=== PATIENT | female | born 1950 | race Caucasian/White ===

== ENCOUNTER 2019-05-31 17:20 | Inpatient (IN) | payer MEDICARE, SELFPAY ==
[2019-05-31] VITALS (10 sets, daily range): BP systolic 132–168; BP diastolic 50–111; PULSE 56–124; RESP 18–20; TEMP 36.2–36.9; O2SAT 96–98; BMI 30.6
--- NOTE | ~2019-05-31 | US_ITS ---
EXAMINATION: US venous doppler LE EXAM DATE: 06/01/2019 16:09 INDICATION: Bilateral leg pain. TECHNIQUE: Multiple grayscale, color flow and Doppler images of the lower extremity deep venous syste ms bilaterally were obtained and reviewed. There is no prior study for comparison. FINDINGS: Right side: The right common femoral, femoral and profunda veins demonstrate normal color flow, respi ratory variation, augmentation and compressibility. Compressibility, color flow confirmed within the right popliteal, posterior tibial, peroneal, and greater saphenous veins. Left side: The left common femoral, femoral and profunda veins demonstrate normal color flow, respira tory variation, augmentation and compressibility. Compressibility, color flow confirmed within the l eft popliteal, posterior tibial, peroneal, and greater saphenous veins. IMPRESSION: 1. No lower extremity deep venous thrombosis bilaterally. Reviewed, dictated and finalized at location B. GER BILINGUAL
--- NOTE | ~2019-05-31 | US_ITS ---
EXAMINATION: US carotid duplex BI DATE: 06/01/2019 16:08 INDICATION: Syncope with multiple falls. Cerebral atherosclerosis. TECHNIQUE: Grayscale, color Doppler, and pulsed Doppler images of the cervical carotid arteries were obtained. The degree of vessel stenosis is placed in one of the following categories: normal, <50%, 5 0-69%, >=70% but less than near-occlusion, near-occlusion, or total occlusion. Note that percent sten osis relative to normal distal artery lumen diameter is indirectly measured from velocity measurement s as described by Arturo, et al. Radiology 2003; [id number]:[id number]. COMPARISON: None. FINDINGS: RIGHT: The right common carotid artery (CCA) peak systolic velocity (PSV) is 72 cm/s. The right internal car otid artery (ICA) PSV is 116 cm/s. The right ICA end-diastolic velocity (EDV) is 38 cm/s. The right I CA/CCA PSV ratio is 1.6. Grayscale and color Doppler images yield an estimate of <50% diameter reduct ion from plaque in the ICA. The external carotid artery (ECA) PSV is 187 cm/s. There is antegrade courtney w in the right vertebral artery. LEFT: The left CCA PSV is 85 cm/s. The left ICA PSV is 189 cm/s. The left ICA EDV is 60 cm/s. The left ICA/ CCA PSV ratio is 2.2. Grayscale and color Doppler images yield an estimate of 50-69% diameter reducti on from plaque in the ICA. The ECA PSV is 116 cm/s. There is antegrade flow in the left vertebral art anton. IMPRESSION: 1. <50% stenosis in the right internal carotid artery. 2. 50-69% stenosis in the left internal carotid artery. 3. Cardiac arrhythmia is present. Correlate with EKG. Reviewed, dictated and finalized at location A. NCT ART HISTORY INSTRUCTOR
--- NOTE | ~2019-05-31 | CT_ITS ---
EXAMINATION: CT brain wo con DATE: 05/31/2019 20:17 INDICATION: Closed head injury TECHNIQUE: Computed tomography (CT) of the head was performed without intravenous contrast. Sagittal and coronal reconstructions were performed. The mA was adjusted according to patient size. Iterative reconstruction technique was employed. The dose-length product was 605.33 mGy-cm. COMPARISON: head CT dated 01/01/2019 FINDINGS: No fracture. No acute intracranial hemorrhage, acute infarction or abnormal extra axial fluid collect ion. Unchanged small old lacunar infarcts at the head of the right caudate nucleus and adjacent anter ior limb of the right internal capsule. There is moderate scattered white matter hypoattenuation cons istent with chronic small vessel ischemic disease. Symmetric prominence of the sulci and subarachnoid spaces overlying the convexities consistent with mild to moderate age-appropriate diffuse cerebral v olume loss. Ventricles are normal and symmetric. No mass/mass effect. Changes of bilateral intraocula r lens replacement. The orbits and mastoid air cells are normal. Coastal thickening at the right fron estela sinus. Mild intracranial calcified cerebral atherosclerosis is noted at the carotid siphons. IMPRESSION: 1. No fracture or acute intracranial process. 2. Small old lacunar infarcts at the head of the right caudate nucleus and anterior limb of the right internal capsule. 3. Age-related changes including mild to moderate diffuse volume loss and moderate scattered white ma tter hypoattenuation consistent with chronic small vessel ischemic disease. Reviewed, dictated and finalized at location A. SIGNALER IMPRESSION: 1. No fracture or acute intracranial process. 2. Small old lacunar infarcts at the head of the right caudate nucleus and ante rior limb of the right internal capsule. 3. Age-related changes including mild to moderate diffuse volume loss and moder ate scattered white matter hypoattenuation consistent with chronic small vessel ischemic disease.
--- NOTE | ~2019-05-31 | XR_ITS ---
EXAMINATION: XR chest 2V DATE: 05/31/2019 18:33 INDICATION: Weakness TECHNIQUE: frontal and lateral views of the chest were obtained. COMPARISON: Chest radiograph dated 04/20/2018 FINDINGS: No focal airspace opacities, pulmonary edema, pleural effusion or pneumothorax. Cardiomegaly. Coronar y artery stenting. Plate-screw fixation for lower cervical anterior spinal fusion. Moderate thoracic spondylosis. IMPRESSION: 1. Cardiomegaly. Reviewed, dictated and finalized at location A. E TENDER IMPRESSION: 1. Cardiomegaly.
--- NOTE | 2019-05-31 18:03 | ECG_ITS ---
Measurements Intervals [place] Rate: 117 P: 22 SC: 140 QRS: -42 QRSD: 109 T: 68 QT: 389 QTc: 544 Interpretive Statements SINUS TACHYCARDIA ATRIAL PREMATURE COMPLEX AND FREQUENT VENTRICULAR PREMATURE COMPLEXES POSSIBLE LEFT ATRIAL ENLARGEMENT LEFT AXIS DEVIATION INCOMPLETE RIGHT BUNDLE BRANCH BLOCK NONSPECIFIC ST & T-WAVE ABNORMALITY- ANT/LAT LEADS BASELINE ARTIFACT- I, II, AVR ABNORMAL ECG Electronically Signed On 05-31-2019 19:06:50 INTERVENTION MANAGER by Andrew Dunbar D.O.
--- NOTE | 2019-05-31 18:24 | ED.WEAKNESS ---
HPI - Weakness General Chief complaint: Weakness Stated complaint: Fall/ weakness Time Seen by Provider: 05/31/19 18:17 Source: patient and RN notes reviewed Mode of arrival: EMS Limitations: no limitations History of Present Illness HPI Narrative: Pt is a 69 y/o female who presents to the ED, via EMS from home, with c/o generalized weakness that began 3 days ago (05/28/19). Pt states that she has not taken her medications for 3 days. Pt fell Friday (05/29/19) PM and lost consciousness for a couple of minutes. Pt has been crawling to get around. Pt states that has not been eating. Pt fell again today. She states that it took 2 men to get her off the couch because she is so weak. Pt also reports mild diarrhea from her colitis and hematochezia d/t her hemorrhoids, but denies a fever, vomiting, cough, and melena. Pt's medical insurance collector is Dr. Jimenez. Complaint: generalized weakness Onset (ago): day(s) (3) Duration: constant Location: generalized Relieving factors: none Associated symptoms: loss of appetite and other (mild diarrhea from her colitis, hematochezia d/t her hemorrhoids) Related Data Allergies Allergy/AdvReac Type Severity Reaction Status Date / Time adhesive tape Allergy Unknown Hives / Verified 05/31/19 18:22 Red Face Penicillins Allergy Unknown Unknown Verified 05/31/19 18:22 Review of Systems Review of Systems: All systems reviewed & are unremarkable except as noted in HPI and below Constitutional: Constitutional: Denies fever(s) and Reports poor appetite Respiratory: Respiratory: Denies cough Gastrointestinal: Gastrointestinal: Denies melena, Reports hematochezia (d/t her hemorrhoids), Reports diarrhea (mild, d/t her colitis) and Denies vomiting Neurologic: Reports weakness (generalized) FORMERLY [facility], [facility]–1983 Past Medical History Medical History (Updated 05/31/19 @ 21:22 by Anton Sharma MD) A-fib CAD (coronary artery disease) Cataracts, bilateral CHF (congestive heart failure) Closed right ankle fracture Colitis Diverticulitis DVT (deep venous thrombosis) Endometriosis Fracture of great toe GERD (gastroesophageal reflux disease) History of angina Hyperlipidemia Hypertension Internal hemorrhoid Left wrist fracture Lupus Myocardial infarction x4, 1996, 1997, 2004, 2017 Nasal sinus polyp Osteoarthritis Peripheral neuropathy Rectal polyp UTI (urinary tract infection) Surgical History Surgical History (Updated 05/31/19 @ 18:32 by Calista Hernandez) H/O cardiac catheterization History of hysterectomy Hx of appendectomy Hx of cataract removal with insertion of prosthetic lens Hx of cholecystectomy Hx of fusion of cervical spine Hx of tonsillectomy Social History Social History (Updated 05/31/19 @ 18:29 by Calista Hernandez) Smoking packs per day: 2 Smoking cigarettes per day: 40.0 Years smoked: 50 Smoking pack-years: 100.00 Smoking status: Former smoker Tobacco type: cigarettes Smoking end date: 04/07/16 Gender identity (if verbalized by the patient): Female Exam Const: General: other (elderly, frail) Nutritional Appearance: well nourished Orientation/consciousness: patient oriented x3 (alert) and Other orientation findings (Alert) Limitations: no limitations HENMT: Head: normocephalic and atraumatic Ears: external ears normal General nose exam: No nasal discharge present and no epistaxis Face and sinus: face symmetric Mouth: Yes lip normal, Yes tongue normal and Yes moist mucous membranes Throat: other (No exudate, no erythema) Eyes: Conjunctivae: conjunctivae normal Sclera: sclerae normal EOM: EOMs intact bilaterally Neck: Neck: full ROM, no lymphadenopathy and supple Thyroid: thyroid normal Chest: Chest palpation & inspection: no tenderness Resp: Effort & Inspection: normal respiratory effort Auscultation: clear to auscultation bilaterally, no rales, no rhonchi, no wheezes and other (breath sounds equal) Cardio: Rate: tachycardic Rhythm: regular rhythm Hear
[2019-05-31 18:29] LABS: Basophils Absolute Auto 0.1 K/mm3 (0.0-0.1); Basophils Percent Auto 0.8 % (0.2-1.2); Eosinophils Absolute Auto 0.1 K/mm3 (0-0.3); Eosinophils Percent Auto 0.5 % (0-4.4); Hematocrit 43.2 % (37.0-47.0); Hemoglobin 13.7 g/dL (12.0-15.0); Immature Granulocyte Absolute 0.06 K/mm3 (0.00-0.031); Immature Granulocyte Percent A 0.5 % (0-0.5); Lymphocytes Absolute Auto 3.34 K/mm3 (0.9-3.2); Lymphocytes Percent Auto 26.1 % (18.3-44.2); Mean Corpuscular HGB Conc 31.7 g/dl (32-36); Mean Corpuscular Hemoglobin 32.2 pg (26-34); Mean Corpuscular Volume 101.4 fl (80-100); Mean Platelet Volume 9.8 fl (7.4-10.4); Monocytes Absolute Auto 1.2 K/mm3 (0.1-0.6); Monocytes Percent Auto 9.1 % (2.6-8.5); Neutrophils Absolute Auto 8.1 K/mm3 (1.3-6.7); Platelet Count Result 277 k/mm3 (150-375); Red Blood Count 4.26 M/mm3 (4.2-5.4); Red Cell Distribution Width 14.6 % (11.5-14.5); White Blood Count 12.8 K/mm3 (4.5-10.0)
[2019-05-31 18:41] LABS: Alanine Aminotransferase 16 U/L (4-35); Albumin Level 4.5 g/dL (3.5-5.1); Alkaline Phosphatase 221 U/L (38-126); Aspartate Amino Transferase 28 U/L (14-36); Bilirubin,Total 0.7 mg/dL (0.2-1.3); Blood Urea Nitrogen 9 mg/dL (7-17); Calcium 9.5 mg/dL (8.4-10.2); Carbon Dioxide 25 mmol/L (22-30); Chloride 103 mmol/L (98-107); Estimated CRCL calculation 76 ml/min; Estimated Glomerular Filt Rate > 60; Glucose 119 mg/dL (65-105); Potassium 3.6 mmol/L (3.4-5.0); Sodium 141 mmol/L (137-145)
[2019-05-31 19:20] LABS: Add Urine Microscopic? YES; Amorphous Sediment Urine Few; Appearance Urine Clear (Clear); Bacteria Urine 3+ /hpf; Bilirubin Urine Negative (Negative); Blood Urine Negative (Negative); Color Urine Yellow (Yellow); Glucose Urine UA Negative (Negative); Ketones Urine 1+ mg/dL (Negative); Leukocyte Esterase Ur Trace LEU/UL (Negative); Mucus Urine Rare /lpf; Nitrate Urine Negative (Negative); Protein Urine 2+ mg/dL (Negative); RBC Urine 0-2 /hpf (0-2); Specific Grav Ur 1.018 (1.001-1.035); Squamous Epithelial Cell Urine Rare /hpf (Few)
[2019-05-31 19:48] LABS: NT Pro B Type Natriuretic Pept 2560 PG/ML (5-100)
[2019-05-31 19:55] LABS: Free T4 Free Thyroxine 1.27 ng/mL (0.78-2.19)
[2019-05-31 20:09] LABS: Thyroid Stimulating Hormone 0.751 uIU/mL (0.465-4.680)
[2019-05-31] MEDS: LACTATED RINGERS 1,000 ML 999 ML IV CONT (20:11)
[2019-05-31 20:52] LABS: Magnesium 2.3 mg/dL (1.6-2.3); Phosphorus 3.4 mg/dL (2.5-4.5)
--- NOTE | 2019-05-31 22:29 | ADMGEN ---
This patient, Jody Ingram, was admitted to 2 Medical Room 249-01. Patient/family oriented to hospital policies and general routines including ID bracelet, bed and alarms, visiting hours, pain management, procedures, bathroom and other care routines, personal items, smoking policy, room service/diet, and visiting hours. Valuables list has been completed. Information on how to activate the Rapid Response Team has been discussed. Patient/Family are encouraged to report perceived risks to care and to ask questions if they do not understand what they are told or what they should do.
[2019-05-31] MEDS: ACETAMINOPHEN 325 MG TABLET 650 MG PO (23:46)
[2019-05-31] MEDS: LACTATED RINGERS 1,000 ML 125 ML IV CONT (23:47)
[2019-06-01] VITALS (10 sets, daily range): BP systolic 123–181; BP diastolic 77–86; PULSE 66–115; RESP 16–20; TEMP 36.1–36.6; O2SAT 96–98
--- NOTE | 2019-06-01 | ECHO_ITS ---
Patient Info Name: Jody Ingram Age: 69 years : 1950 Gender: Female Ht: 68 in Wt: 196 lbs BSA: 2.09 m2 HR: 63 bpm BP: 181 / 77 mmHg Heart Rhythm: Sinus Rhythm Technical Quality: Good Exam Date: 06/01/2019 10:44 AM Exam Location: [facility] Patient Status: Outpatient Admit Date: 05/31/2019 Staff Ordering Physician: Anton Sharma MD Cook Fishing Vessel: Tomy Salazar RDCS, RT Attending Provider: Alice Smith PA-C Referring Physician: Zachary RODRIGUES; Exam Type: CA echo doppler color flow Study Info Indications I50.9 - Heart failure, unspecified Complete two-dimensional, color flow and Doppler transthoracic echocardiogram is performed. Summary 1. The basal inferolateral wall, and mid inferolateral wall are hypokinetic. 2. Left atrial chamber dimension is mildly enlarged. 3. There is mild aortic valve calcification. 4. There is mild aortic valve regurgitation. 5. There is moderate mitral valve regurgitation. 6. There is mild pulmonic regurgitation. 7. Left ventricular chamber dimension is mildly enlarged. 8. Left ventricular systolic function is normal, estimated at 55-60%. 9. The left ventricular diastolic function is grade I diastolic dysfunction. Left Ventricle Left ventricular chamber dimension is mildly enlarged. Left ventricular systolic function is normal, estimated at 55-60%. There is moderately increased left ventricular wall thickness. The left ventricular diastolic function is grade I diastolic dysfunction. The basal inferolateral wall, and mid inferolateral wall are hypokinetic. All other stevenson appear normal. Right Ventricle Right ventricular chamber dimension is normal. Right ventricular systolic function is normal. Left Atria Left atrial chamber dimension is mildly enlarged. Right Atria Right atrial chamber dimension is normal. Atrial Septum Intact interatrial septum visualized by color flow imaging. Aortic Valve The aortic valve is trileaflet. There is mild aortic valve sclerosis. There is no aortic valve stenosis. There is mild aortic valve regurgitation. There is mild aortic valve calcification. Pulmonic Valve The pulmonic valve is normal. There is no pulmonic valve stenosis. There is mild pulmonic regurgitation. Mitral Valve The mitral valve has calcified annulus. There is no mitral valve stenosis. There is moderate mitral valve regurgitation. Tricuspid Valve The tricuspid valve leaflets are normal. There is no significant tricuspid valve stenosis. There is trace tricuspid valve regurgitation. Pericardium/Pleural The pericardium appears normal. There is no pericardial effusion. Inferior Vena Cava Normal inferior vena cava with >50% collapse upon inspiration consistent with normal right atrial pressure, 8 mmHg. Aorta The aortic root size at the sinus of Valsalva is normal. Left Ventricular Outflow Tract Name Value Normal LVOT 2D LVOT Diameter 1.9 cm LVOT Doppler LVOT Peak Gradient 3 mmHg LVOT Mean Gradient 2 mmHg LVOT VTI 20 cm
[2019-06-01 07:34] LABS: Hematocrit 37.3 % (37.0-47.0); Hemoglobin 11.8 g/dL (12.0-15.0); Mean Corpuscular HGB Conc 31.6 g/dl (32-36); Mean Corpuscular Hemoglobin 32.2 pg (26-34); Mean Corpuscular Volume 101.9 fl (80-100); Mean Platelet Volume 9.7 fl (7.4-10.4); Platelet Count Result 218 k/mm3 (150-375); Red Blood Count 3.66 M/mm3 (4.2-5.4); Red Cell Distribution Width 14.6 % (11.5-14.5)
[2019-06-01 07:43] LABS: Blood Urea Nitrogen 7 mg/dL (7-17); Calcium 8.5 mg/dL (8.4-10.2); Carbon Dioxide 23 mmol/L (22-30); Chloride 105 mmol/L (98-107); Estimated CRCL calculation 108 ml/min; Estimated Glomerular Filt Rate > 60; Glucose 105 mg/dL (65-105); Potassium 3.2 mmol/L (3.4-5.0); Sodium 139 mmol/L (137-145)
[2019-06-01] MEDS: allopurinoL 100 MG TABLET PO (08:00)
[2019-06-01] MEDS: POTASSIUM CHLORIDE 10 MEQ TABLET.ER PO (08:00)
[2019-06-01] MEDS: METOPROLOL TARTRATE 50 MG TAB 200 MG PO ×2 (08:00→20:26)
[2019-06-01] MEDS: ISOSORBIDE MONONITRATE 60 MG TAB.ER.24H PO (08:00)
[2019-06-01] MEDS: FUROSEMIDE 40 MG TABLET PO (08:00)
[2019-06-01] MEDS: ATORVASTATIN 40 MG TABLET PO (08:00)
[2019-06-01] MEDS: ASPIRIN 81 MG CHEWABLE TABLET PO (08:01)
[2019-06-01] MEDS: HYOSCYAMINE SULFATE 0.125 MG TABLET PO ×2 (08:01→16:21)
[2019-06-01] MEDS: LACTATED RINGERS 1,000 ML 125 ML IV CONT (08:01)
[2019-06-01] MEDS: lisinopriL 5 MG TABLET PO (08:01)
[2019-06-01] MEDS: TICAGRELOR 90 MG TABLET PO ×2 (08:01→16:21)
[2019-06-01] MEDS: ACETAMINOPHEN 325 MG TABLET 650 MG PO ×2 (08:07→23:34)
--- NOTE | 2019-06-01 10:21 | PM.IMHP ---
H&P: HPI History of Present Illness Chief complaint: Weakness, falls Narrative: Date of Service 06/01/19 The supervising physician for this history and physical is Dr Goldman. Ms. Ingram is a 69yo F with history of coronary artery disease with four prior MIs, atrial fibrillation, colitis, hypertension, and lupus who presented to the emergency department due to weakness and falls. She reports she fell Monday 05/29 while attempting to stand up from using the toilet when she fell forwards and hit her head. She reports she felt as though her knees gave out from under her. She notes she also fell again yesterday due to feeling weak. She reports she does not normally use a cane or walker to ambulate and lives at home alone. She tells me she did not eat or take any of her medications for the last 3 days in hopes that she would have to use the bathroom less, because she was too weak to get to the bathroom on her own. Today she complains of pain everywhere and cannot really elaborate much on where the pain is worst. She reports exertional dyspnea with lesser and lesser activity. She denies chest pain. She reports some intermittent nausea and abdominal cramping which is not abnormal for her with her colitis. She reports watery stool last night and notes that she alternates between constipation and diarrhea chronically due to colitis. She notes minimal bright red blood on tissue with wiping lately which she attributes to her known internal hemorrhoids, otherwise denies dorie blood in stool, melena, or hematemesis. She denies dysuria or hematuria. Denies headaches. CT brain on arrival shows no evidence of acute stroke or bleeding but demonstrates small old lacunar infarcts and evidence of small vessel ischemic disease. Chest XR shows cardiomegaly but otherwise clear. Routine labs demonstrate a mild leukocytosis, macrocytic anemia which is chronic and near her baseline, and mild hypokalemia. She is admitted to observation for evaluation of weakness and falls. Review of Systems Review of Systems: Narrative: She denies chest pain. She reports dyspnea on exertion. Weakness over the weekend with 2 falls. She denies weight loss or night sweats. Twelve systems were reviewed with pertinent positives and negatives as per HPI. [facility] Past Medical History Medical History A-fib CAD (coronary artery disease) Cataracts, bilateral CHF (congestive heart failure) Closed right ankle fracture Colitis Diverticulitis DVT (deep venous thrombosis) Endometriosis Fracture of great toe GERD (gastroesophageal reflux disease) History of angina Hyperlipidemia Hypertension Internal hemorrhoid Left wrist fracture Lupus Myocardial infarction x4, 1997, 1998, 2005, 2017 Nasal sinus polyp Osteoarthritis Peripheral neuropathy Rectal polyp UTI (urinary tract infection) Surgical History Surgical History H/O cardiac catheterization History of hysterectomy Hx of appendectomy Hx of cataract removal with insertion of prosthetic lens Hx of cholecystectomy Hx of fusion of cervical spine Hx of tonsillectomy Family History Family History (Updated 05/31/19 @ 23:05 by Beto Gavin RN) Mother Stomach cancer Sibling Breast cancer Father Cerebrovascular accident Sibling CAD (coronary artery disease) Social History Social History (Updated 06/01/19 @ 10:49 by Alice Smith PA-C) Social History: Ms. Ingram lives at home alone in [place]. She reports alcohol use rarely, on holidays. She reports smoking more cigarettes when she is in pain but does not normally smoke daily. She reports smoking around 10 cigarettes over the weekend and has been smoking on and off for 50 years. Denies substance use. Her PCP is Dr Andrea Mackay at [facility]. We discussed code status and she wishes to make her code status Do Not Resuscitate. Smoking packs per day: 1.5 Smoking ciga
--- NOTE | 2019-06-01 15:16 | PC.NURSE ---
Patient to ultrasound per stretcher.
[2019-06-01] MEDS: LACTATED RINGERS 1,000 ML 100 ML IV CONT (17:29)
[2019-06-02] VITALS (7 sets, daily range): BP systolic 136–148; BP diastolic 67–70; PULSE 62–80; RESP 18; TEMP 36; O2SAT 95–99
[2019-06-02] MEDS: LACTATED RINGERS 1,000 ML 100 ML IV CONT (03:31)
[2019-06-02 05:25] LABS: Hematocrit 36.2 % (37.0-47.0); Hemoglobin 11.7 g/dL (12.0-15.0); Mean Corpuscular HGB Conc 32.3 g/dl (32-36); Mean Corpuscular Hemoglobin 32.6 pg (26-34); Mean Corpuscular Volume 100.8 fl (80-100); Mean Platelet Volume 9.4 fl (7.4-10.4); Platelet Count Result 213 k/mm3 (150-375); Red Blood Count 3.59 M/mm3 (4.2-5.4); Red Cell Distribution Width 14.4 % (11.5-14.5); White Blood Count 10.7 K/mm3 (4.5-10.0)
[2019-06-02 05:45] LABS: Blood Urea Nitrogen 7 mg/dL (7-17); CRP 1.2 mg/dL (<1.0); Calcium 8.5 mg/dL (8.4-10.2); Carbon Dioxide 23 mmol/L (22-30); Chloride 103 mmol/L (98-107); Estimated CRCL calculation 108 ml/min; Estimated Glomerular Filt Rate > 60; Glucose 103 mg/dL (65-105); Magnesium 1.8 mg/dL (1.6-2.3); Phosphorus 3.5 mg/dL (2.5-4.5); Potassium 3.3 mmol/L (3.4-5.0); Sodium 139 mmol/L (137-145)
[2019-06-02 06:14] LABS: Erythrocyte Sedimentation Rate 47 mm/hr (0-20)
[2019-06-02] MEDS: ASPIRIN 81 MG CHEWABLE TABLET PO (09:10)
[2019-06-02] MEDS: HYOSCYAMINE SULFATE 0.125 MG TABLET PO (09:10)
[2019-06-02] MEDS: ISOSORBIDE MONONITRATE 60 MG TAB.ER.24H PO (09:10)
[2019-06-02] MEDS: lisinopriL 5 MG TABLET PO (09:10)
[2019-06-02] MEDS: POTASSIUM CHLORIDE 20 MEQ TABLET PO (09:10)
[2019-06-02] MEDS: allopurinoL 100 MG TABLET PO (09:10)
[2019-06-02] MEDS: METOPROLOL TARTRATE 50 MG TAB 200 MG PO (09:10)
[2019-06-02] MEDS: FUROSEMIDE 40 MG TABLET PO (09:10)
[2019-06-02] MEDS: ATORVASTATIN 40 MG TABLET PO (09:10)
[2019-06-02] MEDS: TICAGRELOR 90 MG TABLET PO (09:11)
[2019-06-02] MEDS: POTASSIUM CHLORIDE 10 MEQ TABLET.ER PO (09:11)
--- NOTE | 2019-06-02 17:48 | PM.DS ---
DS: Diagnosis Admitting Diagnosis Admitting Diagnosis: Weakness Discharge Diagnosis (1) Generalized weakness: Code(s): R53.1 - Weakness Status: Acute Assessment and Plan: Date of Service 06/02/19 Ms. Ingram is a 69yo F with history of coronary artery disease, hypertension, lupus, and colitis who presented to the ER for evaluation of weakness. She had fallen twice at home over the weekend prior to arrival. She felt weak trying to get off of the toilet and fell forward and hit her head. CT brain shows small old right-sided lacunar infarcts with no acute fracture or bleed. Her EKG showed frequent PVCs and incomplete RBBB which is similar to previous EKGs. She denied any chest pain or shortness of breath. She did feel some palpitations with these PVCs at times. Chest XR demonstrated cardiomegaly but otherwise no acute findings. Echocardiogram showed normal systolic function, EF 55-60% with grade I diastolic dysfunction; multiple hypokinetic stevenson given her history of multiple MIs, echo detailed below. Venous dopplers of bilateral lower extremities showed no DVT. Carotid dopplers showed < 50% stenosis in right ICA; 50-69% stenosis in left ICA. Possible contributing factors to her weakness include deconditioning and debility, myalgia or arthritis related to her lupus. Suggested follow up with her track walker for further work up, possible polymyalgia rheumatica?, if she continues to have these symptoms. ESR elevated, CRP slightly elevated at 1.2 may make PMR less likely. She worked with PT/OT and walked in the room with a walker. She does not have a primary care provider despite having multiple specialists. A detailed discussion regarding the importance of establishing with PCP was held with the patient so that she could get home health arranged. She described that when she gets sick outside of her specialists' scope, she comes to the ER to seek care. Offers for discharging to a facility were made but she declined due to financial reasons. Etiology unclear. Seems to have a sedentary lifestyle without any help at home. PT/OT evals appreciated. Differential includes deconditioning and debility, myalgia secondary to lupus, PMR? She does have a history of autoimmune disorders including lupus and also what sounds to be carpal tunnel syndrome to right wrist (2) Bacteriuria: Code(s): R82.71 - Bacteriuria Status: Acute Assessment and Plan: Asymptomatic. Urine culture negative. (3) CAD (coronary artery disease): Code(s): I25.10 - Atherosclerotic heart disease of [place] coronary artery without angina pectoris Status: Chronic Assessment and Plan: History of 4 MIs and believes she has greater than 5 coronary stents, last in 2017. She follows with Dr Jimenez. She denies chest pain today. Continue home medications. (4) Colitis: Code(s): K52.9 - Noninfective gastroenteritis and colitis, unspecified Status: Chronic Assessment and Plan: Follows with Dr Dooley. Alternates between constipation and diarrhea. She complains of loose stool at this time. (5) Lupus: Code(s): M32.9 - Systemic lupus erythematosus, unspecified Status: Chronic Assessment and Plan: Follow up with her track walker and clinical programmer in [facility]. Her track walker is Dr Roejlio Mackay. DS: Summary Time Spent with Patient Time attestation: Total time spent providing and/or coordinating discharge services: 45 minutes Exam Narrative: Exam Narrative: General: Chronically ill-appearing female resting sitting up in bedside chair in no acute distress. HEENT: Normocephalic, healing bruise to right frontal region with no open wounds, EOMI, PERRL, oral mucosa moist. Neck: Supple. Chest: Decreased breath sounds due to poor effort but clear to ausculta
== END 2019-06-02 15:39 | disposition home or self-care (01) | DRG 948 ==
LOC: ANHED 21:22 → ANH2MED 21:50
PROVIDERS: Physician Assistant; Admitting Provider Internal Medicine; Emergency Provider Emergency Medicine; Visit Provider Family Medicine
DX: R53.1 Weakness (principal); I25.10 Atherosclerotic heart disease of native coronary artery without angina pectoris; I25.2 Old myocardial infarction; I48.91 Unspecified atrial fibrillation; I10 Essential (primary) hypertension; M32.9 Systemic lupus erythematosus, unspecified; W19.XXXA Unspecified fall, initial encounter; K64.8 Other hemorrhoids; D53.9 Nutritional anemia, unspecified; E87.6 Hypokalemia; Z86.718 Personal history of other venous thrombosis and embolism; K21.9 Gastro-esophageal reflux disease without esophagitis; E78.5 Hyperlipidemia, unspecified; M19.90 Unspecified osteoarthritis, unspecified site; G62.9 Polyneuropathy, unspecified; Z87.19 Personal history of other diseases of the digestive system; Z87.440 Personal history of urinary (tract) infections; Z90.710 Acquired absence of both cervix and uterus; Z98.1 Arthrodesis status; F17.210 Nicotine dependence, cigarettes, uncomplicated; R82.71 Bacteriuria; K52.9 Noninfective gastroenteritis and colitis, unspecified; Z98.49 Cataract extraction status, unspecified eye; Z96.1 Presence of intraocular lens
CPT/HCPCS: 36415; 51701; 70450; 71046; 80048; 80053; 81001; 83735; 83880; 84100; 84439; 84443; 85025; 85027; 85652; 86140; 87086; 93005; 93306; 93880; 93970; 96360; 96361; 97110; 97116; 97161; 97165; 97530; 99285; A9270; G0378; J7120

== ENCOUNTER 2019-07-05 10:30 | Emergency (ER) | payer MEDICARE, SELFPAY ==
[2019-07-05] VITALS (7 sets, daily range): BP systolic 123–179; BP diastolic 51–99; PULSE 63–85; RESP 15–22; TEMP 36.8; O2SAT 93–99
--- NOTE | ~2019-07-05 | XR_ITS ---
XR knee RT 3V DATE: 07/05/2019 12:04 INDICATION: Fall. Right knee injury. Right knee is giving out. TECHNIQUE: [employer] and AP and lateral views COMPARISON: None FINDINGS: Small suprapatellar knee joint effusion may be present. No fracture, dislocation, periosteal reaction or bone destruction. Joint spaces appear well preserved . No radiopaque intra-articular loose body or chondrocalcinosis. IMPRESSION: Possible small suprapatellar knee joint effusion Reviewed, dictated and finalized at location B.
--- NOTE | ~2019-07-05 | XR_ITS ---
EXAMINATION: XR foot RT min 3V DATE: 07/05/2019 12:04 INDICATION: Right toe injury with generalized right foot pain TECHNIQUE: Dorsoplantar, two oblique and lateral views of the right foot were obtained. COMPARISON: None. FINDINGS: Diffuse osteopenia. Postoperative changes at the right fifth toe with resection of the head of the fi fth metatarsal and widening of the fifth metatarsophalangeal joint space. Bone alignment is otherwise normal. No fracture. Mild polyarticular osteoarthritis at multiple tarsal metatarsal, metatarsophala ngeal and interphalangeal joints. Small plantar calcaneal spur. Soft tissues are unremarkable. No ank le joint effusion. IMPRESSION: 1. Chronic degenerative and postoperative changes as detailed above. No acute osseous abnormality. Reviewed, dictated and finalized at location A. IMPRESSION: 1. Chronic degenerative and postoperative changes as detailed above. No acute o sseous abnormality.
--- NOTE | 2019-07-05 10:55 | ED.FALL ---
HPI - Fall General Chief Complaint: Fall Stated Complaint: Fall Time Seen by Provider: 07/05/19 10:33 Source: patient Mode of arrival: EMS Limitations: no limitations History of Present Illness HPI Narrative: Pt is a 69 y/o female who presents to the ED, via EMS, secondary to a fall that occurred this morning. Pt states that she has frequent falls and this morning her knees gave out and she injured her rt leg. She reports rt knee pain and pain to her rt toes. Pt denies any dizziness. She has a H/o [place] and lupus. complaint: fall Onset (ago): day(s) (this morning) Fall from: standing Place fall occurred: home Symptoms prior to fall: other (knee weakness) Context: history of frequent falls Location of injury - extremities: Right: knee and foot Associated symptoms (after fall): denies Related Data Home Medications Medication Instructions Recorded Confirmed Adult Low Dose Aspirin 81 mg PO DAILY 05/31/19 05/31/19 Brilinta 90 mg PO BID 05/31/19 05/31/19 allopurinol 100 mg PO DAILY 05/31/19 05/31/19 atorvastatin 40 mg PO DAILY 05/31/19 05/31/19 dxssqem-[id number]-[id number]-caff 1 cap PO DAILY PRN 05/31/19 05/31/19 [Butalbital Compound W/Codeine] ergocalciferol (vitamin D2) 1,250 unit PO WEEKLY 05/31/19 05/31/19 furosemide 40 mg PO DAILY 05/31/19 05/31/19 hyoscyamine sulfate 0.125 mg PO BID 05/31/19 05/31/19 isosorbide mononitrate 60 mg PO DAILY 05/31/19 05/31/19 lisinopril 5 mg PO DAILY 05/31/19 05/31/19 meclizine 12.5 mg PO Q6H PRN 05/31/19 05/31/19 metoprolol tartrate 200 mg PO BID 05/31/19 05/31/19 nitroglycerin [Nitrostat] 0.6 mg SUBLINGUAL Q5M PRN 05/31/19 05/31/19 omalizumab 150 mg SUBCUT MONTHLY 05/31/19 05/31/19 potassium chloride 10 meq PO DAILY 05/31/19 05/31/19 Allergies Allergy/AdvReac Type Severity Reaction Status Date / Time adhesive tape Allergy Unknown Hives / Verified 07/05/19 10:35 Red Face Penicillins Allergy Unknown Unknown Verified 07/05/19 10:35 Review of Systems Review of Systems: All systems reviewed & are unremarkable except as noted in HPI and below Musculoskeletal: Musculoskeletal: Reports arthralgias (rt knee), Reports muscle weakness (knee) and Reports other (rt toe pain) Neurologic: Denies dizziness and Reports frequent falls PMFSH Past Medical History Medical History A-fib CAD (coronary artery disease) Cataracts, bilateral CHF (congestive heart failure) Closed right ankle fracture Colitis Diverticulitis DVT (deep venous thrombosis) Endometriosis Fracture of great toe GERD (gastroesophageal reflux disease) History of angina Hyperlipidemia Hypertension Internal hemorrhoid Left wrist fracture Lupus Myocardial infarction x4, 1996, 1997, 2004, 2017 Nasal sinus polyp Osteoarthritis Peripheral neuropathy Rectal polyp UTI (urinary tract infection) Surgical History Surgical History H/O cardiac catheterization History of hysterectomy Hx of appendectomy Hx of cataract removal with insertion of prosthetic lens Hx of cholecystectomy Hx of fusion of cervical spine Hx of tonsillectomy Family History Family History (Updated 05/31/19 @ 23:05 by Beto Gavin RN) Mother Stomach cancer Sibling Breast cancer Father Cerebrovascular accident Sibling CAD (coronary artery disease) Social History Social History Social History: Ms. Ingram lives at home alone in [place]. She reports alcohol use rarely, on holidays. She reports smoking more cigarettes when she is in pain but does not normally smoke daily. She reports smoking around 10 cigarettes over the weekend and has been smoking on and off for 50 years. Denies substance use. Her PCP is Dr Andrea Mackay at [facility]. We discussed code status and she wishes to make her code status Do Not Resuscitate. Smoking packs per day: 1.5 Smoking cigarettes per day: 30.0 Years smoked:
[2019-07-05 12:13] LABS: Basophils Absolute Auto 0.1 K/mm3 (0.0-0.1); Eosinophils Absolute Auto 0.2 K/mm3 (0-0.3); Eosinophils Percent Auto 2.2 % (0-4.4); Hematocrit 43.3 % (37.0-47.0); Hemoglobin 13.5 g/dL (12.0-15.0); Immature Granulocyte Absolute 0.05 K/mm3 (0.00-0.031); Immature Granulocyte Percent A 0.5 % (0-0.5); Lymphocytes Absolute Auto 2.82 K/mm3 (0.9-3.2); Lymphocytes Percent Auto 30.9 % (18.3-44.2); Mean Corpuscular HGB Conc 31.2 g/dl (32-36); Mean Corpuscular Hemoglobin 31.5 pg (26-34); Mean Corpuscular Volume 101.2 fl (80-100); Mean Platelet Volume 9.6 fl (7.4-10.4); Monocytes Absolute Auto 0.7 K/mm3 (0.1-0.6); Monocytes Percent Auto 7.8 % (2.6-8.5); Neutrophils Absolute Auto 5.3 K/mm3 (1.3-6.7); Neutrophils Percent Auto 57.6 % (45.5-73.1); Platelet Count Result 236 k/mm3 (150-375); Red Blood Count 4.28 M/mm3 (4.2-5.4); White Blood Count 9.1 K/mm3 (4.5-10.0)
[2019-07-05 12:24] LABS: Blood Urea Nitrogen 9 mg/dL (7-17); Calcium 9.4 mg/dL (8.4-10.2); Carbon Dioxide 22 mmol/L (22-30); Chloride 110 mmol/L (98-107); Estimated CRCL calculation 79 ml/min; Estimated Glomerular Filt Rate > 60; Glucose 102 mg/dL (65-105); Potassium 4.1 mmol/L (3.4-5.0); Sodium 140 mmol/L (137-145)
[2019-07-05 12:36] LABS: Troponin I < 0.012 ng/mL (0.000-0.034)
--- NOTE | 2019-07-05 13:25 | ECG_ITS ---
Measurements Intervals [place] Rate: 62 P: 3 ME: 147 QRS: -34 QRSD: 132 T: -22 QT: 448 QTc: 456 Interpretive Statements SINUS RHYTHM POSSIBLE LEFT ATRIAL ENLARGEMENT LEFT AXIS DEVIATION RIGHT BUNDLE BRANCH BLOCK POSSIBLE LEFT VENTRICULAR HYPERTROPHY LATERAL INFARCT, AGE INDETERMINATE BASELINE ARTIFACT- I, II, III, AVR, AVL, AVF, V5 ABNORMAL ECG Electronically Signed On 07-05-2019 14:00:13 CDT by Andrew Dunbar D.O.
--- NOTE | 2019-07-05 14:09 | PC.NURSE ---
Dr Sharma privately arranged this transfer via his personal cell phone machinist did not make any phone calls
[2019-07-05 14:46] LABS: Add Urine Microscopic? NO; Appearance Urine Clear (Clear); Bilirubin Urine Negative (Negative); Blood Urine Negative (Negative); Color Urine Yellow (Yellow); Glucose Urine UA Negative (Negative); Ketones Urine Negative (Negative); Leukocyte Esterase Ur Negative LEU/UL (Negative); Nitrate Urine Negative (Negative); Protein Urine Negative (Negative); Specific Grav Ur 1.014 (1.001-1.035); Urobilinogen Urine Negative mg/dL (<2.0)
== END 2019-07-05 16:30 | disposition short-term general hospital (02) ==
PROVIDERS: Emergency Provider Emergency Medicine
DX: R25.2 Cramp and spasm (principal); M32.9 Systemic lupus erythematosus, unspecified; R29.6 Repeated falls; F17.210 Nicotine dependence, cigarettes, uncomplicated; I48.91 Unspecified atrial fibrillation; I25.10 Atherosclerotic heart disease of native coronary artery without angina pectoris; I50.9 Heart failure, unspecified; Z86.718 Personal history of other venous thrombosis and embolism; N80.9 Endometriosis, unspecified; K21.9 Gastro-esophageal reflux disease without esophagitis; E78.5 Hyperlipidemia, unspecified; I11.0 Hypertensive heart disease with heart failure; I25.2 Old myocardial infarction; M19.90 Unspecified osteoarthritis, unspecified site; Z87.440 Personal history of urinary (tract) infections; G62.9 Polyneuropathy, unspecified; Z87.19 Personal history of other diseases of the digestive system; Z98.42 Cataract extraction status, left eye; Z98.41 Cataract extraction status, right eye; Z96.1 Presence of intraocular lens
CPT/HCPCS: 36415; 51701; 73562; 73630; 80048; 81003; 84484; 85025; 93005; 99285; A9270

== ENCOUNTER 2019-09-23 12:07 | Inpatient (IN) | payer MEDICARE, SELFPAY ==
--- NOTE | ~2019-09-23 | XR_ITS ---
EXAMINATION: XR ankle RT min 3V INDICATION: Right ankle pain after fall TECHNIQUE: Four views of the right ankle are obtained. COMPARISON: None available FINDINGS: The bones are osteopenic which limits the sensitivity for fracture however none is seen. Prashanth ne alignment is normal. The soft tissues are unremarkable. There is mild osteoarthritis of the midfoo t. IMPRESSION: 1. No acute osseous abnormality. Reviewed, dictated and finalized at location A.
--- NOTE | ~2019-09-23 | CT_ITS ---
EXAMINATION: CT brain wo con INDICATION: Head injury COMPARISON: 05/31/2019 TECHNIQUE: Standard unenhanced head CT. The dose-length product (DLP) was 681.00 mGy-cm. The mA was a djusted according to patient size. Iterative reconstruction technique was employed. FINDINGS: There is no acute intraparenchymal hemorrhage. No evidence of mass lesion. No evidence of a cute infarction. Areas of prior infarction are noted in the right internal capsule and caudate nucleu s. There is mild periventricular and subcortical hypodensity probably related to small vessel ischemi c disease. There is mild prominence of the sulci and ventricles related to cerebral atrophy. Intracra nial calcified cerebral atherosclerosis is noted. There are no extra-axial collections. There is no m ass effect or midline shift. Changes in the globes are likely from ocular lens surgery. The visualiz ed sinuses and mastoid air cells are well aerated. IMPRESSION: 1. No acute intracranial abnormality. 2. Age related findings. Reviewed, dictated and finalized at location A.
--- NOTE | ~2019-09-23 | MR_ITS ---
EXAMINATION: MR brain/brain stem wo/w con DATE: 09/24/2019 16:07 INDICATION: Chronic right-sided weakness TECHNIQUE: Magnetic resonance imaging (MRI) of the brain and brainstem was performed without and with 17 mL Multihance intravenous contrast. Sequences included sagittal and axial T1-weighted SE, axial d iffusion-weighted FS SE, axial T2*-weighted GRE, axial T2-weighted FLAIR, and axial T2-weighted FSE. Postcontrast axial and coronal T1-weighted SE was obtained. Apparent diffusion coefficient (ADC) maps were created. COMPARISON: None. FINDINGS: There are no areas of restricted diffusion to suggest acute infarction. Again seen are small old lacu surinder infarcts at the head of the right caudate nucleus and adjacent anterior limb of the right interna l capsule. No intracranial hemorrhage or abnormal intracranial mass lesion. There are scattered areas of nonspecific increased T2-weighted signal intensity in the cerebral white matter, predominantly in volving the deep and periventricular white matter. There are no intraparenchymal signal abnormalities seen on the other pulse sequences. The ventricles are symmetric and normal in size. There are no abn ormal extra-axial fluid collections. Flow voids are seen in the cerebral arteries on the T2-weighted sequences consistent with their expected patency. Changes of bilateral intraocular lens replacement. Mild mucosal thickening in the paranasal sinuses. Visualized orbits and soft tissues are unremarkable . There are no areas of abnormal enhancement on the post contrast images. Hyperostosis frontalis. IMPRESSION: 1. Unchanged small old lacunar infarcts at the head of the right caudate nucleus and anterior limb of the right internal capsule. No acute intracranial process. 2. Mild scattered periventricular predominant white matter T2 hyperintensity which is within normal l imits for age and likely sequela of chronic small vessel ischemic disease. Reviewed, dictated and finalized at location A. IMPRESSION: 1. Unchanged small old lacunar infarcts at the head of the right caudate nucleu s and anterior limb of the right internal capsule. No acute intracranial proces s. 2. Mild scattered periventricular predominant white matter T2 hyperintensity wh ich is within normal limits for age and likely sequela of chronic small vessel ischemic disease.
--- NOTE | ~2019-09-23 | CT_ITS ---
EXAMINATION: CT lumbar spine wo con DATE: 09/23/2019 15:12 INDICATION: Low back pain. TECHNIQUE: Computed tomography (CT) of the lumbar spine was performed without intravenous contrast. A utomated exposure control and iterative reconstruction technique were employed. The dose-length produ ct was 1238.28 mGy-cm. COMPARISON: None FINDINGS: There is 5 degrees dextrocurvature of thoracolumbar spine. Vertebral body heights are amaris l. There is moderately decreased disc height at L2-L3 and severely decreased disc height from L3-L4 t hrough L5-S1. There is a benign bone island in left sacral ala. The following disc levels are specifi rito discussed: L1-L2: The disc does not extend beyond the endplate margin. There is severe bilateral facet joint ost eoarthritis. There is no neural foraminal stenosis. There is no central canal stenosis. L2-L3: The disc is bulging. There is moderate right and mild left facet joint osteoarthritis. There i s moderate right and mild left neural foraminal stenosis. There is mild central canal stenosis. L3-L4: The disc is bulging. There is severe right and moderate left facet joint osteoarthritis. There is moderate right and mild left neural foraminal stenosis. There is mild central canal stenosis. L4-L5: The disc is bulging. There is severe bilateral facet joint osteoarthritis. There is moderate r ight and mild left neural foraminal stenosis. There is mild central canal stenosis. L5-S1: The disc is bulging. There is severe bilateral facet joint osteoarthritis. There is moderate b ilateral neural foraminal stenosis. There is mild central canal stenosis. IMPRESSION: 1. Severe lumbar spondylosis. Reviewed, dictated and finalized at location A.
--- NOTE | ~2019-09-23 | CT_ITS ---
EXAMINATION: CT cervical spine wo con DATE: 09/26/2019 16:02 INDICATION: Chronic right-sided weakness TECHNIQUE: Computed tomography (CT) of the cervical spine was performed without intravenous contrast. Automated exposure control and iterative reconstruction technique were employed. The dose-length pro duct was 459.56 mGy-cm. COMPARISON: None FINDINGS: Moderate osteoarthritis at the atlantoaxial articulation. C5-C7 anterior spinal fusion with anterior plate and screw fixation. 2 mm anterolisthesis C3 on C4, T1 on T2 in one-2 mm anterolisthesis C7 on T 1. Unfused vertebral body heights are normal. Moderate disc height loss at C4-C5. Mild disc height lo ss at the remaining unfused levels between C2-C3 and T1-T2. Atherosclerotic calcific a cyst at the bi lateral carotid bulbs, right greater than left. Mild emphysema at the bilateral apices of the lungs. The following disc levels are specifically discussed: C2-C3: There is minimal uncovertebral joint osteoarthritis. There is mild right and moderate left fac et joint osteoarthritis. There is no neural foraminal stenosis. There is no central canal stenosis. C3-C4: Disc is mildly bulging. There is mild left and moderate right uncovertebral joint osteoarthrit is. There is mild left and severe right facet joint osteoarthritis. There is mild left and moderate r ight neural foraminal stenosis. There is mild central canal stenosis. C4-C5: Posterior disc osteophyte complex. There is severe bilateral uncovertebral joint osteoarthriti s. There is mild to moderate left and severe right facet joint osteoarthritis. There is mild to moder ate bilateral neural foraminal stenosis. There is mild central canal stenosis. C5-C6: Disc space is fused. There is mild bilateral facet joint osteoarthritis developing fusion on t he right.. There is mild bilateral neural foraminal stenosis. There is mild central canal stenosis. C6-C7: Disc space is fused. There is mild left and moderate right facet joint osteoarthritis. There i s mild right and moderate left neural foraminal stenosis. There is mild central canal stenosis. C7-T1: Disc is mildly bulging. There is mild bilateral uncovertebral joint osteoarthritis. There is m oderate right and severe left facet joint osteoarthritis. There is mild bilateral, left greater than right neural foraminal stenosis. There is mild central canal stenosis. IMPRESSION: 1. Moderate to severe cervical spondylosis with instrumented C5-C7 anterior spinal fusion. Reviewed, dictated and finalized at location A. IMPRESSION: 1. Moderate to severe cervical spondylosis with instrumented C5-C7 anterior spi nal fusion.
--- NOTE | ~2019-09-23 | XR_ITS ---
EXAMINATION: XR forearm RT 2V DATE: 09/23/2019 13:48 INDICATION: Right forearm injury. TECHNIQUE: 2 views of right forearm were obtained. COMPARISON: Right wrist radiographs 03/29/2019 FINDINGS: There is an old healed fracture deformity of distal radius. There is an old healed fracture deformity of ulnar styloid. No acute fracture. Osteopenia is noted. There is mild osteoarthritis of first carpometacarpal joint. No elbow joint effusion. IMPRESSION: 1. No acute fracture. Reviewed, dictated and finalized at location A. IMPRESSION: 1. No acute fracture.
--- NOTE | ~2019-09-23 | XR_ITS ---
EXAMINATION: XR shoulder RT min 2V DATE: 09/23/2019 13:48 INDICATION: Right shoulder injury. TECHNIQUE: 4 views of right shoulder were obtained. COMPARISON: None. FINDINGS: Bone alignment is normal. No fracture. There is severe osteoarthritis of glenohumeral joint and acromioclavicular joint. There are changes of anterior fusion procedure in cervical spine. IMPRESSION: 1. Polyarticular osteoarthritis. Reviewed, dictated and finalized at location A.
--- NOTE | ~2019-09-23 | XR_ITS ---
EXAMINATION: XR hip RT min 3V w AP pelvis INDICATION: Right hip pain TECHNIQUE: AP view of the pelvis and three views of the right hip are obtained. COMPARISON: None available FINDINGS: Bone alignment is normal. There is no fracture. Moderate bilateral hip osteoarthritis is no rachael. There is severe lumbar spondylosis. The soft tissues are unremarkable. IMPRESSION: 1. No acute osseous abnormality. Reviewed, dictated and finalized at location A.
--- NOTE | ~2019-09-23 | XR_ITS ---
EXAMINATION: XR foot RT min 3V DATE: 09/23/2019 13:48 INDICATION: Right foot pain, initial encounter TECHNIQUE: Dorsoplantar, lateral, and 2 oblique views of the right foot were obtained. COMPARISON: 07/05/2019 FINDINGS: There are fractures at the bases of the second, third, and fourth proximal phalanges. Widen ing of the fifth metatarsophalangeal joint and resection of the head of the fifth metatarsal are agai n noted and unchanged. There is osteoarthritis in the midfoot. The bones are osteopenic. IMPRESSION: 1. Fractures at the bases of the second, third, and fourth proximal phalanges. Reviewed, dictated and finalized at location A.
--- NOTE | ~2019-09-23 | XR_ITS ---
EXAMINATION: XR chest 1V INDICATION: Pain after fall TECHNIQUE: AP view of the chest is obtained. COMPARISON: 05/31/2019 FINDINGS: There is stable cardiomegaly. Lungs are free of acute opacities. No pleural effusion or pne umothorax is identified. A calcified nodule of the left upper lobe is consistent with old granulomato us disease. Changes of lower cervical spinal fusion are noted. IMPRESSION: 1. Stable cardiomegaly. Reviewed, dictated and finalized at location A. IMPRESSION: 1. Stable cardiomegaly.
[2019-09-23 12:09] VITALS: BP 151/56; PULSE 62; RESP 18; TEMP 36.8; O2SAT 98
--- NOTE | 2019-09-23 12:21 | ECG_ITS ---
Measurements Intervals [place] Rate: 53 P: 16 NM: 151 QRS: -48 QRSD: 118 T: -28 QT: 453 QTc: 426 Interpretive Statements SINUS BRADYCARDIA ATRIAL AND VENTRICULAR PREMATURE COMPLEXES POSSIBLE LEFT ATRIAL ENLARGEMENT INCOMPLETE RIGHT BUNDLE BRANCH BLOCK LOW QRS VOLTAGE IN PRECORDIAL LEADS LEFT ANTERIOR FASCICULAR BLOCK POOR R WAVE PROGRESSION, CONSIDER ANTEROLATERAL INFARCT BASELINE ARTIFACT- I, II, V1 ABNORMAL ECG Electronically Signed On 09-23-2019 14:16:18 CDT by Andrew Dunbar D.O.
[2019-09-23 12:47] LABS: Basophils Absolute Auto 0.1 K/mm3 (0.0-0.1); Basophils Percent Auto 0.8 % (0.2-1.2); Eosinophils Absolute Auto 0.3 K/mm3 (0-0.3); Eosinophils Percent Auto 3.1 % (0-4.4); Hematocrit 38.7 % (37.0-47.0); Hemoglobin 12.7 g/dL (12.0-15.0); Immature Granulocyte Absolute 0.05 K/mm3 (0.00-0.031); Immature Granulocyte Percent A 0.5 % (0-0.5); Lymphocytes Absolute Auto 2.87 K/mm3 (0.9-3.2); Lymphocytes Percent Auto 28.1 % (18.3-44.2); Mean Corpuscular HGB Conc 32.8 g/dl (32-36); Mean Corpuscular Hemoglobin 32.4 pg (26-34); Mean Corpuscular Volume 98.7 fl (80-100); Mean Platelet Volume 10.1 fl (7.4-10.4); Monocytes Absolute Auto 0.7 K/mm3 (0.1-0.6); Monocytes Percent Auto 7.1 % (2.6-8.5); Neutrophils Absolute Auto 6.2 K/mm3 (1.3-6.7); Neutrophils Percent Auto 60.4 % (45.5-73.1); Platelet Count Result 264 k/mm3 (150-375); Red Blood Count 3.92 M/mm3 (4.2-5.4); Red Cell Distribution Width 14.8 % (11.5-14.5); White Blood Count 10.2 K/mm3 (4.5-10.0)
[2019-09-23] MEDS: SODIUM CHLORIDE 0.9% IV 500 ML 999 ML IV CONT (12:48)
[2019-09-23 12:49] VITALS: BP 124/68; PULSE 68; RESP 16; O2SAT 98
--- NOTE | 2019-09-23 12:57 | ED.GENADULT ---
HPI - General Adult General Chief complaint: Fall <Anam RameyPORTER - Last Filed: 09/23/19 15:27> Stated complaint: fall <Anam Ramey PORTER Luciana Last Filed: 09/23/19 15:27> Source: patient <Anam Ramey PORTER Luciana Last Filed: 09/23/19 15:27> Mode of arrival: ambulatory <Anam Ramey PORTER - Last Filed: 09/23/19 15:27> Limitations: no limitations <Anam Ramey PORTER Luciana Last Filed: 09/23/19 15:27> History of Present Illness HPI narrative: Patient is a 69-year-old female who presents to emergency department for evaluation of injuries related to a ground-level fall that occurred this morning patient notes that her knee gave out to her causing her to fall to the ground injuring the right foot as well as the right arm. Patient lives at home by herself notes frequent falls. Patient notes moderate aching pain to the right upper arm which has had weakness over the last month with inability to use the hand secondary to motor weakness. Patient also notes weakness in the right leg which is also been present during this time. Patient had recent hospitalization and evaluation at this right-sided extremity weakness with no etiology. Followed by primary care and orthopedic surgery and cardiology. Patient is currently on Brilinta. <Anam Ramey ROMINALucianaHeidi Luciana Last Filed: 09/23/19 15:27> Related Data Home medications: Home Medications Medication Instructions Recorded Confirmed Adult Low Dose Aspirin 81 mg PO DAILY 05/31/19 05/31/19 Brilinta 90 mg PO BID 05/31/19 05/31/19 allopurinol 100 mg PO DAILY 05/31/19 05/31/19 atorvastatin 40 mg PO DAILY 05/31/19 05/31/19 sudkfrk-fgbftydrqx-YHH-caff 1 cap PO DAILY PRN 05/31/19 05/31/19 [Butalbital Compound W/Codeine] ergocalciferol (vitamin D2) 1,250 unit PO WEEKLY 05/31/19 05/31/19 furosemide 40 mg PO DAILY 05/31/19 05/31/19 hyoscyamine sulfate 0.125 mg PO BID 05/31/19 05/31/19 isosorbide mononitrate 60 mg PO DAILY 05/31/19 05/31/19 lisinopril 5 mg PO DAILY 05/31/19 05/31/19 meclizine 12.5 mg PO Q6H PRN 05/31/19 05/31/19 metoprolol tartrate 200 mg PO BID 05/31/19 05/31/19 nitroglycerin [Nitrostat] 0.6 mg SUBLINGUAL Q5M PRN 05/31/19 05/31/19 omalizumab 150 mg SUBCUT MONTHLY 05/31/19 05/31/19 potassium chloride 10 meq PO DAILY 05/31/19 05/31/19 gabapentin 300 mg PO TID 09/23/19 <Anam Ramey PA-C - Last Filed: 09/23/19 15:27> Allergies/adverse reactions: Allergies Allergy/AdvReac Type Severity Reaction Status Date / Time adhesive tape Allergy Unknown Hives / Verified 09/23/19 12:12 Red Face Penicillins Allergy Unknown Unknown Verified 09/23/19 12:12 <Anam Ramey PA-C - Last Filed: 09/23/19 15:27> Review of Systems Review of Systems: All systems reviewed & are unremarkable except as noted in HPI and below <Anam Ramey PA-C - Last Filed: 09/23/19 15:27> [facility] Past Medical History Medical History: Medical History A-fib CAD (coronary artery disease) Cataracts, bilateral CHF (congestive heart failure) Closed right ankle fracture Colitis Diverticulitis DVT (deep venous thrombosis) Endometriosis Fracture of great toe GERD (gastroesophageal reflux disease) History of angina Hyperlipidemia Hypertension Internal hemorrhoid Left wrist fracture Lupus Myocardial infarction x4, 1996, 1997, 2004, 2017 Nasal sinus polyp Osteoarthritis Peripheral neuropathy Rectal polyp UTI (urinary tract infection) <Anam Ramey PA-C - Last Filed: 09/23/19 15:27> Surgical History Surgical History: Surgical History H/O cardiac catheterization History of hysterectomy Hx of appendectomy Hx of cataract removal with insertion of prosthetic lens Hx of cholecystectomy Hx of fusion of cervical spine Hx of tonsillectomy <Anam Ramey PA-C - Last Filed: 09/23/19 15:27> Family History Family H
[2019-09-23 13:01] LABS: Blood Urea Nitrogen 9 mg/dL (7-17); Calcium 8.9 mg/dL (8.4-10.2); Carbon Dioxide 23 mmol/L (22-30); Chloride 106 mmol/L (98-107); Estimated CRCL calculation 81 ml/min; Estimated Glomerular Filt Rate > 60; Glucose 112 mg/dL (65-105); Potassium 4.2 mmol/L (3.4-5.0); Prothrombin Time 13.2 Seconds (11.1-14.7); Sodium 137 mmol/L (137-145)
[2019-09-23 13:12] LABS: Troponin I < 0.012 ng/mL (0.000-0.034)
[2019-09-23 14:14] VITALS: BP 141/74; PULSE 58; RESP 16; O2SAT 98
[2019-09-23 14:22] LABS: Add Urine Microscopic? NO; Appearance Urine Clear (Clear); Bilirubin Urine Negative (Negative); Blood Urine Negative (Negative); Color Urine Yellow (Yellow); Glucose Urine UA Negative (Negative); Ketones Urine Negative (Negative); Leukocyte Esterase Ur Negative LEU/UL (Negative); Nitrate Urine Negative (Negative); Protein Urine Negative (Negative); Specific Grav Ur 1.014 (1.001-1.035); Urobilinogen Urine Negative mg/dL (<2.0)
--- NOTE | 2019-09-23 16:52 | PC.NURSE ---
This patient, Jody Ingram, was admitted to Medical Room 344-01. Patient/family oriented to hospital policies and general routines including ID bracelet, bed and alarms, visiting hours, pain management, procedures, bathroom and other care routines, personal items, smoking policy, room service/diet, and visiting hours. Valuables list has been completed. Information on how to activate the Rapid Response Team has been discussed. Patient/Family are encouraged to report perceived risks to care and to ask questions if they do not understand what they are told or what they should do.
[2019-09-23 17:00] VITALS: BMI 31.1
[2019-09-23] MEDS: LACTATED RINGERS 1,000 ML 80 ML IV CONT (17:16)
[2019-09-23 18:17] VITALS: PULSE 64
[2019-09-23 20:00] VITALS: PULSE 66
[2019-09-23] MEDS: FAMOTIDINE 20 MG/2 ML VIAL IV PUSH (20:10)
[2019-09-23] MEDS: KETOROLAC 15 MG/ML VIAL (*BKC) IV PUSH (20:36)
[2019-09-23 22:00] VITALS: BP 96/72; PULSE 72; RESP 14; TEMP 36.3; O2SAT 97
--- NOTE | 2019-09-23 23:46 | PM.IMHP ---
H&P: HPI History of Present Illness Chief complaint: Frequent falls/closed fracture right foot/bradycar Narrative: Jody Ingram is a 69 year old female who has had multiple falls in the last couple years. The patient stated she just got out of rehab and is doing physical therapy a her own home. The patient stated that her knees tend to buckle from underneath of her and she uses a walker and a wheelchair. The patient stated that she had a ground level fall last night. Her knees gave out causing her to fall on the floor in her living room which is carpeted. She lives on her own and has frequent falls. Patient was complaining of right upper arm pain which is chronic. She also was complaining of right foot pain. Patient has a history of longstanding atrial fibrillation but is now in sinus rhythm. She is on Brilinta. She denies hitting her head. CT of the head shows no acute intracranial abnormality. Right ankle x-ray was read as no acute osseous abnormality per Radiology. X-ray was read per Radiology as fractures at the bases of the 2nd 3rd and 4th proximal phalanges. Hip and pelvis x-ray was read as no acute osseous abnormality per Radiology. Chest x-ray was read as stable cardiomegaly. Forearm x-ray was read as no acute fracture. Shoulder x-ray was read as poly articular osteoarthritis. Lumbar spine CT was read as severe lumbar spondylosis. The patient was given IV fluids, IV Tylenol, Valium, Perry, and I gave her Toradol. The patient is still complaining of severe discomfort. To her right arm and right foot. Patient stated that she is allergic to hydrocodone but tolerated the Perry without any difficulty in the emergency room. Patient refuses to take any further Perry. She states that IV Tylenol and Ultram does nothing her. She has severe neuropathy and is requesting her gabapentin. Last blood pressure 96/72. Date of service 09/23/2019 Review of Systems Review of Systems: All systems reviewed & are unremarkable except as noted in HPI and below Constitutional: Constitutional: Reports as per HPI and Reports no additional constitutional complaints Eyes: Eyes: Reports as per HPI and Reports no additional eye complaints ENT: Reports system reviewed and no additional complaints, except as documented and Reports Normal hearing present Cardiovascular: Cardiovascular: Reports no additional cardiovascular complaints Respiratory: Respiratory: Reports no additional respiratory complaints and Reports no additional respiratory complaints Gastrointestinal: Gastrointestinal: Reports as per HPI and Reports no additional gastrointestinal complaints Musculoskeletal: Musculoskeletal: Reports no additional musculoskeletal complaints Integumentary/Breasts: Skin/Breast: Reports system reviewed and no additional complaints, except as docu and Reports as per HPI Neurologic: Reports system reviewed and no additional complaints, except as documented, Reports as per HPI and Reports Normal hearing present Psychiatric: Psychiatric: Reports no additional psychiatric complaints and Reports as per HPI Endocrine: Endocrine: Reports no additional endocrine complaints Hematologic/Lymphatic: Hematologic/Lymphatic: Reports no additional hematologic/lymphatic complaints Allergic/Immunologic: Allergic/Immunologic: Reports no additional allergic/immunologic complaints [facility] Past Medical History Medical History (Updated 09/24/19 @ 00:10 by Lisa Ortiz NP) A-fib Paroxysmal CAD (coronary artery disease) Cataracts, bilateral CHF (congestive heart failure) Closed right ankle fracture Colitis Diverticulitis DVT (deep venous thrombosis) X2 to lower extremities Endometriosis Fracture of great toe GERD (gastroesophageal reflux disease) History of angina Hyperlipidemia Hypertension Internal hemorrhoid Irritable bowel syndrome Mixed Left wrist fracture And right wrist. No surgical procedure Lupus Migraines Myocardial infarction x4, 1996, 1997,
[2019-09-24] VITALS (12 sets, daily range): BP systolic 96–149; BP diastolic 51–82; PULSE 51–77; RESP 16–17; TEMP 35.7–36.4; O2SAT 96–99
[2019-09-24] MEDS: GABAPENTIN 300 MG CAPSULE PO ×4 (00:18→17:44)
[2019-09-24] MEDS: TICAGRELOR 90 MG TABLET PO ×3 (00:18→17:44)
--- NOTE | 2019-09-24 02:23 | ECG_ITS ---
Measurements Intervals [place] Rate: 81 P: 73 VT: 149 QRS: -49 QRSD: 126 T: -16 QT: 410 QTc: 476 Interpretive Statements SINUS RHYTHM ATRIAL AND VENTRICULAR PREMATURE COMPLEXES RIGHT BUNDLE BRANCH BLOCK LEFT ANTERIOR FASCICULAR BLOCK BASELINE ARTIFACT- I, II, III ABNORMAL ECG Electronically Signed On 09-24-2019 6:55:02 CDT by Andrew Dunbar D.O.
[2019-09-24] MEDS: NITROGLYCERIN SL 0.4 MG TABLET (02:33)
--- NOTE | 2019-09-24 02:41 | PC.NURSE ---
Pt complaining about how labs cannot be drawn out of her left arm. IV in the middle of wrist and too close for accurate troponin levels to be drawn. Pt aggravated and being verbally aggressive towards laboratory. Discussed with pt that she has the right to refuse labs if she does not wish to have them, and pt refused.
[2019-09-24] MEDS: ONDANSETRON INJ 4 MG/2 ML VIAL IV PUSH (03:04)
[2019-09-24] MEDS: MORPHINE SULFATE 4 MG/ML INJ IV PUSH ×4 (03:20→22:13)
[2019-09-24 04:09] LABS: Hematocrit 35.6 % (37.0-47.0); Hemoglobin 11.5 g/dL (12.0-15.0); Mean Corpuscular HGB Conc 32.3 g/dl (32-36); Mean Corpuscular Hemoglobin 31.9 pg (26-34); Mean Corpuscular Volume 98.9 fl (80-100); Mean Platelet Volume 10.1 fl (7.4-10.4); Platelet Count Result 224 k/mm3 (150-375); Red Cell Distribution Width 14.7 % (11.5-14.5); White Blood Count 8.7 K/mm3 (4.5-10.0)
[2019-09-24 04:21] LABS: Blood Urea Nitrogen 9 mg/dL (7-17); Calcium 8.6 mg/dL (8.4-10.2); Carbon Dioxide 26 mmol/L (22-30); Chloride 106 mmol/L (98-107); Estimated CRCL calculation 81 ml/min; Estimated Glomerular Filt Rate > 60; Glucose 116 mg/dL (65-105); Potassium 3.7 mmol/L (3.4-5.0); Sodium 136 mmol/L (137-145)
[2019-09-24 04:32] LABS: Troponin I < 0.012 ng/mL (0.000-0.034)
[2019-09-24] MEDS: LACTATED RINGERS 1,000 ML 80 ML IV CONT (06:19)
[2019-09-24] MEDS: METOPROLOL TARTRATE 50 MG TAB 200 MG PO ×2 (09:21→17:55)
[2019-09-24] MEDS: ATORVASTATIN 40 MG TABLET PO (09:22)
[2019-09-24] MEDS: ASPIRIN 81 MG CHEWABLE TABLET PO (09:22)
[2019-09-24] MEDS: POTASSIUM CHLORIDE 10 MEQ TABLET.ER PO (09:22)
[2019-09-24] MEDS: ISOSORBIDE MONONITRATE 60 MG TAB.ER.24H PO (09:22)
[2019-09-24] MEDS: allopurinoL 100 MG TABLET PO (09:22)
[2019-09-24] MEDS: FUROSEMIDE 40 MG TABLET PO (09:23)
[2019-09-24] MEDS: HYOSCYAMINE SULFATE 0.125 MG TABLET PO ×2 (09:23→17:44)
[2019-09-24] MEDS: lisinopriL 5 MG TABLET PO (09:23)
[2019-09-24] MEDS: FAMOTIDINE 20 MG/2 ML VIAL IV PUSH ×2 (09:23→22:16)
--- NOTE | 2019-09-24 13:48 | ECG_ITS ---
Measurements Intervals [place] Rate: 53 P: 68 IL: 153 QRS: -45 QRSD: 116 T: -8 QT: 448 QTc: 422 Interpretive Statements SINUS BRADYCARDIA ATRIAL PREMATURE COMPLEX INCOMPLETE RIGHT BUNDLE BRANCH BLOCK LEFT ANTERIOR FASCICULAR BLOCK BORDERLINE ST-T WAVE ABNORMALITY- DIFFUSE LEADS BASELINE ARTIFACT- I, II, AVR, AVL ABNORMAL ECG Electronically Signed On 09-24-2019 15:23:34 CDT by Andrew Dunbar D.O.
--- NOTE | 2019-09-24 13:49 | PM.IMPN ---
Progress Note: A&P Assessment and Plan (1) Fracture of phalanx of multiple toes of right foot: Code(s): S92.911A - Unspecified fracture of right toe(s), initial encounter for closed fracture Status: Acute Assessment and Plan: The patient sustained a fall due to chronic right sided weakness since May 2019 and suffered fractures of the right second, third, and fourth proximal phalanges of the right foot. She has a walking boot on. Continue analgesics PRN. (2) CAD (coronary artery disease): Qualifiers: Associated angina: with stable angina Coronary Disease-Associated Artery/Lesion type: [place] artery [place] vs. transplanted heart: [place] heart Qualified Code(s): I25.118 - Atherosclerotic heart disease of [place] coronary artery with other forms of angina pectoris Code(s): I25.10 - Atherosclerotic heart disease of [place] coronary artery without angina pectoris Status: Chronic Assessment and Plan: The patient has a hx of CAD with four prior MIs. She has multiple stents. Her primary wafer fabricator is Dr. Jimenez and she underwent a cardiac catheterization 06/15/2018 which revealed two-vessel disease with chronic total occlusion of the RCA and high grade stenosis of OM1. She reported an episode of chest pain overnight which she reports was relieved with nitro. STAT EKG and troponin were negative. Repeat EKG and troponin today were negative. I have consulted cardiology as she reports that she is having angina once weekly. She did not see Dr. Jimenez as scheduled in May as she was hospitalized at [facility]. Plan to continue metoprolol, sublingual nitroglycerin PRN, and isosorbide mononitrate. Continue brilinta. Continue ASA. Continue atorvastatin. Continue telemetry. Monitor closely for recurrent symptoms. (3) Falls frequently: Code(s): R29.6 - Repeated falls Status: Acute Assessment and Plan: She reports a hx of frequent falls. She was in acute rehab following her hospitalization at [facility] for her right sided weakness in May 2019 and reports that she still feels week and is unsure if she can care for herself at home. She currently has an aid at home. PT/OT have been consulted for further recommendations which are greatly appreciated. She likely has a component of deconditioning. I discussed this at length with the patient and expressed that I feel she would benefit from post-acute placement to continue PT/OT. Care coordination is on board. She has expressed that she will consider post-acute placement. (4) Gait instability: Code(s): R26.81 - Unsteadiness on feet Status: Acute Assessment and Plan: As above. (5) CHF (congestive heart failure): Qualifiers: Heart failure chronicity: chronic Heart failure type: diastolic Qualified Code(s): I50.32 - Chronic diastolic (congestive) heart failure Code(s): I50.9 - Heart failure, unspecified Status: Chronic Assessment and Plan: Clinically compensated. She appears euvolemic. She has a hx of grade 1 diastolic dysfunction. Continue furosemide. (6) A-fib: Qualifiers: Atrial fibrillation type: paroxysmal Qualified Code(s): I48.0 - Paroxysmal atrial fibrillation Code(s): I48.91 - Unspecified atrial fibrillation Status: Chronic Assessment and Plan: Chronic. She is in sinus bradycardia on review of telemetry. Continue metoprolol. Her average heart rate is in the 50s-lower 60s. Will discuss metoprolol dosing with cardiology but I suspect that she is on this dose due to her CAD. She is not on anticoaglation but is on on brilinta. (7) Lupus: Code(s): M32.9 - Systemic lupus erythematosus, unspecified Status: Chronic Assessment and Plan: Stable. Continue prior to admission medications. She is on an injectable therapy once monthly. She follows with Dr. Mackay at [facility]. Continue gabapentin. (8) Gen
[2019-09-24] MEDS: LORAZEPAM INJ 2 MG/ML VIAL 0.5 MG IV PUSH (15:17)
[2019-09-24 15:37] LABS: Troponin I < 0.012 ng/mL (0.000-0.034)
[2019-09-25] VITALS (11 sets, daily range): BP systolic 117–139; BP diastolic 57–58; PULSE 42–77; RESP 14–20; TEMP 36–36.1; O2SAT 94–100
--- NOTE | 2019-09-25 02:28 | PC.NURSE ---
Pt calls requesting nitroglycerin. Patient describes the feeling of a fluttering heart states that there isn't any pain. Pt displaying no signs of distress at this time. VS: 97.2 - 130/57 - 49 - 18 - 99. Notified.
--- NOTE | 2019-09-25 02:37 | PC.NURSE ---
Per MD nitroglycerin was not administered based on assessment. When patient was made aware and educated on the need/use of medication, patient stated that she will bring her own from now on and not inform staff of use.
[2019-09-25 06:46] LABS: Hemoglobin A1C 5.5 % (<5.7)
[2019-09-25 06:55] LABS: Cholesterol 117 mg/dL (0-200); HDL Direct 24 mg/dL; Triglycerides 140 mg/dL (<150)
[2019-09-25 07:06] LABS: LDL Cholesterol Direct 58 mg/dL
[2019-09-25 07:42] LABS: Thyroid Stimulating Hormone Reflex 0.542 uIU/mL (0.465-4.68)
[2019-09-25 09:04] LABS: Hematocrit 39.6 % (37.0-47.0); Hemoglobin 12.7 g/dL (12.0-15.0); Mean Corpuscular HGB Conc 32.1 g/dl (32-36); Mean Corpuscular Hemoglobin 32.3 pg (26-34); Mean Corpuscular Volume 100.8 fl (80-100); Mean Platelet Volume 10.5 fl (7.4-10.4); Platelet Count Result 221 k/mm3 (150-375); Red Blood Count 3.93 M/mm3 (4.2-5.4); Red Cell Distribution Width 14.9 % (11.5-14.5); White Blood Count 10.7 K/mm3 (4.5-10.0)
[2019-09-25] MEDS: FAMOTIDINE 20 MG/2 ML VIAL IV PUSH ×2 (09:08→20:59)
[2019-09-25] MEDS: GABAPENTIN 300 MG CAPSULE PO ×3 (09:08→16:51)
[2019-09-25] MEDS: ATORVASTATIN 40 MG TABLET PO (09:08)
[2019-09-25] MEDS: TICAGRELOR 90 MG TABLET PO ×2 (09:09→16:51)
[2019-09-25] MEDS: ISOSORBIDE MONONITRATE 60 MG TAB.ER.24H PO (09:09)
[2019-09-25] MEDS: ASPIRIN 81 MG CHEWABLE TABLET PO (09:09)
[2019-09-25] MEDS: MECLIZINE HCL 12.5 MG TABLET PO (09:09)
[2019-09-25] MEDS: allopurinoL 100 MG TABLET PO (09:10)
[2019-09-25] MEDS: POTASSIUM CHLORIDE 10 MEQ TABLET.ER PO (09:11)
[2019-09-25] MEDS: FUROSEMIDE 40 MG TABLET PO (09:11)
[2019-09-25] MEDS: lisinopriL 5 MG TABLET PO (09:12)
[2019-09-25] MEDS: HYOSCYAMINE SULFATE 0.125 MG TABLET PO ×2 (09:13→16:52)
[2019-09-25] MEDS: CODEINE SULFATE 30 MG TABLET PO ×2 (09:14→16:50)
[2019-09-25 10:00] LABS: Blood Urea Nitrogen 10 mg/dL (7-17); Calcium 8.8 mg/dL (8.4-10.2); Carbon Dioxide 25 mmol/L (22-30); Chloride 105 mmol/L (98-107); Estimated CRCL calculation 81 ml/min; Estimated Glomerular Filt Rate > 60; Glucose 120 mg/dL (65-105); Magnesium 1.8 mg/dL (1.6-2.3); Potassium 4.9 mmol/L (3.4-5.0); Sodium 136 mmol/L (137-145)
--- NOTE | 2019-09-25 11:16 | PM.IMPN ---
Progress Note: A&P Assessment and Plan (1) Fracture of phalanx of multiple toes of right foot: Code(s): S92.911A - Unspecified fracture of right toe(s), initial encounter for closed fracture Status: Acute Assessment and Plan: The patient sustained a fall due to chronic right sided weakness since May 2019 and suffered fractures of the right second, third, and fourth proximal phalanges of the right foot. She has a walking boot on. Continue analgesics PRN. (2) Right sided weakness: Code(s): R53.1 - Weakness Status: Acute Assessment and Plan: She reports chronic right upper extremity and right lower extremity weakness and pain since May 2019. She reports that she has undergone an extensive workup per neurology and rheumotology but the etiology is unclear. CT brain and MRI revealed no evidence of acute infarction and unchanged small old lacunar infarcts at the head of the right caudate nucleus and anterior limb of the right internal capsule with mild scattered periventricular predominant white matter T2 hyperintensity which is within normal limits for age and likely sequela of chronic small vessel ischemic disease. She may have a component of complex regional pain syndrome in the RUE as she reports pain after her right wrist fracture 03/2019. She may has severe lumbar spondylosis on CT lumbar spine. She may also have cervical spondylosis contributing. Prior neurology records were requested but we have not received them. Discussed with Dr. Mcintyre who will see the patient in consultation. (3) CAD (coronary artery disease): Qualifiers: Associated angina: with stable angina Coronary Disease-Associated Artery/Lesion type: [place] artery [place] vs. transplanted heart: [place] heart Qualified Code(s): I25.118 - Atherosclerotic heart disease of [place] coronary artery with other forms of angina pectoris Code(s): I25.10 - Atherosclerotic heart disease of [place] coronary artery without angina pectoris Status: Chronic Assessment and Plan: The patient has a hx of CAD with four prior MIs. She has multiple stents. Her primary steward/stewardess economy class is Dr. Jimenez and she underwent a cardiac catheterization 06/15/2018 which revealed two-vessel disease with chronic total occlusion of the RCA and high grade stenosis of OM1. She reported an episode of chest pain the night of 09/23/19 which she reports was relieved with nitro. STAT EKG and troponin were negative. Repeat EKG and troponin today were negative. I have consulted cardiology as she reports that she is having angina once weekly. She did not see Dr. Jimenez as scheduled in May as she was hospitalized at [facility]. Plan to continue metoprolol, sublingual nitroglycerin PRN, and isosorbide mononitrate. Continue brilinta. Continue ASA. Continue atorvastatin. Continue telemetry. Monitor closely for recurrent symptoms. (4) Falls frequently: Code(s): R29.6 - Repeated falls Status: Acute Assessment and Plan: She reports a hx of frequent falls. She was in acute rehab following her hospitalization at [facility] for her right sided weakness in May 2019 and reports that she still feels week and is unsure if she can care for herself at home. She currently has an aid at home. PT/OT have been consulted for further recommendations which are greatly appreciated. She likely has a component of deconditioning. I discussed this at length with the patient and expressed that I feel she would benefit from post-acute placement to continue PT/OT. Care coordination is on board. She has expressed that she will consider post-acute placement. Referrals were placed and the patient will discuss options with care coordination today. (5) Gait instability: Code(s): R26.81 - Unsteadiness on feet Status: Acute Assessment and Plan: As above. (6) CHF (congestive heart failure): Qualifiers: Heart failure chron
--- NOTE | 2019-09-25 11:45 | PCOTNOTE ---
Patient refused treatment this session due to great deal of pain and exhaustion. Will continue with plan of care as written.
--- NOTE | 2019-09-25 13:14 | PM.CNCAR ---
Assessment and Plan Additional Plan Sinus bradycardia, asymptomatic, PACs and PVcs followed by short pauses that read by Tele as HR in low 40s, She had atypical chest pain that is part of non specific pain syndrome, trop negative and no dynamic EKG changes, plan Cont Ticagrelor, Statin, Lasix, imdur, lisinopril and metoprolol, no further cardiac work up needed and f/u with cardiology in clinic History of Present Illness History of Present Illness Consult date/time: 09/25/19 13:14 Consult reason: chest pain Reason For Visit: Frequent falls/closed fracture right foot/bradycar Narrative: Patient presented after mechanical fall while moving inside house, her leg gave out and fell and couldn't get up or walk and found to have foot fracture. She has no HX of dizziness or syncope. She had recurrent falll last 2 years. She had rt side weakness and sever pain in rt side of body. Pain in chest is sharp and mainly rt side. She asks for morphine for pain releive. She was noted to have bradycardia on Tele but asymptomatic and Tele showed PACs and PVCs and HR is down to 45 and likely under-estimate HR, She had Hx of paroxysmal AF. Review of Systems Review of Systems: All systems reviewed & are unremarkable except as noted in HPI and below PMFSH Past Medical History Medical History (Updated 09/24/19 @ 22:25 by Arianna Coyle PA-C) A-fib Paroxysmal CAD (coronary artery disease) Cataracts, bilateral CHF (congestive heart failure) Closed right ankle fracture Colitis Diverticulitis DVT (deep venous thrombosis) X2 to lower extremities Endometriosis Fracture of great toe GERD (gastroesophageal reflux disease) History of angina Hyperlipidemia Hypertension Internal hemorrhoid Irritable bowel syndrome Mixed Left wrist fracture And right wrist. No surgical procedure Lupus Migraines Myocardial infarction x4, 1997, 1998, 2005, 2017 Nasal sinus polyp Osteoarthritis Peripheral neuropathy Rectal polyp UTI (urinary tract infection) VF (ventricular fibrillation) Surgical History Surgical History (Updated 09/24/19 @ 00:00 by Lisa Ortiz NP) H/O cardiac catheterization She stated that she has multiple stents. History of heart artery stent Patient stated that she has multiple stents History of hysterectomy Hx of appendectomy Hx of cataract removal with insertion of prosthetic lens Hx of cholecystectomy Hx of fusion of cervical spine Hx of tonsillectomy Social History Social History (Updated 09/24/19 @ 00:01 by Lisa Ortiz NP) Social History: Ms. Ingram lives at home alone in [place]. She reports alcohol use rarely, on holidays. She reports smoking more cigarettes when she is in pain but does not normally smoke daily. She reports smoking around 10 cigarettes over the weekend and has been smoking on and off for 50 years. Denies substance use. Her PCP is Dr Andrea Makcay at [facility]. We discussed code status and she wishes to make her code status Do Not intubate but will allow CPR, medication, and defibrillation. She has no children. She is retired contract paralegal. Smoking packs per day: 1.5 Smoking cigarettes per day: 30.0 Years smoked: 50 Smoking pack-years: 75.00 Smoking status: Current every day smoker Tobacco type: cigarettes Second hand tobacco smoke exposure: Yes Smoking end date: 04/07/16 Alcohol intake: former Substance use: never Gender identity (if verbalized by the patient): Female Spiritual care concerns: No Agree to blood products: Yes Meds Home Medications and Allergies Home Medications Medication Instructions Recorded Confirmed Type Adult Low Dose Aspirin 81 mg PO DAILY 05/31/19 09/23/19 History Brilinta 90 mg PO BID 05/31/19 09/23/19 History allopurinol 100 mg PO DAILY 05/31/19 09/23/19 History atorvastatin 40 mg PO DAILY 05/31/19 09/23/19 History [id number] 1 cap PO QID PRN 05/31/19 09/23/19 History [Butalbital Compound W/Codeine] ergoc
[2019-09-26] VITALS (10 sets, daily range): BP systolic 112–156; BP diastolic 58–81; PULSE 72–118; RESP 15–20; TEMP 35.7–36.7; O2SAT 96–97
--- NOTE | 2019-09-26 01:02 | PC.NURSE ---
Pt asking for home oxycodone. Pain control has been an ongoing issue during this admission. No oxycodone was on med rec but per pt request reviewed external pharmacy history. A prescription for oxycodone-acetaminophen was filled 09/15 and was a new prescription that the pt forgot about when being admitted and was not on home med list. Edited med rec and MD notified.
[2019-09-26 06:04] LABS: Basophils Absolute Auto 0.1 K/mm3 (0.0-0.1); Basophils Percent Auto 0.6 % (0.2-1.2); Eosinophils Absolute Auto 0.2 K/mm3 (0-0.3); Eosinophils Percent Auto 2.7 % (0-4.4); Hematocrit 34.1 % (37.0-47.0); Hemoglobin 11.3 g/dL (12.0-15.0); Immature Granulocyte Absolute 0.04 K/mm3 (0.00-0.031); Immature Granulocyte Percent A 0.5 % (0-0.5); Lymphocytes Absolute Auto 2.37 K/mm3 (0.9-3.2); Lymphocytes Percent Auto 26.8 % (18.3-44.2); Mean Corpuscular HGB Conc 33.1 g/dl (32-36); Mean Corpuscular Hemoglobin 32.2 pg (26-34); Mean Corpuscular Volume 97.2 fl (80-100); Mean Platelet Volume 9.9 fl (7.4-10.4); Monocytes Absolute Auto 0.7 K/mm3 (0.1-0.6); Monocytes Percent Auto 8.4 % (2.6-8.5); Neutrophils Absolute Auto 5.4 K/mm3 (1.3-6.7); Platelet Count Result 220 k/mm3 (150-375); Red Blood Count 3.51 M/mm3 (4.2-5.4); Red Cell Distribution Width 14.6 % (11.5-14.5); White Blood Count 8.8 K/mm3 (4.5-10.0)
[2019-09-26 06:47] LABS: Blood Urea Nitrogen 11 mg/dL (7-17); Calcium 8.8 mg/dL (8.4-10.2); Carbon Dioxide 27 mmol/L (22-30); Chloride 105 mmol/L (98-107); Estimated CRCL calculation 81 ml/min; Estimated Glomerular Filt Rate > 60; Glucose 113 mg/dL (65-105); Potassium 3.2 mmol/L (3.4-5.0); Sodium 138 mmol/L (137-145)
[2019-09-26] MEDS: POTASSIUM CHLORIDE 20 MEQ TABLET 40 MEQ PO (08:06)
[2019-09-26] MEDS: allopurinoL 100 MG TABLET PO (08:07)
[2019-09-26] MEDS: FAMOTIDINE 20 MG/2 ML VIAL IV PUSH ×2 (08:07→22:20)
[2019-09-26] MEDS: lisinopriL 5 MG TABLET PO (08:08)
[2019-09-26] MEDS: GABAPENTIN 300 MG CAPSULE PO ×3 (08:08→16:52)
[2019-09-26] MEDS: ISOSORBIDE MONONITRATE 60 MG TAB.ER.24H PO (08:08)
[2019-09-26] MEDS: ASPIRIN 81 MG CHEWABLE TABLET PO (08:08)
[2019-09-26] MEDS: TICAGRELOR 90 MG TABLET PO ×2 (08:09→16:53)
[2019-09-26] MEDS: HYOSCYAMINE SULFATE 0.125 MG TABLET PO ×2 (08:10→16:52)
[2019-09-26] MEDS: ATORVASTATIN 40 MG TABLET PO (08:10)
[2019-09-26] MEDS: FUROSEMIDE 40 MG TABLET PO (08:11)
--- NOTE | 2019-09-26 10:25 | PM.IMPN ---
Progress Note: A&P Assessment and Plan (1) Fracture of phalanx of multiple toes of right foot: Code(s): S92.911A - Unspecified fracture of right toe(s), initial encounter for closed fracture Status: Acute Assessment and Plan: The patient sustained a fall due to chronic right sided weakness and falls over the past year. She suffered fractures of the right second, third, and fourth proximal phalanges of the right foot. She has a walking boot on. Continue analgesics PRN. (2) Chronic pain: Qualifiers: Chronic pain type: other chronic postprocedural pain Qualified Code(s): G89.28 - Other chronic postprocedural pain Code(s): G89.29 - Other chronic pain Status: Acute Assessment and Plan: She reports chronic pain and is on oxycodone prior to admission. She is on gabapentin. Will begin cymbalta to see if this is of benefit. (3) Right sided weakness: Code(s): R53.1 - Weakness Status: Chronic Assessment and Plan: She reports chronic right upper extremity and right lower extremity weakness and pain. She reports that her weakness worsened 07/05/19 and was transferred to [facility] per her electron microscopist Dr. Mackay and saw neurology at that time but the etiology for her weakness is unclear at this time. Records were requested. CT brain and MRI revealed no evidence of acute infarction and unchanged small old lacunar infarcts at the head of the right caudate nucleus and anterior limb of the right internal capsule with mild scattered periventricular predominant white matter T2 hyperintensity which is within normal limits for age and likely sequela of chronic small vessel ischemic disease. She is on ASA and statin. She may have a component of complex regional pain syndrome in the RUE as she reports pain after her right wrist fracture 03/2019. She has severe lumbar spondylosis on CT lumbar spine. She may also have cervical spondylosis contributing. Prior neurology records were requested but we have not received them. Discussed with Dr. Mcintyre who will see the patient in consultation and discussed imaging of the cervical spine. Plan to await further recommendations after he sees the patient. (4) CAD (coronary artery disease): Qualifiers: Associated angina: with stable angina Coronary Disease-Associated Artery/Lesion type: [place] artery [place] vs. transplanted heart: [place] heart Qualified Code(s): I25.118 - Atherosclerotic heart disease of [place] coronary artery with other forms of angina pectoris Code(s): I25.10 - Atherosclerotic heart disease of [place] coronary artery without angina pectoris Status: Chronic Assessment and Plan: The patient has a hx of CAD with four prior MIs. She has multiple stents. Her primary card grinder is Dr. Jimenez and she underwent a cardiac catheterization 06/15/2018 which revealed two-vessel disease with chronic total occlusion of the RCA and high grade stenosis of OM1. She reported an episode of chest pain overnight which she reports was relieved with nitro. STAT EKG and troponin were negative. Repeat EKG and troponin today were negative. I have consulted cardiology as she reports that she is having angina once weekly. She did not see Dr. Jimenez as scheduled in May as she was hospitalized at [facility]. She was seen and examined by cardiology and cardiology recommended to continue the current management with outpatient follow-up as her pain was atypical and her troponins were negative with no EKG changes. Plan to continue metoprolol, sublingual nitroglycerin PRN, and isosorbide mononitrate. Continue brilinta. Continue ASA. Continue atorvastatin. Continue telemetry. Monitor closely for recurrent symptoms. (5) Falls frequently: Code(s): R29.6 - Repeated falls Status: Acute Assessment and Plan: She reports a hx of frequent falls. She was in acute rehab following her hospitalization at [facility] for
[2019-09-26 10:49] LABS: Erythrocyte Sedimentation Rate 58 mm/hr (0-20)
[2019-09-26 11:18] LABS: Creatine Kinase 31 U/L (30-135)
[2019-09-26 11:20] LABS: CRP 1.4 mg/dL (<1.0)
[2019-09-26] MEDS: DOCUSATE SODIUM 100 MG CAPSULE PO (22:19)
[2019-09-26] MEDS: ENOXAPARIN 40 MG/0.4 ML SYRINGE SUB-Q (22:22)
[2019-09-27] VITALS (9 sets, daily range): BP systolic 123–138; BP diastolic 51–78; PULSE 78–114; RESP 16; TEMP 35.9–36.1; O2SAT 97–98
[2019-09-27 05:43] LABS: Blood Urea Nitrogen 11 mg/dL (7-17); Calcium 8.9 mg/dL (8.4-10.2); Carbon Dioxide 27 mmol/L (22-30); Chloride 105 mmol/L (98-107); Estimated CRCL calculation 70 ml/min; Estimated Glomerular Filt Rate > 60; Glucose 123 mg/dL (65-105); Magnesium 1.8 mg/dL (1.6-2.3); Potassium 3.5 mmol/L (3.4-5.0); Sodium 138 mmol/L (137-145)
[2019-09-27 05:46] LABS: Rheumatoid Factor < 8.6 IU/ML (<12)
[2019-09-27] MEDS: CODEINE SULFATE 30 MG TABLET PO (06:01)
--- NOTE | 2019-09-27 06:08 | CONS_ITS ---
DATE OF CONSULTATION: HISTORY OF PRESENT ILLNESS: A 69-year-old has been admitted to [facility] with the complaint of frequent falls resulting in the closed fracture of the right foot along with the bradycardia. As per the information available, she recently got out of the rehab, was doing physical therapy on her own self. Her knees tended to buckle from underneath of her. For that, she has been using a walker and a wheelchair, but she had a ground level fall a night before admission. She lives on her own and has frequent falls. She was complaining of right upper extremity pain, which is chronic in nature, complaining of right foot pain and also has a long-term history of atrial fibrillation, though at present she is in sinus rhythm. She is continuing on Brilinta. She gave no history of head trauma. CT of the head was reportedly normal. Right ankle x-ray documented no acute changes, but x-rays were reported by the radiologist as fracture at the base of 2nd, 3rd, and 4th proximal phalanges. Hip and pelvic x-rays were negative. Chest x-ray documented cardiomegaly. Forearm x-rays were negative. Shoulder x-ray with osteoarthritis. Lumbar spine CT with severe lumbar spondylosis. The patient is reportedly allergic to hydrocodone, had been complaining of severe discomfort. The patient also has underlying severe neuropathy for which is using the gabapentin. PAST MEDICAL HISTORY: Her past history is consistent with multiple problems as mentioned above, particularly atrial fibrillation paroxysmal in nature, with coronary artery disease and resultant congestive heart failure, colitis with diverticulitis, DVT x2 involving the lower extremities, GERD, hypertension, lupus, history of myocardial infarction, peripheral neuropathy, and recurrent UTI and at times ventricular fibrillation as well. PAST SURGICAL HISTORY: She has undergone cardiac catheterization with multiple stents placement, hysterectomy, appendectomy, cataract extraction, cholecystectomy, cervical fusion surgery, and tonsillectomy. SOCIAL HISTORY: She smokes 1-1/2 packs per day, 30 cigarettes per day, 50 years smoked, smoking pack years 75 and current every day smoker, former alcohol drinker. MEDICATIONS: At the time of admission, she was takin. Low-dose aspirin 81 mg daily. 2. Brilinta 90 mg twice a day. 3. Allopurinol 100 mg daily. 4. Atorvastatin 40 mg daily. 5. Furosemide 40 mg daily. 6. Lisinopril 5 mg daily. 7. Isosorbide 60 mg daily. 8. Metoprolol 200 mg twice a day. 9. Potassium chloride. 10. Gabapentin 300 mg 3 times a day. ALLERGIES: SHE IS ALLERGIC TO HYDROCODONE, ADHESIVE TAPES, AND PENICILLIN. PHYSICAL EXAMINATION: VITAL SIGNS: Evaluation up until now documented her to be afebrile with pulse 62, respirations 18, blood pressure 151/56, pulse ox 98%. GENERAL: Reveals her to be awake, alert, in no obvious acute distress. HEENT: Head normocephalic with no cranial bruit. Ear, nose, throat examination normal. NECK: Supple with no cervical bruit. No thyromegaly. No lymphadenopathy. HEART: Regular. LUNGS: Clear. ABDOMEN: Soft with no organomegaly. SKIN: Normal. NEUROLOGICAL: She is awake, alert, oriented x3. Speech not dysphasic, not dysarthric, not dysphonic. Pupils round, regular. Deleon of vision full. Extraocular movements full. Face symmetrical. Tongue midline. Motor examination revealed her to have decreased strength, decreased reflexes, decreased sensation distally. Plantars downgoing. LABORATORY DATA: Evaluation up until now documented CBC with WBC 10.2, hemoglobin 12.7, platelet count 264. Basic metabolic panel normal with glucose of 112. Troponin less than 0.012. UA negative. Chest x-ray negative. Head CT negative. Ankle x-ray is negative. Foot x-rays,
[2019-09-27] MEDS: DULOXETINE HCL 30 MG CAPSULE.DR PO (09:36)
[2019-09-27] MEDS: ATORVASTATIN 40 MG TABLET PO (09:36)
[2019-09-27] MEDS: ASPIRIN 81 MG CHEWABLE TABLET PO (09:36)
[2019-09-27] MEDS: DOCUSATE SODIUM 100 MG CAPSULE PO (09:36)
[2019-09-27] MEDS: FAMOTIDINE 20 MG/2 ML VIAL IV PUSH ×2 (09:36→20:10)
[2019-09-27] MEDS: allopurinoL 100 MG TABLET PO (09:36)
[2019-09-27] MEDS: GABAPENTIN 300 MG CAPSULE PO ×3 (09:36→16:52)
[2019-09-27] MEDS: FUROSEMIDE 40 MG TABLET PO (09:36)
[2019-09-27] MEDS: lisinopriL 5 MG TABLET PO (09:41)
[2019-09-27] MEDS: HYOSCYAMINE SULFATE 0.125 MG TABLET PO ×2 (09:41→16:52)
[2019-09-27] MEDS: ISOSORBIDE MONONITRATE 60 MG TAB.ER.24H PO (09:41)
[2019-09-27] MEDS: TICAGRELOR 90 MG TABLET PO ×2 (09:41→16:52)
--- NOTE | 2019-09-27 11:26 | PM.IMPN ---
Progress Note: A&P Assessment and Plan (1) Fracture of phalanx of multiple toes of right foot: Code(s): S92.911A - Unspecified fracture of right toe(s), initial encounter for closed fracture Status: Acute Assessment and Plan: The patient sustained a fall due to chronic right sided weakness and reports hx of falls over the past year. She suffered fractures of the right second, third, and fourth proximal phalanges of the right foot. She has a walking boot on. Continue analgesics PRN. I have advised the patient that it is unsafe for her to return home and I have recommended SNF to continue PT/OT. She is refusing to go to SNF at discharge and would like to go home first to pack and get her things together. I advised that this is against my medical advice as she is at high risk for recurrent falls and this is not a safe discharge plan. Ultimately, it is her decision but my recommendations were made clear and she verbalized understanding. (2) Chronic pain: Qualifiers: Chronic pain type: other chronic postprocedural pain Qualified Code(s): G89.28 - Other chronic postprocedural pain Code(s): G89.29 - Other chronic pain Status: Acute Assessment and Plan: She reports chronic pain and is on oxycodone prior to admission. She is on gabapentin. Continue cymbalta. (3) Right sided weakness: Code(s): R53.1 - Weakness Status: Chronic Assessment and Plan: She reports chronic right upper extremity and right lower extremity weakness and pain. She reports that her weakness worsened 07/05/19 and was transferred to [facility] per her bpm developer Dr. Mackay and saw neurology at that time but the etiology for her weakness is unclear at this time. Records were requested. CT brain and MRI revealed no evidence of acute infarction and unchanged small old lacunar infarcts at the head of the right caudate nucleus and anterior limb of the right internal capsule with mild scattered periventricular predominant white matter T2 hyperintensity which is within normal limits for age and likely sequela of chronic small vessel ischemic disease. She is on ASA and statin. She may have a component of complex regional pain syndrome in the RUE as she reports pain after her right wrist fracture 03/2019. She has severe lumbar spondylosis on CT lumbar spine. CT cervical spine revealed moderate to severe cervical spondylosis. She has a C5-C7 anterior spinal fusion but has not followed-up with her neurosurgeon. She will benefit from a neurosurgical consultation for her severe spondylosis as I suspect that this may be causing her weakness and pain. Prior neurology records from [facility] were requested but we have not received them. Discussed with Dr. Mcintyre who is seeing the patient in consultation and he ordered EMG/NCS which have not been completed yet. (4) CAD (coronary artery disease): Qualifiers: Coronary Disease-Associated Artery/Lesion type: [place] artery [place] vs. transplanted heart: [place] heart Associated angina: with stable angina Qualified Code(s): I25.118 - Atherosclerotic heart disease of [place] coronary artery with other forms of angina pectoris Code(s): I25.10 - Atherosclerotic heart disease of [place] coronary artery without angina pectoris Status: Chronic Assessment and Plan: The patient has a hx of CAD with four prior MIs. She has multiple stents. Her primary hospital corpsman is Dr. Jimenez and she underwent a cardiac catheterization 06/15/2018 which revealed two-vessel disease with chronic total occlusion of the RCA and high grade stenosis of OM1. She reported an episode of chest pain overnight 09/24/19 which she reports was relieved with nitro. STAT EKG and troponin were negative. Repeat EKG and troponin 09/25/19 were negative. I have consulted cardiology as she reports that she is having angina once weekly. She did not see Dr. Jimenez as scheduled in May as she was hospi
[2019-09-27] MEDS: POTASSIUM CHLORIDE 10 MEQ TABLET.ER PO (13:20)
[2019-09-27] MEDS: ENOXAPARIN 40 MG/0.4 ML SYRINGE SUB-Q (20:12)
[2019-09-28] VITALS (8 sets, daily range): BP systolic 134–154; BP diastolic 62–80; PULSE 55–108; RESP 12–18; TEMP 36.2–36.6; O2SAT 97–98
[2019-09-28 06:19] LABS: Blood Urea Nitrogen 10 mg/dL (7-17); Calcium 8.9 mg/dL (8.4-10.2); Carbon Dioxide 27 mmol/L (22-30); Chloride 103 mmol/L (98-107); Estimated CRCL calculation 62 ml/min; Estimated Glomerular Filt Rate > 60; Glucose 120 mg/dL (65-105); Potassium 3.5 mmol/L (3.4-5.0); Sodium 137 mmol/L (137-145)
[2019-09-28] MEDS: allopurinoL 100 MG TABLET PO (08:49)
[2019-09-28] MEDS: ATORVASTATIN 40 MG TABLET PO (08:49)
[2019-09-28] MEDS: ASPIRIN 81 MG CHEWABLE TABLET PO (08:49)
[2019-09-28] MEDS: GABAPENTIN 300 MG CAPSULE PO ×3 (08:50→17:57)
[2019-09-28] MEDS: lisinopriL 5 MG TABLET PO (08:50)
[2019-09-28] MEDS: ISOSORBIDE MONONITRATE 60 MG TAB.ER.24H PO (08:50)
[2019-09-28] MEDS: FUROSEMIDE 40 MG TABLET PO (08:50)
[2019-09-28] MEDS: HYOSCYAMINE SULFATE 0.125 MG TABLET PO ×2 (08:50→17:57)
[2019-09-28] MEDS: FAMOTIDINE 20 MG/2 ML VIAL IV PUSH (08:50)
[2019-09-28] MEDS: DULOXETINE HCL 30 MG CAPSULE.DR PO (08:50)
[2019-09-28] MEDS: TICAGRELOR 90 MG TABLET PO ×2 (08:50→17:57)
--- NOTE | 2019-09-28 11:27 | WPDNEUROPN ---
Progress Note: A&P Assessment and Plan (1) DVT prophylaxis: Code(s): Z29.9 - Encounter for prophylactic measures, unspecified Status: Acute (2) Chronic pain: Qualifiers: Chronic pain type: other chronic postprocedural pain Qualified Code(s): G89.28 - Other chronic postprocedural pain Code(s): G89.29 - Other chronic pain Status: Acute (3) Right sided weakness: Code(s): R53.1 - Weakness Status: Chronic (4) Hyperlipidemia: Qualifiers: Hyperlipidemia type: unspecified Qualified Code(s): E78.5 - Hyperlipidemia, unspecified Code(s): E78.5 - Hyperlipidemia, unspecified Status: Chronic (5) Irritable bowel syndrome: Code(s): K58.9 - Irritable bowel syndrome without diarrhea Status: Chronic (6) Migraines: Code(s): G43.909 - Migraine, unspecified, not intractable, without status migrainosus Status: Acute (7) Hypertension: Qualifiers: Hypertension type: essential hypertension Qualified Code(s): I10 - Essential (primary) hypertension Code(s): I10 - Essential (primary) hypertension Status: Chronic (8) A-fib: Qualifiers: Atrial fibrillation type: paroxysmal Qualified Code(s): I48.0 - Paroxysmal atrial fibrillation Code(s): I48.91 - Unspecified atrial fibrillation Status: Chronic (9) CHF (congestive heart failure): Qualifiers: Heart failure type: diastolic Heart failure chronicity: chronic Qualified Code(s): I50.32 - Chronic diastolic (congestive) heart failure Code(s): I50.9 - Heart failure, unspecified Status: Chronic (10) Fracture of phalanx of multiple toes of right foot: Code(s): S92.911A - Unspecified fracture of right toe(s), initial encounter for closed fracture Status: Acute (11) Gait instability: Code(s): R26.81 - Unsteadiness on feet Status: Acute (12) Falls frequently: Code(s): R29.6 - Repeated falls Status: Acute (13) Bacteriuria: Code(s): R82.71 - Bacteriuria Status: Acute (14) Bradycardia: Code(s): R00.1 - Bradycardia, unspecified Status: Acute (15) Lupus: Code(s): M32.9 - Systemic lupus erythematosus, unspecified Status: Chronic (16) Colitis: Code(s): K52.9 - Noninfective gastroenteritis and colitis, unspecified Status: Chronic (17) CAD (coronary artery disease): Qualifiers: Coronary Disease-Associated Artery/Lesion type: [place] artery [place] vs. transplanted heart: [place] heart Associated angina: with stable angina Qualified Code(s): I25.118 - Atherosclerotic heart disease of [place] coronary artery with other forms of angina pectoris Code(s): I25.10 - Atherosclerotic heart disease of [place] coronary artery without angina pectoris Status: Chronic (18) Frequent PVCs: Code(s): I49.3 - Ventricular premature depolarization Status: Acute (19) Generalized weakness: Code(s): R53.1 - Weakness Status: Acute Additional Plan stable neurologically will benefit from therapy Review of Systems Review of Systems: All systems reviewed & are unremarkable except as noted in HPI and below Exam Const: General: cooperative, no acute distress, alert and awake Nutritional Appearance: overweight HENMT: Head: normal to inspection Face and sinus: normal facial exam Mouth: Yes Normal oral and palatal mucosa present Eyes: General: appearance normal, both eyes and all related structures Visual Tellez: normal visual tellez by confrontation Alignment and Position: alignment normal Periorbital: periorbital findings normal Eyelids: eyelids normal Sclera: sclerae normal Cornea: corneas normal Pupils: Equal, round and reactive pupils present Neck: Neck: full ROM Resp: Effort & Inspection: normal respiratory effort Auscultation: clear to auscultation bilaterally Cardio: Rate: regular rate Rhythm:
[2019-09-28] MEDS: POTASSIUM CHLORIDE 10 MEQ TABLET.ER PO (14:35)
--- NOTE | 2019-09-28 16:22 | PM.IMPN ---
Progress Note: A&P Assessment and Plan (1) Fracture of phalanx of multiple toes of right foot: Code(s): S92.911A - Unspecified fracture of right toe(s), initial encounter for closed fracture Status: Acute Assessment and Plan: The patient sustained a fall due to chronic right sided weakness and reports hx of falls over the past year. She suffered fractures of the right second, third, and fourth proximal phalanges of the right foot. She has a walking boot on. Continue analgesics PRN. Patient has been accepted for SNF placement at [facility]. (2) Right sided weakness: Code(s): R53.1 - Weakness Status: Chronic Assessment and Plan: She reports chronic right upper extremity and right lower extremity weakness and pain. She reports that her weakness worsened 07/05/19 and was transferred to [facility] per her environmental science program director Dr. Mackay and saw neurology. CT brain and MRI revealed no evidence of acute infarction and unchanged small old lacunar infarcts with mild scattered periventricular predominant white matter T2 hyperintensity which is within normal limits for age and likely sequela of chronic small vessel ischemic disease. She is on ASA and statin. She may have a component of complex regional pain syndrome in the RUE as she reports pain after her right wrist fracture 03/2019. She has severe lumbar spondylosis on CT lumbar spine. CT cervical spine revealed moderate to severe cervical spondylosis. She has a C5-C7 anterior spinal fusion but has not followed-up with her neurosurgeon. Neurology has been consulted and recommendations are appreciated. She will need to obtain an EMG/NCS as an outpatient for which she will follow-up with Dr. Mcintyre. She will benefit from outpatient neurosurgical consultation for her severe spondylosis. She has been evaluated by a neurosurgeon before but she does not wish to return to that neurosurgeon. I will attempt to schedule a neurosurgery appointment for her at [place]. If this is unsuccessful, will have images pushed to Dr. Mcintyre's office and he will refer her to an outpatient neurosurgical consultation. (3) Chronic pain: Qualifiers: Chronic pain type: other chronic postprocedural pain Qualified Code(s): G89.28 - Other chronic postprocedural pain Code(s): G89.29 - Other chronic pain Status: Acute Assessment and Plan: She reports chronic pain with home pain management regimen oxycodone, Cymbalta, and gabapentin Continue cymbalta and gabapentin. Continue tramadol and oxycodone as needed for pain Discontinue prn codeine (4) Falls frequently: Code(s): R29.6 - Repeated falls Status: Acute Assessment and Plan: She reports a hx of frequent falls. She was in acute rehab following her hospitalization at [facility] for her right sided weakness in May 2019 and reports that she still feels week and is unsure if she can care for herself at home. She currently has an aid at home, who is there for approximately 10 hours per day. PT/OT have been consulted for further recommendations which are greatly appreciated. PT/OT has recommended rehab as well. She is accepted to [facility] with Medicaid application pending. (5) CAD (coronary artery disease): Qualifiers: Coronary Disease-Associated Artery/Lesion type: [place] artery [place] vs. transplanted heart: [place] heart Associated angina: with stable angina Qualified Code(s): I25.118 - Atherosclerotic heart disease of [place] coronary artery with other forms of angina pectoris Code(s): I25.10 - Atherosclerotic heart disease of [place] coronary artery without angina pectoris Status: Chronic Assessment and Plan: The patient has a hx of CAD with four prior MIs. She has multiple stents. Her primary coagulating drying supervisor is Dr. Jimenez and she underwent a cardiac catheterization 06/15/2018 which revealed two-vessel disease with chronic total occlusion of
[2019-09-28] MEDS: ENOXAPARIN 40 MG/0.4 ML SYRINGE SUB-Q (20:01)
[2019-09-29 03:57] VITALS: BP 148/73; PULSE 99; RESP 16; TEMP 36.1; O2SAT 97
[2019-09-29 06:30] LABS: Blood Urea Nitrogen 11 mg/dL (7-17); Carbon Dioxide 28 mmol/L (22-30); Chloride 103 mmol/L (98-107); Estimated CRCL calculation 70 ml/min; Estimated Glomerular Filt Rate > 60; Glucose 119 mg/dL (65-105); Potassium 3.7 mmol/L (3.4-5.0); Sodium 136 mmol/L (137-145)
[2019-09-29] MEDS: lisinopriL 5 MG TABLET PO (09:47)
[2019-09-29] MEDS: GABAPENTIN 300 MG CAPSULE PO (09:47)
[2019-09-29] MEDS: FAMOTIDINE 20 MG TABLET PO (09:47)
[2019-09-29] MEDS: ASPIRIN 81 MG CHEWABLE TABLET PO (09:47)
[2019-09-29] MEDS: HYOSCYAMINE SULFATE 0.125 MG TABLET PO (09:47)
[2019-09-29] MEDS: TICAGRELOR 90 MG TABLET PO (09:47)
[2019-09-29] MEDS: allopurinoL 100 MG TABLET PO (09:47)
[2019-09-29] MEDS: DULOXETINE HCL 30 MG CAPSULE.DR PO (09:47)
[2019-09-29] MEDS: POTASSIUM CHLORIDE 10 MEQ TABLET.ER PO (09:47)
[2019-09-29] MEDS: ATORVASTATIN 40 MG TABLET PO (09:47)
[2019-09-29] MEDS: ISOSORBIDE MONONITRATE 60 MG TAB.ER.24H PO (09:47)
--- NOTE | 2019-09-29 11:38 | PM.DS ---
DS: Admitting Diagnosis Admitting Diagnosis Admitting Diagnosis: Unspecified fracture of right toe(s), initial encounter for closed fracture DS: Discharge Diagnosis Discharge Diagnosis (1) Right sided weakness: Code(s): R53.1 - Weakness Status: Chronic Assessment and Plan: She reports chronic right upper extremity and right lower extremity weakness. CT brain and MRI revealed no evidence of acute infarction and unchanged small old lacunar infarcts with mild scattered periventricular predominant white matter T2 hyperintensity which is within normal limits for age and likely sequela of chronic small vessel ischemic disease. She is on ASA and statin. She may have a component of complex regional pain syndrome in the RUE as she reports pain after her right wrist fracture 03/2019. She has severe lumbar spondylosis on CT lumbar spine. CT cervical spine revealed moderate to severe cervical spondylosis. She has a C5-C7 anterior spinal fusion. She was seen in consultation by neurology who recommended that she obtain an EMG/NCS as an outpatient as well as obtain an outpatient neurosurgical consultation. I have spoken with [facility] and will have her records forwarded to the neurosurgery department and a site safety representative will contact her for an appointment. (2) Fracture of phalanx of multiple toes of right foot: Code(s): S92.911A - Unspecified fracture of right toe(s), initial encounter for closed fracture Status: Acute Assessment and Plan: The patient sustained a fall due to chronic right sided weakness and reports hx of falls over the past year. She suffered fractures of the right second, third, and fourth proximal phalanges of the right foot, evident on x-ray on 09/23/2019. She has a cast shoe. She will continue physical therapy at [place]. (3) Chronic pain: Qualifiers: Chronic pain type: other chronic postprocedural pain Qualified Code(s): G89.28 - Other chronic postprocedural pain Code(s): G89.29 - Other chronic pain Status: Acute Assessment and Plan: She will continue her home pain management regimen of oxycodone, Cymbalta, and gabapentin (4) Falls frequently: Code(s): R29.6 - Repeated falls Status: Acute Assessment and Plan: She reports a hx of frequent falls and was unsure if she could care for herself at home. She has an aid at home, who is there for approximately 10 hours per day. She will continue rehab at [facility]. (5) CAD (coronary artery disease): Qualifiers: Coronary Disease-Associated Artery/Lesion type: [place] artery [place] vs. transplanted heart: [place] heart Associated angina: with stable angina Qualified Code(s): I25.118 - Atherosclerotic heart disease of [place] coronary artery with other forms of angina pectoris Code(s): I25.10 - Atherosclerotic heart disease of [place] coronary artery without angina pectoris Status: Chronic Assessment and Plan: The patient has a hx of CAD with four prior MIs. She has multiple stents. Her primary stage hand is Dr. Jimenez and she underwent a cardiac catheterization 06/15/2018 which revealed two-vessel disease with chronic total occlusion of the RCA and high grade stenosis of OM1. She reported an episode of chest pain overnight 09/24/19 which was relieved with nitro. STAT EKG and troponin were negative. Repeat EKG and troponin 09/25/19 were negative. She was seen in consultation by cardiology who recommended continuation of current management including metoprolol, nitroglycerin, isosorbide mononitrate, Brilinta, aspirin, and atorvastatin. (6) CHF (congestive heart failure): Qualifiers: Heart failure type: diastolic Heart failure chronicity: chronic Qualified Code(s): I50.32 - Chronic diastolic (congestive) heart failure Code(s): I50.9 - Heart failure, unspecified Status: Chronic Assessment and Plan: She has a hx of grade 1
--- NOTE | 2019-09-29 13:32 | PC.NURSE ---
Pt being picked up by a friend, pt stated had to grab some paperwork from home, reminded the pt to get to [facility] as soon as she could with her paper work.
== END 2019-09-29 13:30 | DRG 563 ==
LOC: ANHED 15:32 → ANH3MED 16:28
PROVIDERS: Emergency Medicine Emergency Medical Services; Family Medicine; Physician Assistant; Admitting Provider Internal Medicine; Emergency Provider Emergency Medicine; Visit Provider Internal Medicine
DX: S92.911A Unspecified fracture of right toe(s), initial encounter for closed fracture (principal); I50.32 Chronic diastolic (congestive) heart failure; W18.39XA Other fall on same level, initial encounter; I11.0 Hypertensive heart disease with heart failure; I48.0 Paroxysmal atrial fibrillation; I25.10 Atherosclerotic heart disease of native coronary artery without angina pectoris; K21.9 Gastro-esophageal reflux disease without esophagitis; E78.5 Hyperlipidemia, unspecified; K58.2 Mixed irritable bowel syndrome; M32.9 Systemic lupus erythematosus, unspecified; M19.90 Unspecified osteoarthritis, unspecified site; G62.9 Polyneuropathy, unspecified; G43.909 Migraine, unspecified, not intractable, without status migrainosus; F17.210 Nicotine dependence, cigarettes, uncomplicated; R29.6 Repeated falls; R26.81 Unsteadiness on feet; R53.1 Weakness; M47.892 Other spondylosis, cervical region; M47.896 Other spondylosis, lumbar region; G89.29 Other chronic pain; E66.9 Obesity, unspecified; Z68.31 Body mass index [BMI] 31.0-31.9, adult; I25.2 Old myocardial infarction; Z86.718 Personal history of other venous thrombosis and embolism; Z95.5 Presence of coronary angioplasty implant and graft; Z90.710 Acquired absence of both cervix and uterus; Z98.42 Cataract extraction status, left eye; Z98.41 Cataract extraction status, right eye; Z90.49 Acquired absence of other specified parts of digestive tract; Z98.1 Arthrodesis status; Z79.82 Long term (current) use of aspirin; Z79.02 Long term (current) use of antithrombotics/antiplatelets
CPT/HCPCS: 36415; 51701; 70450; 70553; 71045; 72125; 72131; 73030; 73090; 73502; 73610; 73630; 80048; 80061; 81003; 82550; 83036; 83735; 84443; 84484; 85025; 85027; 85610; 85652; 85730; 86140; 86430; 93005; 96361; 96365; 96375; 96376; 97110; 97161; 97165; 97530; 97535; 99285; A9270; A9577; G0378; J0131; J1650; J1885; J2060; J2270; J2405; J3360; J7040; J7120

== ENCOUNTER 2019-10-07 09:59 | Outpatient (CLI) | payer OTHER, MEDICARE, SELFPAY ==
--- NOTE | 2019-10-07 11:00 | NEURO_ITS ---
Patient Number: [id number] Impression: # Complains of leg weakness, right more than left. # Decreased right peroneal nerve response amplitude with foot drop. # Normal F-waves. # Decreased motor unit potentials in right lower extremity compared to left. # No fibs nor abnormal insertional activity. Nerve Conduction Studies Anti Sensory Summary Table Stim Site NR Peak (ms) P-T Amp (?V) Site1 Site2 Delta-P (ms) Dist (cm) Jose David (m/s) Left Sup Fibular Anti Sensory (Ant Lat Mall) 14 cm 3.7 15.4 14 cm Ant Lat Mall 3.7 16.0 43 Right Sup Fibular Anti Sensory (Ant Lat Mall) 14 cm 3.8 4.3 14 cm Ant Lat Mall 3.8 16.0 42 Left Sural Anti Sensory (Lat Mall) Calf 3.9 18.5 Calf Lat Mall 3.9 16.0 41 Right Sural Anti Sensory (Lat Mall) Calf 3.4 13.9 Calf Lat Mall 3.4 16.0 47 Motor Summary Table Stim Site NR Onset (ms) O-P Amp (mV) Site1 Site2 Delta-0 (ms) Dist (cm) Jose David (m/s) Left Peroneal Motor (Vastus Med) Ankle 4.2 0.4 Popit Ankle 9.6 42.0 44 Popit 13.8 0.7 Right Peroneal Motor (Vastus Med) Ankle 4.5 0.6 Popit Ankle 9.3 37.0 40 Popit 13.8 0.5 Left Tibial Motor (Abd Briones Brev) Ankle 4.9 4.5 Knee Ankle 9.0 41.0 46 Knee 13.9 3.2 Right Tibial Motor (Abd Briones Brev) Ankle 5.1 2.4 Knee Ankle 10.4 44.0 42 Knee 15.5 2.5 F Wave Studies NR F-Lat (ms) L-R F-Lat (ms) Left Peroneal (Mrkrs) (EDB) 56.84 0.12 Right Peroneal (Mrkrs) (EDB) 56.73 0.12 Left Tibial (Mrkrs) (Abd Hallucis) 57.62 0.19 Right Tibial (Mrkrs) (Abd Hallucis) 57.43 0.19 EMG Side Muscle Nerve Root Ins Act Fibs Amp Dur Recrt Comment Right AntTibialis Dp Br Fibular L4-5 Nml Nml Nml >12ms Reduced Right Gastroc Tibial S1-2 Nml Nml Nml Nml Reduced Right Fibularis Long Sup Br Fibular L5-S1 Nml Nml Nml Nml Reduced Right Flex Dig Long Tibial L5-S2 Nml Nml Nml Nml Reduced Right Ext Dig Brev Dp Br Fibular L5, S1 Nml Nml Decr >12ms Reduced Left AntTibialis Dp Br Fibular L4-5 Nml Nml Nml Nml Reduced Left Gastroc Tibial S1-2 Nml Nml Nml Nml Reduced Left Fibularis Long Sup Br Fibular L5-S1 Nml Nml Nml Nml Reduced Left Flex Dig Long Tibial L5-S2 Nml Nml Nml Nml Reduced Left Ext Dig Brev Dp Br Fibular L5, S1 Nml Nml Nml Nml Reduced Left QuadratusFem QuadFemoris L4-5, S1 Nml Nml Nml Nml Reduced Right QuadratusFem QuadFemoris L4-5, S1 Nml Nml Nml Nml Reduced MTDD
== END 2019-10-07 10:00 | disposition home or self-care (01) ==
LOC: ANHNEURO 10:01
PROVIDERS: PCP Psychiatry & Neurology Neurology; Visit Provider Psychiatry & Neurology Neurology
DX: G62.9 Polyneuropathy, unspecified (principal)
CPT/HCPCS: 95886; 95910

== ENCOUNTER 2020-06-11 10:54 | Inpatient (IN) | payer MEDICARE, MEDICAID, SELFPAY ==
[2020-06-11] VITALS (19 sets, daily range): BP systolic 107–180; BP diastolic 49–76; PULSE 56–71; RESP 12–20; TEMP 36.3–37.2; O2SAT 92–100; BMI 27.3
--- NOTE | ~2020-06-11 | US_ITS ---
EXAMINATION: US venous doppler [facility] DATE: 06/13/2020 16:24 INDICATION: Right calf pain. TECHNIQUE: Grayscale ultrasound images without and with compression and Doppler ultrasound images of the bilateral lower extremity veins were obtained. COMPARISON: Ultrasound 06/01/2019 FINDINGS: The visualized portions of right common femoral vein, profunda (deep) femoral vein, femoral vein, pop liteal vein, peroneal veins, posterior tibial veins, and greater saphenous vein outflow are patent. The visualized portions of left common femoral vein, profunda femoral vein, femoral vein, popliteal v ein, peroneal veins, posterior tibial veins, and greater saphenous vein outflow are patent. IMPRESSION: 1. No deep venous thrombosis. Reviewed, dictated and finalized at location A. OR INSIGHT MANAGER
--- NOTE | ~2020-06-11 | XR_ITS ---
EXAMINATION: XR chest 1V portable EXAM DATE: 06/11/2020 11:20 INDICATION: Cough and shortness of breath. TECHNIQUE: Portable AP frontal chest x-ray was obtained. Comparison is made to prior examination from 09/23/2019. FINDINGS: Some ill-defined bilateral perihilar streaky opacities, possible edema or infection. No con fluent consolidation. There are no pleural effusions. Cardiac silhouette is prominent but magnified on this AP technique. There is no pneumothorax suspected. The bones and soft tissues are unremarka ble. Lower cervical fusion hardware. IMPRESSION: Ill-defined bilateral perihilar opacities without confluent consolidation, possible devel oping infection or edema. Reviewed, dictated and finalized at location A. CLEANING MACHINE OPERATOR IMPRESSION: Ill-defined bilateral perihilar opacities without confluent consoli dation, possible developing infection or edema.
--- NOTE | 2020-06-11 11:08 | ECG_ITS ---
Measurements Intervals [place] Rate: 70 P: 20 IN: 164 QRS: -59 QRSD: 134 T: -24 QT: 443 QTc: 478 Interpretive Statements SINUS RHYTHM VENTRICULAR TRIGEMINY POSSIBLE LEFT ATRIAL ENLARGEMENT RIGHT BUNDLE BRANCH BLOCK LEFT ANTERIOR FASCICULAR BLOCK POOR R WAVE PROGRESSION, CONSIDER ANTEROLATERAL INFARCT BASELINE ARTIFACT- I, II, AVR, AVL, AVF ABNORMAL ECG Electronically Signed On 06-11-2020 14:21:26 LOIN PULLER by Andrew Dunbar D.O.
[2020-06-11 11:47] LABS: Basophils Absolute Auto 0.1 K/mm3 (0.0-0.1); Basophils Percent Auto 0.8 % (0.2-1.2); Eosinophils Absolute Auto 0.2 K/mm3 (0-0.3); Eosinophils Percent Auto 1.4 % (0-4.4); Hematocrit 40.7 % (37.0-47.0); Hemoglobin 13.7 g/dL (12.0-15.0); Immature Granulocyte Absolute 0.12 K/mm3 (0.00-0.031); Immature Granulocyte Percent A 0.9 % (0-0.5); Lymphocytes Absolute Auto 2.55 K/mm3 (0.9-3.2); Lymphocytes Percent Auto 19.1 % (18.3-44.2); Mean Corpuscular HGB Conc 33.7 g/dl (32-36); Mean Corpuscular Hemoglobin 33.9 pg (26-34); Mean Corpuscular Volume 100.7 fl (80-100); Monocytes Absolute Auto 0.9 K/mm3 (0.1-0.6); Monocytes Percent Auto 6.7 % (2.6-8.5); Neutrophils Absolute Auto 9.5 K/mm3 (1.3-6.7); Neutrophils Percent Auto 71.1 % (45.5-73.1); Platelet Count Result 280 k/mm3 (150-375); Red Blood Count 4.04 M/mm3 (4.2-5.4); Red Cell Distribution Width 14.2 % (11.5-14.5); White Blood Count 13.3 K/mm3 (4.5-10.0)
[2020-06-11 11:57] LABS: Anion Gap 9 mmol/L (8-16); Blood Urea Nitrogen 27 mg/dL (7-17); Calcium 9.9 mg/dL (8.4-10.2); Carbon Dioxide 33 mmol/L (22-30); Chloride 99 mmol/L (98-107); Estimated CRCL calculation 53 ml/min; Estimated Glomerular Filt Rate > 60; Glucose 119 mg/dL (65-105); Potassium 4.2 mmol/L (3.4-5.0); Prothrombin Time 13.4 Seconds (11.1-14.7); Sodium 141 mmol/L (137-145)
[2020-06-11 11:58] LABS: Partial Thromboplastin Time 32.5 SECONDS (22.3-36.8)
[2020-06-11 12:10] LABS: NT Pro B Type Natriuretic Pept 3550 PG/ML (5-100); Troponin I 0.022 ng/mL (0.000-0.034)
[2020-06-11] MEDS: IPRATROPIUM BR 0.02% INH SOLN 0.5 MG/2.5 ML VIAL INHALATION ×2 (13:14→20:16)
[2020-06-11] MEDS: ALBUTEROL SULFATE NEB 2.5 MG/0.5 ML INH 5 MG INHALATION ×2 (13:14→20:16)
[2020-06-11 13:19] LABS: Alveolar/Arterial O2 Gradient 89.7 mmHg; Base Excess ABG 3.7 mEq/l (+/-2.0); Fractional Inspired Oxygen 32 %; HCO3 ABG 29.3 mEq/l (22.0-26.0); Oxygen Content ABG 17.9 %vol (16.0-22.0); Oxyhemoglobin 93.8 % THb (90.0-100.0); PCO2 ABG 48.1 mmHg (35.0-45.0); PO2 ABG 82.2 mmHg (80.0-100.0); PO2 FiO2 Ratio Arterial Blood 2.57 %; Total Hemoglobin 13.5 g/dL (12.0-18.0); pH ABG 7.402 (7.350-7.450)
[2020-06-11 13:20] LABS: Device NASAL CANNULA; Modified Allen's Test Pass; Site Drawn LEFT RADIAL
--- NOTE | 2020-06-11 16:16 | ED.SOB ---
HPI - SOB/Dyspnea General Chief Complaint: Shortness of Breath/Dyspnea Stated Complaint: sob x 1 week Time Seen by Provider: 06/11/20 11:49 Source: patient Mode of arrival: EMS Limitations: clinical condition History of Present Illness HPI Narrative: 70-year-old female From alf for evaluation of shortness of breath Patient is not a very good historian but says that she felt short of breath starting yesterday, and spent the night next to the nursing station because of that This morning she did not feel improved so came to the hospital She does not have any chest pain and no fever but she did report a cough with some sputum production She has a history of A. fib, CHF, and coronary disease; no COPD as far as I can tell Related Data Home Medications Medication Instructions Recorded Confirmed Adult Low Dose Aspirin 81 mg PO DAILY 05/31/19 09/23/19 Brilinta 90 mg PO BID 05/31/19 09/23/19 allopurinol 100 mg PO DAILY 05/31/19 09/23/19 atorvastatin 40 mg PO DAILY 05/31/19 09/23/19 ergocalciferol (vitamin D2) 1,250 unit PO WEEKLY 05/31/19 09/23/19 furosemide 40 mg PO DAILY 05/31/19 09/23/19 hyoscyamine sulfate 0.125 mg PO BID 05/31/19 09/23/19 isosorbide mononitrate 60 mg PO DAILY 05/31/19 09/23/19 lisinopril 5 mg PO DAILY 05/31/19 09/23/19 meclizine 12.5 mg PO Q6H PRN 05/31/19 09/23/19 metoprolol tartrate 200 mg PO BID 05/31/19 09/23/19 nitroglycerin [Nitrostat] 0.6 mg SUBLINGUAL Q5M PRN 05/31/19 09/23/19 potassium chloride 10 meq PO DAILY 05/31/19 09/23/19 gabapentin 300 mg PO TID 09/23/19 09/23/19 Allergies Allergy/AdvReac Type Severity Reaction Status Date / Time hydrocodone Allergy Intermediate Hives Verified 09/23/19 20:06 adhesive tape Allergy Unknown Hives / Verified 09/23/19 12:12 Red Face Penicillins Allergy Unknown Unknown Verified 09/23/19 12:12 Review of Systems Review of Systems: All systems reviewed & are unremarkable except as noted in HPI and below Constitutional: Constitutional: Reports fatigue, Denies fever(s), Denies headache(s) and Reports weakness Eyes: Eyes: Reports no additional eye complaints and Denies change in vision ENT: Denies headache(s), Denies epistaxis, Reports nasal congestion and Denies sore throat Cardiovascular: Cardiovascular: Denies chest pain, Denies leg edema, Denies palpitations and Denies dyspnea Respiratory: Respiratory: Reports cough and Denies dyspnea Gastrointestinal: Gastrointestinal: Denies abdominal pain, Denies diarrhea, Denies nausea and Denies vomiting Genitourinary: Genitourinary: Denies hematuria, Denies urinary frequency and Denies dysuria Musculoskeletal: Musculoskeletal: Reports back pain, Reports myalgias, Denies deformity, Reports arthralgias, Denies muscle weakness and Denies numbness Integumentary/Breasts: Skin/Breast: Denies rash and Denies wounds Neurologic: Denies headache(s), Reports focal weakness and Denies numbness Endocrine: Endocrine: Reports fatigue and Denies palpitations Hematologic/Lymphatic: Hematologic/Lymphatic: Denies easy bruising Allergic/Immunologic: Allergic/Immunologic: Denies wheezing [facility] Past Medical History Medical History (Updated 06/11/20 @ 16:24 by Anton Sharma MD) A-fib Paroxysmal CAD (coronary artery disease) Cataracts, bilateral CHF (congestive heart failure) Closed right ankle fracture Colitis Diverticulitis DVT (deep venous thrombosis) X2 to lower extremities Endometriosis Fracture of great toe GERD (gastroesophageal reflux disease) History of angina Hyperlipidemia Hypertension Internal hemorrhoid Irritable bowel syndrome Mixed Left wrist fracture And right wrist. No surgical procedure Lupus Migraines Myocardial infarction x4, 1997, 1998, 2005, 2017 Nasal sinus polyp Osteoarthritis Peripheral neuropathy Rectal polyp UTI (urinary tract infection) VF (ventricular fibrillation) Surgical History Surgical History (Updated 09/24/19 @ 00:00 by Lisa Ortiz NP) H/O car
--- NOTE | 2020-06-11 19:16 | ADMGEN ---
This patient, Jody Ingram, was admitted to [facility] Surg Room 312-01. Patient/family oriented to hospital policies and general routines including ID bracelet, bed and alarms, visiting hours, pain management, procedures, bathroom and other care routines, personal items, smoking policy, room service/diet, and visiting hours. Information on how to activate the Rapid Response Team has been discussed. Patient/Family are encouraged to report perceived risks to care and to ask questions if they do not understand what they are told or what they should do. Arrived at 1810
[2020-06-11] MEDS: DOXYCYCLINE HYCLATE 100 MG TABLET PO (21:13)
--- NOTE | 2020-06-11 22:00 | PM.IMHP ---
H&P: HPI History of Present Illness Date/Time: 06/11/20 22:00 Chief Complaint: Short of breath Narrative: Jody Ingram is a 70 year old female with a past medical history of coronary artery disease, CHF, atrial fibrillation and right hemidiaphragm paralysis who presented to the ER from [facility] via EMS due to shortness of breath for 1 day. The patient reports that on a beating of the she became more short of breath. She has been having a cough that is occasionally productive. She denies any fevers or chills. She has not been having any chest pain. She is having orthopnea and paroxysmal nocturnal dyspnea. She does not have chronic home O2 requirement. When she arrived to the ER she was satting 88% on room air and was placed on 2 L nasal cannula. She has not been having any lower extremity swelling. The patient reports that she has been having a lot of urinary incontinence due to coughing. She is also started having diarrhea since she arrived to the ER. She does have a history of irritable bowel syndrome. She denies any fevers or chills. Her stools are small volume liquid and brown. She has not been having any abdominal pain. She denies any dysuria and has not been having any hematuria. She has chronic right-sided hand and leg weakness and is nonambulatory at baseline. She reports chronic shoulder pain and is requesting her oxycodone for pain of 5/10 in intensity. The patient is alert and oriented x3 but has a poor to fair historian at best. Review of Systems Review of Systems: Narrative: 12 systems were reviewed with pertinent positives and negatives per HPI. Except as documented in the HPI, all other systems were reviewed and are negative. [facility] Past Medical History Medical History (Updated 06/11/20 @ 22:28 by Alannah Woods DO) A-fib Paroxysmal CAD (coronary artery disease) Cardiac catheterization 06/15/2018 demonstrated 2 vessel disease with chronic total occlusion of RCA and high-grade stenosis of obtuse marginal 1 CHF (congestive heart failure) Echocardiogram May 2019: Basal inferior lateral wall, mid inferior lateral wall are hypokinetic, left atrial enlargement mild, moderate mitral valve regurgitation, mild pulmonic regurgitation, left ventricular chamber mildly enlarged, left ventricular systolic function 55-60, grade 1 diastolic dysfunction Closed right ankle fracture Colitis Diverticulitis DVT (deep venous thrombosis) The 1st DVT was in 1975 it is unclear when she had her 2nd DVT but non within the last 6 years. Endometriosis Fracture of great toe GERD (gastroesophageal reflux disease) History of angina Hyperlipidemia Hypertension Internal hemorrhoid Irritable bowel syndrome Mixed Left wrist fracture And right wrist. No surgical procedure Lupus Migraines Myocardial infarction x4, 1997, 1998, 2005, 2017 Nasal sinus polyp Osteoarthritis Peripheral neuropathy Rectal polyp UTI (urinary tract infection) VF (ventricular fibrillation) Surgical History Surgical History (Updated 06/11/20 @ 22:28 by Alannah Woods DO) H/O cardiac catheterization She stated that she has multiple stents. History of heart artery stent Patient stated that she has multiple stents History of hysterectomy Due to endometriosis Hx of appendectomy 1977 Hx of cataract removal with insertion of prosthetic lens 2015 Hx of cholecystectomy 1977 Hx of fusion of cervical spine 2007 Hx of tonsillectomy Family History Family History Mother Stomach cancer Sibling Breast cancer Father Cerebrovascular accident Sibling CAD (coronary artery disease) Social History Social History (Updated 06/11/20 @ 22:31 by Alannah Woods DO) Social History: She lives at [facility] since September 2019. She reports alcohol use rarely, on holidays. She reports smoking more cigarettes when she is in pain but does not normally smoke d
[2020-06-11] MEDS: CODEINE SULFATE (*CRX) 30 MG TABLET PO (22:47)
[2020-06-11] MEDS: GABAPENTIN 300 MG CAPSULE 900 MG PO (22:47)
[2020-06-11] MEDS: METOPROLOL TARTRATE 50 MG TAB 200 MG PO (22:48)
[2020-06-11] MEDS: TICAGRELOR 90 MG TABLET PO (22:48)
[2020-06-11] MEDS: FUROSEMIDE INJ 40 MG/4 ML VIAL IV PUSH (23:53)
[2020-06-12] VITALS (19 sets, daily range): BP systolic 104–137; BP diastolic 52–73; PULSE 57–75; RESP 16–20; TEMP 36.1–37.2; O2SAT 93–100; BMI 10.0
[2020-06-12] MEDS: ALBUTEROL SULFATE NEB 2.5 MG/0.5 ML INH 5 MG INHALATION ×4 (01:59→19:02)
[2020-06-12] MEDS: IPRATROPIUM BR 0.02% INH SOLN 0.5 MG/2.5 ML VIAL INHALATION ×4 (01:59→19:02)
[2020-06-12 06:12] LABS: Anion Gap 4 mmol/L (8-16); Blood Urea Nitrogen 29 mg/dL (7-17); Calcium 9.2 mg/dL (8.4-10.2); Carbon Dioxide 36 mmol/L (22-30); Chloride 100 mmol/L (98-107); Estimated CRCL calculation 53 ml/min; Estimated Glomerular Filt Rate > 60; Glucose 111 mg/dL (65-105); Potassium 3.6 mmol/L (3.4-5.0); Sodium 140 mmol/L (137-145)
[2020-06-12 06:43] LABS: Hematocrit 38.2 % (37.0-47.0); Hemoglobin 12.5 g/dL (12.0-15.0); Mean Corpuscular HGB Conc 32.7 g/dl (32-36); Mean Corpuscular Hemoglobin 32.8 pg (26-34); Mean Corpuscular Volume 100.3 fl (80-100); Mean Platelet Volume 9.5 fl (7.4-10.4); Platelet Count Result 261 k/mm3 (150-375); Red Blood Count 3.81 M/mm3 (4.2-5.4); Red Cell Distribution Width 14.2 % (11.5-14.5); White Blood Count 12.8 K/mm3 (4.5-10.0)
--- NOTE | 2020-06-12 09:17 | WPDNEURCNPN ---
Assessment and Plan Assessment and plan (1) Acute respiratory failure with hypoxia: Code(s): J96.01 - Acute respiratory failure with hypoxia Status: Acute (2) Gait instability: Code(s): R26.81 - Unsteadiness on feet Status: Acute (3) Falls frequently: Code(s): R29.6 - Repeated falls Status: Acute Additional Plan Right-sided neurological deficit with hyperreflexia and positive Babinski bilaterally and negative MRI of the brain in September of 2019 and history of cervical surgical intervention. Findings suggestive of cervical myelopathy resulting in the sites right-sided neurological deficit with hyperreflexia upgoing plantar responses. Has been documented to have small old lacunar infarct in the head of the right caudate nucleus and anterior limb of the right internal capsule those findings on MRI are not correlating with the neurological deficit at this time, general medical treatment will be continued as such Consult date: 06/12/20 Time Seen: 10:00 HPI: Jody Ingram is a 70 year old femaleAdmitted to the hospital for the complaints of shortness of breath. Patient in addition has ongoing history of 1. Congestive heart failure 2. Atrial fibrillation 3. And right hemidiaphragm paralysis she reported her shortness of breath is accompanied by cough which is occasionally productive but she does not have any associated chest discomfort on arrival in the emergency room she was 88% on room air she was not found to have edema of the lower extremities. she gave history of smoking around 10 cigarettes over the weekend and has been smoking on and off for the last 50 years. initial evaluation documented 12.8 1000 WBCs with hemoglobin 12.5, normal basic metabolic panel except BUN of 29, and abnormal blood gases with pCO2 of 48.1, x-ray chest with ill-defined bilateral perihilar opacities suggesting the possibility of infection versus edema. Patient has been started on ceftriaxone and doxycycline along with the respiratory treatment but patient has also been taking Sinemet [id number] tablets 3 times a day. Review of Systems Review of Systems: All systems reviewed & are unremarkable except as noted in HPI and below PMFSH Past Medical History Medical History A-fib Paroxysmal CAD (coronary artery disease) Cardiac catheterization 06/15/2018 demonstrated 2 vessel disease with chronic total occlusion of RCA and high-grade stenosis of obtuse marginal 1 CHF (congestive heart failure) Echocardiogram May 2019: Basal inferior lateral wall, mid inferior lateral wall are hypokinetic, left atrial enlargement mild, moderate mitral valve regurgitation, mild pulmonic regurgitation, left ventricular chamber mildly enlarged, left ventricular systolic function 55-60, grade 1 diastolic dysfunction Closed right ankle fracture Colitis Diverticulitis DVT (deep venous thrombosis) The 1st DVT was in 1975 it is unclear when she had her 2nd DVT but non within the last 6 years. Endometriosis Fracture of great toe GERD (gastroesophageal reflux disease) History of angina Hyperlipidemia Hypertension Internal hemorrhoid Irritable bowel syndrome Mixed Left wrist fracture And right wrist. No surgical procedure Lupus Migraines Myocardial infarction x4, 1996, 1998, 2004, 2017 Nasal sinus polyp Osteoarthritis Peripheral neuropathy Rectal polyp UTI (urinary tract infection) VF (ventricular fibrillation) Surgical History Surgical History H/O cardiac catheterization She stated that she has multiple stents. History of heart artery stent Patient stated that she has multiple stents History of hysterectomy Due to endometriosis Hx of appendectomy 1977 Hx of cataract removal with insertion of prosthetic lens 2015 Hx of cholecystectomy 1977 Hx of fusion of cervical spine 2007 Hx of tonsillectomy Family History Family History (Revi
[2020-06-12] MEDS: ENOXAPARIN 40 MG/0.4 ML SYRINGE SUB-Q (10:09)
[2020-06-12] MEDS: ATORVASTATIN 40 MG TABLET PO (10:10)
[2020-06-12] MEDS: DOXYCYCLINE HYCLATE 100 MG TABLET PO ×2 (10:10→20:31)
[2020-06-12] MEDS: HYOSCYAMINE SULFATE 0.125 MG TABLET PO ×2 (10:11→18:20)
[2020-06-12] MEDS: METOPROLOL TARTRATE 50 MG TAB 200 MG PO ×2 (10:12→20:30)
[2020-06-12] MEDS: GABAPENTIN 300 MG CAPSULE 900 MG PO ×2 (10:12→20:31)
[2020-06-12] MEDS: ISOSORBIDE MONONITRATE 60 MG TAB.ER.24H PO (10:13)
[2020-06-12] MEDS: CARBIDOPA/LEVODOPA 10/100 MG TABLET 1 TABLET PO ×3 (10:13→18:20)
[2020-06-12] MEDS: POTASSIUM CHLORIDE 10 MEQ TABLET.ER PO (10:13)
[2020-06-12] MEDS: lisinopriL 5 MG TABLET PO (10:13)
[2020-06-12] MEDS: ASPIRIN 81 MG ENTERIC TABLET PO (10:13)
[2020-06-12] MEDS: TICAGRELOR 90 MG TABLET PO ×2 (10:14→18:19)
[2020-06-12] MEDS: allopurinoL 100 MG TABLET PO (10:14)
[2020-06-12] MEDS: DULoxetine HCL 60 MG CAPSULE.DR PO (10:14)
[2020-06-12] MEDS: FUROSEMIDE INJ 40 MG/4 ML VIAL IV PUSH (10:14)
[2020-06-12] MEDS: oxyCODONE HCL (*CRX) 5 MG TAB IR PO ×2 (10:34→18:16)
--- NOTE | 2020-06-12 14:50 | PM.IMPN ---
Progress Note: A&P Assessment and Plan (1) Acute respiratory failure with hypoxia: Code(s): J96.01 - Acute respiratory failure with hypoxia Status: Acute Assessment and Plan: Acute hypoxic respiratory failure likely due to combination of CHF and possible pneumonia. Given the patient is in a long-term care facility will check for COVID-19. Patient states she had COVID in April and has also been vaccinated twice. Will swab for influenza. The patient remains on droplet and airborne isolation. IV antibiotics and p.o. doxy DuoNeb treatments IV diuretics Will avoid azithromycin or Levaquin has the patient's QT interval is upper limit of normal. Blood cultures are pending. Continue monitoring respiratory status. Wean oxygen as tolerated (2) Pneumonia: Qualifiers: Laterality: bilateral Lung location: unspecified part of lung Pneumonia type: due to unspecified organism Qualified Code(s): J18.9 - Pneumonia, unspecified organism Code(s): J18.9 - Pneumonia, unspecified organism Status: Acute Assessment and Plan: Continue IV antibiotics for possible pneumonia versus COVID pneumonia versus viral pneumonia from possible influenza DuoNebs Continue monitoring patient's labs in symptoms. (3) CHF (congestive heart failure): Qualifiers: Heart failure type: diastolic Heart failure chronicity: chronic Qualified Code(s): I50.32 - Chronic diastolic (congestive) heart failure Code(s): I50.9 - Heart failure, unspecified Status: Chronic Assessment and Plan: Some crackles with inspiration. The patient's BNP is elevated from her baseline. Continue 40 mg of Lasix IV daily. Will repeat electrolyte panel Will monitor strict I&O's and daily weight. (4) Hypertension: Qualifiers: Hypertension type: essential hypertension Qualified Code(s): I10 - Essential (primary) hypertension Code(s): I10 - Essential (primary) hypertension Status: Chronic Assessment and Plan: Blood pressure this morning was 132/61. Stable. Continue home medications. (5) Hyperlipidemia: Qualifiers: Hyperlipidemia type: unspecified Qualified Code(s): E78.5 - Hyperlipidemia, unspecified Code(s): E78.5 - Hyperlipidemia, unspecified Status: Chronic Assessment and Plan: Continue statin. Additional Plan This document was completed by using [employer] Direct speech recognition software, therefore, software tools engineer variances may occur. Despite proof reading and review of records errors may persist. Time Spent With Patient Time with patient: 25 - 35 minutes Subjective Date/time seen: 06/12/20 14:50 Interval history: Date of service 06/12/2020: Patient reports coming in for some shortness of breath, increased fatigue and lack of appetite. She was found to be hypoxic and placed on 2 L of oxygen. She denies much improvement of her shortness of breath at this time. She does have a slight cough with white/yellow sputum production. She had been having some leg swelling but states she does not have any since her legs have him up in bed all day. She denies any chest pain, fever, chills, nausea, vomiting, abdominal pain, constipation, diarrhea, headache, lightheadedness, dizziness or any other symptoms at this time. Review of Systems Review of Systems: All systems reviewed & are unremarkable except as noted in HPI and below Exam Narrative: Exam Narrative: General: 70-year-old woman laying flat in bed, with chips and cookies sitting in front of her. Appears comfortable. In no acute distress. Skin: No jaundice or cyanosis. Good skin turgor. Neck: Full range of motion. Supple. Respi
[2020-06-12 17:27] LABS: Influenza Control Positive
[2020-06-12 18:02] LABS: SARS-CoV-2 RNA PCR Negative
[2020-06-12] MEDS: SALINE 0.65% NAS SOLN 44 ML BTL 1 SPRAY NASAL (20:30)
[2020-06-12] MEDS: SODIUM CHLORIDE NASAL GEL 14.1 GM 1 APPLIC NASAL (20:30)
[2020-06-13] VITALS (14 sets, daily range): BP systolic 97–117; BP diastolic 50–88; PULSE 61–72; RESP 16–20; TEMP 36.4–36.6; O2SAT 93–97
[2020-06-13] MEDS: oxyCODONE HCL (*CRX) 5 MG TAB IR PO ×3 (02:38→17:02)
[2020-06-13] MEDS: SALINE 0.65% NAS SOLN 44 ML BTL 1 SPRAY NASAL (02:41)
[2020-06-13] MEDS: ALBUTEROL SULFATE NEB 2.5 MG/0.5 ML INH 5 MG INHALATION ×4 (03:55→20:10)
[2020-06-13] MEDS: IPRATROPIUM BR 0.02% INH SOLN 0.5 MG/2.5 ML VIAL INHALATION ×4 (03:55→20:10)
[2020-06-13 05:50] LABS: Hematocrit 35.7 % (37.0-47.0); Hemoglobin 11.9 g/dL (12.0-15.0); Mean Corpuscular HGB Conc 33.3 g/dl (32-36); Mean Corpuscular Hemoglobin 33.5 pg (26-34); Mean Corpuscular Volume 100.6 fl (80-100); Mean Platelet Volume 9.2 fl (7.4-10.4); Platelet Count Result 214 k/mm3 (150-375); Red Blood Count 3.55 M/mm3 (4.2-5.4); Red Cell Distribution Width 14.1 % (11.5-14.5); White Blood Count 11.8 K/mm3 (4.5-10.0)
[2020-06-13 06:03] LABS: Anion Gap 5 mmol/L (8-16); Blood Urea Nitrogen 33 mg/dL (7-17); CRP 1.6 mg/dL (<1.0); Calcium 9.5 mg/dL (8.4-10.2); Carbon Dioxide 33 mmol/L (22-30); Chloride 100 mmol/L (98-107); Estimated CRCL calculation 48 ml/min; Estimated Glomerular Filt Rate 55; Glucose 114 mg/dL (65-105); Magnesium 1.6 mg/dL (1.6-2.3); Potassium 3.3 mmol/L (3.4-5.0); Sodium 138 mmol/L (137-145)
[2020-06-13] MEDS: ENOXAPARIN 40 MG/0.4 ML SYRINGE SUB-Q (09:00)
[2020-06-13] MEDS: allopurinoL 100 MG TABLET PO (09:00)
[2020-06-13] MEDS: TICAGRELOR 90 MG TABLET PO ×2 (09:00→17:04)
[2020-06-13] MEDS: GABAPENTIN 300 MG CAPSULE 900 MG PO ×2 (09:00→20:07)
[2020-06-13] MEDS: HYOSCYAMINE SULFATE 0.125 MG TABLET PO ×2 (09:00→17:05)
[2020-06-13] MEDS: ASPIRIN 81 MG ENTERIC TABLET PO (09:01)
[2020-06-13] MEDS: ISOSORBIDE MONONITRATE 60 MG TAB.ER.24H PO (09:01)
[2020-06-13] MEDS: CARBIDOPA/LEVODOPA 10/100 MG TABLET 1 TABLET PO ×3 (09:01→17:04)
[2020-06-13] MEDS: ATORVASTATIN 40 MG TABLET PO (09:02)
[2020-06-13] MEDS: DULoxetine HCL 60 MG CAPSULE.DR PO (09:02)
[2020-06-13] MEDS: FUROSEMIDE INJ 40 MG/4 ML VIAL IV PUSH (09:02)
[2020-06-13] MEDS: METOPROLOL TARTRATE 50 MG TAB 200 MG PO ×2 (09:03→20:07)
[2020-06-13] MEDS: POTASSIUM CHLORIDE 10 MEQ TABLET.ER PO (09:03)
[2020-06-13] MEDS: DOXYCYCLINE HYCLATE 100 MG TABLET PO ×2 (09:03→20:09)
[2020-06-13] MEDS: POTASSIUM CHLORIDE 20 MEQ PACKET (FOR LIQUID) 40 MEQ PO (09:04)
[2020-06-13] MEDS: lisinopriL 5 MG TABLET PO (09:04)
--- NOTE | 2020-06-13 15:33 | PM.IMPN ---
Progress Note: A&P Assessment and Plan (1) Acute respiratory failure with hypoxia: Code(s): J96.01 - Acute respiratory failure with hypoxia Status: Acute Assessment and Plan: Acute hypoxic respiratory failure likely due to combination of CHF exacerbation and possible pneumonia. Now on RA since this morning and tolerating this well Continue IV ceftriaxone today; transition to PO cefdinir tomorrow Continue PO doxycycline DuoNeb treatments IV diuretics (2) Pneumonia: Qualifiers: Laterality: bilateral Lung location: unspecified part of lung Pneumonia type: due to unspecified organism Qualified Code(s): J18.9 - Pneumonia, unspecified organism Code(s): J18.9 - Pneumonia, unspecified organism Status: Acute Assessment and Plan: Possible PNA on CXR. Leukocytosis improving. COVID and Flu A/B negative Continue IV ceftriaxone today; transition to PO cefdinir tomorrow Continue PO doxycycline DuoNebs continue to monitor (3) CHF (congestive heart failure): Qualifiers: Heart failure type: diastolic Heart failure chronicity: chronic Qualified Code(s): I50.32 - Chronic diastolic (congestive) heart failure Code(s): I50.9 - Heart failure, unspecified Status: Chronic Assessment and Plan: As evident on CXR with elevated BNP. Minimal crackles on exam. On RA at time of visit. Clinically improved. No accurate I/O Will transition to home PO lasix tomorrow Will repeat electrolyte panel Will monitor I&O's and daily weight. (4) Hypertension: Qualifiers: Hypertension type: essential hypertension Qualified Code(s): I10 - Essential (primary) hypertension Code(s): I10 - Essential (primary) hypertension Status: Chronic Assessment and Plan: Blood pressure a bit soft today Continue home medications. Transition to PO lasix tomorrow (5) Hyperlipidemia: Qualifiers: Hyperlipidemia type: unspecified Qualified Code(s): E78.5 - Hyperlipidemia, unspecified Code(s): E78.5 - Hyperlipidemia, unspecified Status: Chronic Assessment and Plan: Continue statin. Subjective Date/time seen: 06/13/20 15:33 Interval history: Patient is a 70 year old female with a past medical history of coronary artery disease, CHF, atrial fibrillation and right hemidiaphragm paralysis who is seen in follow up for acute respiratory failure with hypoxia possibly due to Pneumonia vs CHF exacerbation or combination thereof. Patient states she feels much better today in terms of her breathing. Her main complaint is her bottom hurting from lying in bed. She thinks her breathing has improved significantly since admission. She also notes pain behind her right knee and calf. She has no other complaints. Denies f/c/s, headaches, dizziness, lightheadedness, cp/palpitations, n/v/d/c, abd pain, changes in BMs, dysuria Review of Systems Review of Systems: All systems reviewed & are unremarkable except as noted in HPI and below Exam Narrative: Exam Narrative: General: Patient resting supine in bed with head raised in no acute distress. HEENT: Normocephalic, EOMI, oral mucosa moist. Cardiovascular: Rate and rhythm are regular. No notable murmur, rub, or gallop. Respiratory: minimal crackles in lung bases, with minimal rhonchi in left base. Non-labored breathing. On RA at time of visit Abdomen: Soft, non-tender, non-distended, bowel sounds present. Extremities: Peripheral pulses intact. b/l LE edema. Right calf and posterior knee ttp Neuro: No focal neurological deficits. Speech is clear. Objective Data Vital Signs Vital Signs: Last Vital Signs Temp 97.6 F 06/13/20 14:00 Pulse 62 06/13
[2020-06-13] MEDS: guaiFENesin/DEXTROMETHORPHAN 10 ML UDC 5 ML PO (17:06)
[2020-06-13] MEDS: SODIUM CHLORIDE NASAL GEL 14.1 GM 1 APPLIC NASAL (20:08)
[2020-06-14] VITALS (8 sets, daily range): BP systolic 105–114; BP diastolic 43–70; PULSE 65–88; RESP 16–92; TEMP 36.6; O2SAT 91–95
[2020-06-14] MEDS: ALBUTEROL SULFATE NEB 2.5 MG/0.5 ML INH 5 MG INHALATION ×3 (01:55→14:43)
[2020-06-14] MEDS: IPRATROPIUM BR 0.02% INH SOLN 0.5 MG/2.5 ML VIAL INHALATION ×3 (01:55→14:43)
[2020-06-14] MEDS: oxyCODONE HCL (*CRX) 5 MG TAB IR PO ×2 (02:48→10:10)
[2020-06-14 05:49] LABS: Hemoglobin 11.4 g/dL (12.0-15.0); Mean Corpuscular HGB Conc 33.5 g/dl (32-36); Mean Corpuscular Hemoglobin 33.2 pg (26-34); Mean Corpuscular Volume 99.1 fl (80-100); Mean Platelet Volume 9.3 fl (7.4-10.4); Platelet Count Result 216 k/mm3 (150-375); Red Blood Count 3.43 M/mm3 (4.2-5.4); Red Cell Distribution Width 14.1 % (11.5-14.5); White Blood Count 11.4 K/mm3 (4.5-10.0)
[2020-06-14 06:06] LABS: Anion Gap 6 mmol/L (8-16); Blood Urea Nitrogen 39 mg/dL (7-17); Calcium 9.1 mg/dL (8.4-10.2); Carbon Dioxide 31 mmol/L (22-30); Chloride 100 mmol/L (98-107); Estimated CRCL calculation 41 ml/min; Estimated Glomerular Filt Rate 44; Glucose 104 mg/dL (65-105); Magnesium 1.5 mg/dL (1.6-2.3); Potassium 3.9 mmol/L (3.4-5.0); Sodium 137 mmol/L (137-145)
[2020-06-14] MEDS: METOPROLOL TARTRATE 50 MG TAB 200 MG PO (08:01)
[2020-06-14] MEDS: GABAPENTIN 300 MG CAPSULE 900 MG PO (08:02)
[2020-06-14] MEDS: CEFDINIR 300 MG CAPSULE PO (08:03)
[2020-06-14] MEDS: FUROSEMIDE 40 MG TABLET PO (08:04)
[2020-06-14] MEDS: DOXYCYCLINE HYCLATE 100 MG TABLET PO (08:04)
[2020-06-14] MEDS: HYOSCYAMINE SULFATE 0.125 MG TABLET PO ×2 (08:04→17:32)
[2020-06-14] MEDS: ISOSORBIDE MONONITRATE 60 MG TAB.ER.24H PO (08:05)
[2020-06-14] MEDS: ENOXAPARIN 40 MG/0.4 ML SYRINGE SUB-Q (08:05)
[2020-06-14] MEDS: DULoxetine HCL 60 MG CAPSULE.DR PO (08:05)
[2020-06-14] MEDS: TICAGRELOR 90 MG TABLET PO ×2 (08:06→17:32)
[2020-06-14] MEDS: POTASSIUM CHLORIDE 10 MEQ TABLET.ER PO (08:06)
[2020-06-14] MEDS: ATORVASTATIN 40 MG TABLET PO (08:06)
[2020-06-14] MEDS: lisinopriL 5 MG TABLET PO (08:06)
[2020-06-14] MEDS: allopurinoL 100 MG TABLET PO (08:07)
[2020-06-14] MEDS: ASPIRIN 81 MG ENTERIC TABLET PO (08:07)
[2020-06-14] MEDS: CARBIDOPA/LEVODOPA 10/100 MG TABLET 1 TABLET PO ×3 (08:07→17:31)
--- NOTE | 2020-06-14 12:14 | PM.DS ---
DS: Admitting Diagnosis Admitting Diagnosis Admitting Diagnosis: Pneumonia, CHF, acute respiratory failure with hypoxia DS: Discharge Diagnosis Discharge Diagnosis (1) Acute respiratory failure with hypoxia: Code(s): J96.01 - Acute respiratory failure with hypoxia Status: Acute Assessment and Plan: Acute hypoxic respiratory failure likely due to combination of CHF exacerbation and possible pneumonia. Now on RA since 06/13 and tolerating this well. Symptomatically she feels much better today Continue PO cefdinir through 06/17 to complete 7 days 3rd gen cephalosporin Continue PO doxycycline through 06/17 to complete 7 days DuoNeb treatments during stay Transitioned to PO diuretics today (2) Pneumonia: Qualifiers: Laterality: bilateral Lung location: unspecified part of lung Pneumonia type: due to unspecified organism Qualified Code(s): J18.9 - Pneumonia, unspecified organism Code(s): J18.9 - Pneumonia, unspecified organism Status: Acute Assessment and Plan: Possible PNA on CXR. Leukocytosis improving. COVID and Flu A/B negative As above, continue Doxycycline and cefdinir through 06/17 to complete 7 days total antibiotics DuoNebs during stay F/u with PCP (3) CHF (congestive heart failure): Qualifiers: Heart failure chronicity: chronic Heart failure type: diastolic Qualified Code(s): I50.32 - Chronic diastolic (congestive) heart failure Code(s): I50.9 - Heart failure, unspecified Status: Chronic Assessment and Plan: As evident on CXR with elevated BNP. Minimal crackles on exam. On RA at time of visit. Clinically improved. No accurate I/O Continue home diuretics tomorrow BMP next week Will weight at facility (4) Hypertension: Qualifiers: Hypertension type: essential hypertension Qualified Code(s): I10 - Essential (primary) hypertension Code(s): I10 - Essential (primary) hypertension Status: Chronic Assessment and Plan: Blood pressure 110s sys most recently Continue home medications. (5) Hyperlipidemia: Qualifiers: Hyperlipidemia type: unspecified Qualified Code(s): E78.5 - Hyperlipidemia, unspecified Code(s): E78.5 - Hyperlipidemia, unspecified Status: Chronic Assessment and Plan: Continue statin. (6) HO (acute kidney injury): Code(s): N17.9 - Acute kidney failure, unspecified Status: Acute Assessment and Plan: Cr up to 1.20 today; likely secondary to aggressive diuresis Will repeat BMP on 06/19 for monitoring DS: Summary Hospital Course Reason for hospitalization: Pneumonia, CHF, acute respiratory failure with hypoxia Hospital Course: Date of arrival: 06/11/20 Date of discharge: 06/14/20 Patient is a 70 year old female with a past medical history of coronary artery disease, CHF, atrial fibrillation and right hemidiaphragm paralysis who presented to the ER from [facility] via EMS on 06/11 due to shortness of breath for 1 day. While in the ED, she was found to be hypoxic and placed on 2L O2 via NC. CXR showed ill-defined bilateral perihilar opacities without confluent consolidation, possible infection or edema. She was started on Rocephin and doxycycline from the ED for possible pneumonia. She initially was given IV fluids in ED. Patient admitted under this setting of possible pneumonia. Please see H&P for further details. Patient was admitted to the hospitalist service for further management/treatment. Blood cultures drawn in the ED were negative x 2 after 4 days; will follow to finalization. IV fluids were stopped and patient was given IV lasix as it was felt she was a bit
[2020-06-14 17:20] LABS: SARS-CoV-2 RNA PCR Negative
== END 2020-06-14 19:20 | DRG 291 ==
LOC: ANHED 16:24 → ANH3MEDSUR 19:42
PROVIDERS: Internal Medicine; Physician Assistant; Admitting Provider Internal Medicine; Emergency Provider Emergency Medicine; PCP Psychiatry & Neurology Neurology; Visit Provider Physician Assistant
DX: I11.0 Hypertensive heart disease with heart failure (principal); J18.9 Pneumonia, unspecified organism; J96.01 Acute respiratory failure with hypoxia; N17.9 Acute kidney failure, unspecified; I48.20 Chronic atrial fibrillation, unspecified; M50.00 Cervical disc disorder with myelopathy, unspecified cervical region; I50.33 Acute on chronic diastolic (congestive) heart failure; E78.5 Hyperlipidemia, unspecified; I25.10 Atherosclerotic heart disease of native coronary artery without angina pectoris; Z20.822 Contact with and (suspected) exposure to COVID-19; M19.90 Unspecified osteoarthritis, unspecified site; K58.2 Mixed irritable bowel syndrome; K21.9 Gastro-esophageal reflux disease without esophagitis; M32.9 Systemic lupus erythematosus, unspecified; G62.9 Polyneuropathy, unspecified; F17.210 Nicotine dependence, cigarettes, uncomplicated; R29.6 Repeated falls; J98.6 Disorders of diaphragm; I25.2 Old myocardial infarction; Z86.718 Personal history of other venous thrombosis and embolism; Z95.5 Presence of coronary angioplasty implant and graft; Z90.710 Acquired absence of both cervix and uterus; Z90.49 Acquired absence of other specified parts of digestive tract; Z98.1 Arthrodesis status
CPT/HCPCS: 36415; 36600; 71045; 80048; 82805; 83735; 83880; 84484; 85025; 85027; 85610; 85730; 86140; 87040; 87804; 93005; 93970; 94640; 96365; 96368; 97110; 97161; 97166; 97530; 97535; 99285; A9270; C9803; J0696; J1650; J1940; U0003; U0005

== ENCOUNTER 2020-08-02 13:10 | Outpatient (CLI) | payer MEDICARE, MEDICAID, SELFPAY ==
--- NOTE | 2020-08-02 15:00 | NEURO_ITS ---
Impression: # Complains of weakness in all extremities. Patient wheelchair bound and unable to transfer to table to only right upper extremity tested. # Right severe ulnar neuropathy. # No Carpal Tunnel Syndrome. # Needle/EMG exam abnormal. # Recommendation of MRI C-spine. Nerve Conduction Studies Anti Sensory Summary Table Stim Site NR Peak (ms) P-T Amp (?V) Site1 Site2 Delta-P (ms) Dist (cm) Jose David (m/s) Right Median Anti Sensory (2-3nd Digit) Wrist 2.6 40.4 Wrist 2-3nd Digit 2.6 14.0 54 Wrist 2.5 71.9 Wrist 2-3nd Digit 2.6 14.0 54 Right Radial Anti Sensory (Base 1st Digit) Wrist 2.8 34.2 Wrist Base 1st Digit 2.8 0.0 Right Ulnar Anti Sensory (5th Digit) Wrist 2.7 47.7 Wrist 5th Digit 2.7 14.0 52 Motor Summary Table Stim Site NR Onset (ms) O-P Amp (mV) Site1 Site2 Delta-0 (ms) Dist (cm) Jose David (m/s) Right Median Motor (Abd Poll Brev) Wrist 3.4 5.1 Elbow Wrist 4.6 24.0 52 Elbow 8.0 5.1 Right Ulnar Motor (Abd Dig Minimi) Wrist 3.0 3.1 A Elbow Wrist 7.3 25.0 34 A Elbow 10.3 2.0 B Elbow Wrist 4.4 21.0 48 B Elbow 7.4 2.9 F Wave Studies NR F-Lat (ms) L-R F-Lat (ms) Right Median (Mrkrs) (Abd Poll Brev) 29.12 Right Ulnar (Mrkrs) (Abd Dig Min) 30.96 EMG Side Muscle Nerve Root Ins Act Fibs Amp Dur Recrt Comment Right 1stDorInt Ulnar C8-T1 Nml Nml Nml Nml Reduced Right Ext Indicis Radial (Post Int) C7-8 Nml Nml Nml Nml Nml Right Ext Digitorum Radial (Post Int) C7-8 Nml Nml Nml Nml Nml Right BrachioRad Radial C5-6 Nml Nml Nml Nml Reduced Right PronatorTeres Median C6-7 Nml Nml Nml Nml Nml Right Abd Poll Brev Median C8-T1 Nml Nml Nml Nml Reduced MTDD
== END 2020-08-02 13:11 | disposition home or self-care (01) ==
PROVIDERS: PCP Family Medicine; Visit Provider Nurse Practitioner Family
DX: G62.9 Polyneuropathy, unspecified (principal); G56.01 Carpal tunnel syndrome, right upper limb
CPT/HCPCS: 95886; 95909

== ENCOUNTER 2020-08-23 08:01 | Outpatient (CLI) | payer MEDICARE, MEDICAID, SELFPAY | END 2020-08-23 08:02 | disposition home or self-care (01) | LOC: CHSIMG 08:05 | PROVIDERS: PCP Family Medicine; Visit Provider Nurse Practitioner Family | DX: Z53.8 Procedure and treatment not carried out for other reasons (principal) | CPT/HCPCS: 99199 ==

== ENCOUNTER 2020-09-12 11:36 | Outpatient (CLI) | payer MEDICARE, MEDICAID, SELFPAY ==
--- NOTE | ~2020-09-12 | MR_ITS ---
EXAMINATION: MR cervical spine wo con DATE: 09/12/2020 12:54 INDICATION: Neck pain. TECHNIQUE: Magnetic resonance imaging (MRI) of the cervical spine was performed without intravenous c ontrast. Sequences included sagittal T2-weighted FSE, sagittal STIR FSE, sagittal T1-weighted FSE, ax ial MERGE, and axial T2-weighted FSE. COMPARISON: CT cervical spine 09/26/2019 FINDINGS: There is 20 degrees dextroscoliosis of cervicothoracic spine. There is 2 mm anterolisthesis of C4 on C5 and C7 on T1. There are changes of anterior fusion procedure from C5 to C7 with anterior plate and screws. There is healed interbody bone graft at C5-C6. There is severely decreased disc he ight at C4-C5 and mildly decreased disc height at C7-T1. There is increased T2-weighted signal intens ity in the spinal cord at C4 and C5, consistent with myelomalacia. The following disc levels are spec ifically discussed: C2-C3: The disc does not extend beyond the endplate margin. There is no uncovertebral joint osteoarth ritis. There is severe bilateral facet joint osteoarthritis. There is mild bilateral neural foraminal stenosis. There is no central canal stenosis. C3-C4: The disc does not extend beyond the endplate margin. There is moderate right and mild left unc overtebral joint osteoarthritis. There is severe bilateral facet joint osteoarthritis. There is moder ate right and mild left neural foraminal stenosis. There is mild central canal stenosis. C4-C5: The disc is bulging. There is severe bilateral uncovertebral joint osteoarthritis. There is se payam bilateral facet joint osteoarthritis. There is hypertrophy of the ligamentum flavum. There is se payam bilateral neural foraminal stenosis. There is severe central canal stenosis with central and baldomero haven indentation of the spinal cord and abnormal signal in the cord. C5-C6: There is moderate bilateral uncovertebral joint hypertrophy. There is no facet joint hypertrop hy. There is mild bilateral neural foraminal stenosis. There is no central canal stenosis. C6-C7: There is severe bilateral uncovertebral joint hypertrophy. There is mild right facet joint hyp ertrophy. There is mild right and moderate left neural foraminal stenosis. There is no central canal stenosis. C7-T1: The disc does not extend beyond the endplate margin. There is no uncovertebral joint osteoarth ritis. There is severe bilateral facet joint osteoarthritis. There is mild right and moderate left ne ural foraminal stenosis. There is no central canal stenosis. IMPRESSION: 1. Severe cervical spondylosis with cord compression and myelomalacia at C4-C5. 2. Anterior fusion procedure from C5 to C7. Reviewed, dictated and finalized at location A.
== END 2020-09-12 11:37 | disposition home or self-care (01) ==
LOC: ANHIMG 11:41
PROVIDERS: PCP Family Medicine; Visit Provider Family Medicine
DX: M47.813 Spondylosis without myelopathy or radiculopathy, cervicothoracic region (principal); M48.03 Spinal stenosis, cervicothoracic region; Z98.1 Arthrodesis status; G95.89 Other specified diseases of spinal cord; G04.1 Tropical spastic paraplegia
CPT/HCPCS: 72141

== ENCOUNTER 2021-01-30 20:36 | Inpatient (IN) | payer MEDICARE, MEDICAID, SELFPAY ==
--- NOTE | ~2021-01-30 | XR_ITS ---
XR chest 1V portable 01/30/2021 21:41 Indication: Weakness. History of A. fib. History of cardiac stents. Procedure: AP portable chest Comparison: Comparison to multiple prior studies sequentially, with oldest reviewed study dated 04/20. Findings: Cardiomegaly with mild interstitial edema. No significant effusion or pneumothorax. Osteope dominic. No acute osseous abnormality. Impression: 1: Cardiomegaly with interstitial edema. Reviewed, dictated and finalized at location A. Impression: 1: Cardiomegaly with interstitial edema.
--- NOTE | ~2021-01-30 | XR_ITS ---
EXAMINATION: XR abdomen/kub 1V INDICATION: Fecal impaction TECHNIQUE: Supine views of the abdomen were obtained on 2 radiographs. COMPARISON: CT, 01/30/2021 FINDINGS: No persistent fecal impaction is identified. Gas is seen in the rectum. There is unchanged gaseous distention of the stomach. Cholecystectomy clips are noted in the right upper quadrant. There is moderate osteoarthritis of the hips. IMPRESSION: 1. No persistent fecal impaction. 2. Gaseous distention of the stomach. Reviewed, dictated and finalized at location A.
--- NOTE | ~2021-01-30 | CT_ITS ---
EXAMINATION: CT abdomen pelvis wo con DATE: 01/30/2021 23:09 INDICATION: Abdominal distention. Confusion. Decreased urine output. TECHNIQUE: Computed tomography (CT) of the abdomen and pelvis was performed without intravenous contr ast. The dose-length product was 1481.32 mGy-cm. Automated exposure control and iterative reconstruct ion technique were employed. COMPARISON: CT dated 04/03/2018. FINDINGS: Cardiomegaly. Patchy groundglass opacities in the lower lungs, suspicious for pneumonia. No significant pleural or pericardial effusion. Status post cholecystectomy. Moderate atherosclerosis w ithout aneurysm. Large amount of retained fecal material in the distal colon and rectum. There is a 1 0 cm stool ball in the rectum. Barber catheter present in the bladder. No significant small bowel dila tion. The liver, spleen, pancreas, adrenal glands and kidneys are unremarkable. Severe lumbar spondylosis. Advanced degenerative changes of the hips. IMPRESSION: 1. Fecal impaction of the distal colon and rectum. 10 cm stool ball present in the rectum. 2: Patchy groundglass opacities in the lower lungs, suspicious for pneumonia. 3: Cardiomegaly. Reviewed, dictated and finalized at location A.
--- NOTE | ~2021-01-30 | CT_ITS ---
EXAMINATION: CT brain wo con DATE: 01/30/2021 23:09 INDICATION: Altered mental status. Confusion. TECHNIQUE: Computed tomography (CT) of the head was performed without intravenous contrast. The dose- length product was 605.33 mGy-cm. Automated exposure control and iterative reconstruction technique w ere employed. COMPARISON: CT dated 09/23/2019 FINDINGS: There are chronic right lacunar infarctions involving the caudate nucleus and internal caps ule. Generalized atrophy. There are scattered moderate periventricular and subcortical white matter c hanges, most likely related to small vessel ischemic disease (microangiopathy). No ventriculomegaly o r midline shift. Basilar cisterns are patent. There is intracranial atherosclerosis. There is mucosal thickening of the maxillary sinuses. Mild right frontal and ethmoid sinus disease. Mastoids are pneu matized. No depressed skull fractures. IMPRESSION: 1. No acute intracranial abnormality. 2: Moderate sinusitis. 3: Chronic right lacunar infarctions. Reviewed, dictated and finalized at location A.
[2021-01-30 20:36] VITALS: BP 99/60; PULSE 68; RESP 16; TEMP 36.7; O2SAT 99
--- NOTE | 2021-01-30 21:16 | ECG_ITS ---
Measurements Intervals [place] Rate: 70 P: 14 SD: 194 QRS: -55 QRSD: 116 T: -9 QT: 387 QTc: 420 Interpretive Statements SINUS RHYTHM RIGHT BUNDLE BRANCH BLOCK LEFT ANTERIOR FASCICULAR BLOCK POOR R WAVE PROGRESSION, CONSIDER ANTEROLATERAL INFARCT BASELINE ARTIFACT- V3-V6 ABNORMAL ECG Electronically Signed On 01-31-2021 6:38:54 CDT by Andrew Dunbar D.O.
--- NOTE | 2021-01-30 21:28 | ED.GENADULT ---
HPI - General Adult General Chief complaint: Altered Mental Status Stated complaint: altered mental status Time Seen by Provider: 01/30/21 21:03 Source: patient, EMS, RN notes reviewed and old records reviewed Mode of arrival: EMS Limitations: altered mental status History of Present Illness HPI narrative: This is a 70 year old female with history of cervical cord compression , bed bound who presents for evaluation of low urine outpatient, abdominal pain and abdominal distension. Patient is unsure when her last bowel movement occurred. She also reports she has not urinated and nursing staff at facility was unable to place abreu catheter. She denies nausea, vomiting. She reports pain or all over. Related Data Home Medications Medication Instructions Recorded Confirmed Adult Low Dose Aspirin 81 mg PO DAILY 05/31/19 01/31/21 Brilinta 90 mg PO BID 05/31/19 01/31/21 allopurinol 100 mg PO DAILY 05/31/19 01/31/21 atorvastatin 40 mg PO DAILY 05/31/19 01/31/21 ergocalciferol (vitamin D2) 1,250 unit PO WEEKLY 05/31/19 01/31/21 furosemide 40 mg PO DAILY 05/31/19 01/31/21 hyoscyamine sulfate 0.125 mg PO BID 05/31/19 01/31/21 isosorbide mononitrate 60 mg PO DAILY 05/31/19 01/31/21 lisinopril 5 mg PO DAILY 05/31/19 01/31/21 meclizine 12.5 mg PO Q6H PRN 05/31/19 01/31/21 metoprolol tartrate 200 mg PO BID 05/31/19 01/31/21 nitroglycerin [Nitrostat] 0.6 mg SUBLINGUAL Q5M PRN 05/31/19 01/31/21 potassium chloride 10 meq PO DAILY 05/31/19 01/31/21 carbidopa-levodopa [Sinemet] 1 tablet PO TID 06/11/20 01/31/21 duloxetine [Cymbalta] 60 mg PO QAM 06/11/20 01/31/21 Allergies Allergy/AdvReac Type Severity Reaction Status Date / Time hydrocodone Allergy Intermediate Hives Verified 01/30/21 20:54 adhesive tape Allergy Unknown Hives / Verified 01/30/21 20:54 Red Face Penicillins Allergy Unknown Unknown Verified 01/30/21 20:54 Review of Systems Review of Systems: ROS unobtainable: Yes unobtainable due to medical condition [facility] Past Medical History Medical History A-fib Paroxysmal Abnormal MRI, cervical spine CAD (coronary artery disease) Cardiac catheterization 06/15/2018 demonstrated 2 vessel disease with chronic total occlusion of RCA and high-grade stenosis of obtuse marginal 1 Cervical spondylitic cord compression Cervical spondylosis Cervicalgia CHF (congestive heart failure) Echocardiogram May 2019: Basal inferior lateral wall, mid inferior lateral wall are hypokinetic, left atrial enlargement mild, moderate mitral valve regurgitation, mild pulmonic regurgitation, left ventricular chamber mildly enlarged, left ventricular systolic function 55-60, grade 1 diastolic dysfunction Closed right ankle fracture Colitis Diverticulitis DVT (deep venous thrombosis) The 1st DVT was in 1975 it is unclear when she had her 2nd DVT but non within the last 6 years. Endometriosis Fracture of great toe GERD (gastroesophageal reflux disease) History of angina Hyperlipidemia Hypertension Internal hemorrhoid Irritable bowel syndrome Mixed Left wrist fracture And right wrist. No surgical procedure Lupus Migraines Myelomalacia of cervical cord Myocardial infarction x4, 1997, 1998, 2005, 2017 Nasal sinus polyp Osteoarthritis Peripheral neuropathy Rectal polyp UTI (urinary tract infection) VF (ventricular fibrillation) Surgical History Surgical History H/O cardiac catheterization She stated that she has multiple stents. History of heart artery stent Patient stated that she has multiple stents History of hysterectomy Due to endometriosis Hx of appendectomy 1977 Hx of cataract removal with insertion of prosthetic lens 2015 Hx of cholecystectomy 1977 Hx of fusion of cervical spine 2007 Hx of tonsillectomy Family History Family History Mother Stomach cancer Sibl
[2021-01-30] MEDS: LACTATED RINGERS 1,000 ML 999 ML IV CONT (21:35)
[2021-01-30 21:38] LABS: Alveolar/Arterial O2 Gradient 14.4 mmHg; Base Excess ABG -1.9 mEq/l (+/-2.0); Fractional Inspired Oxygen 21 %; HCO3 ABG 21.8 mEq/l (22.0-26.0); Oxygen Content ABG 16.6 %vol (16.0-22.0); Oxygen Saturation ABG 97.5 % (95.0-100.0); Oxyhemoglobin 95.6 % THb (90.0-100.0); PCO2 ABG 33.7 mmHg (35.0-45.0); PO2 FiO2 Ratio Arterial Blood 4.52 %; Total Hemoglobin 12.3 g/dL (12.0-18.0); pH ABG 7.428 (7.350-7.450)
[2021-01-30 21:39] LABS: Device ROOM AIR; Modified Allen's Test Pass; Site Drawn LEFT RADIAL
[2021-01-30 22:21] LABS: Basophils Absolute Auto 0.1 K/mm3 (0.0-0.1); Basophils Percent Auto 0.4 % (0.2-1.2); Eosinophils Absolute Auto 0.2 K/mm3 (0-0.3); Eosinophils Percent Auto 1.3 % (0-4.4); Hematocrit 33.2 % (37.0-47.0); Hemoglobin 10.8 g/dL (12.0-15.0); Immature Granulocyte Absolute 0.16 K/mm3 (0.00-0.031); Immature Granulocyte Percent A 1.2 % (0-0.5); Lymphocytes Percent Auto 16.5 % (18.3-44.2); Mean Corpuscular HGB Conc 32.5 g/dl (32-36); Mean Corpuscular Volume 101.5 fl (80-100); Mean Platelet Volume 10.1 fl (7.4-10.4); Monocytes Absolute Auto 1.2 K/mm3 (0.1-0.6); Monocytes Percent Auto 9.2 % (2.6-8.5); Neutrophils Absolute Auto 9.5 K/mm3 (1.3-6.7); Neutrophils Percent Auto 71.4 % (45.5-73.1); Nucleated Red Blood Cells Perc 0.2 % (0.0-0.2); Platelet Count Result 212 k/mm3 (150-375); Red Blood Count 3.27 M/mm3 (4.2-5.4); Red Cell Distribution Width 14.6 % (11.5-14.5); White Blood Count 13.4 K/mm3 (4.5-10.0)
[2021-01-30 22:28] LABS: INR 1.1; Prothrombin Time 13.8 Seconds (11.1-14.7)
[2021-01-30 22:30] LABS: Glucose Point of Care 101 mg/dl (65-105)
[2021-01-30 22:31] VITALS: BP 114/65; PULSE 63; RESP 14; O2SAT 98
[2021-01-30 22:32] LABS: Alanine Aminotransferase 7 U/L (4-35); Albumin Level 4.2 g/dL (3.5-5.1); Alkaline Phosphatase 185 U/L (38-126); Anion Gap 13 mmol/L (8-16); Aspartate Amino Transferase 22 U/L (14-36); Bilirubin,Total 0.9 mg/dL (0.2-1.3); Blood Urea Nitrogen 68 mg/dL (7-17); Calcium 9.8 mg/dL (8.4-10.2); Carbon Dioxide 21 mmol/L (22-30); Chloride 105 mmol/L (98-107); Estimated CRCL calculation 25 ml/min; Estimated Glomerular Filt Rate 20; Glucose 109 mg/dL (65-110); Potassium 4.9 mmol/L (3.4-5.0); Sodium 139 mmol/L (137-145)
[2021-01-30 22:33] LABS: Ammonia < 9 umol/L (9-30); Lactic Acid Reflex 1.4 mmol/L (0.7-2.1)
[2021-01-30 22:41] LABS: NT Pro B Type Natriuretic Pept 659 pg/mL (5-100)
[2021-01-30 22:44] LABS: Troponin I < 0.012 ng/mL (0.000-0.034)
[2021-01-30 23:07] LABS: Add Urine Microscopic? YES; Appearance Urine Turbid (Clear); Bilirubin Urine Negative (Negative); Blood Urine 1+ (Negative); Color Urine Yellow (Yellow); Glucose Urine UA Negative (Negative); Ketones Urine Trace mg/dL (Negative); Leukocyte Esterase Ur 2+ LEU/UL (Negative); Nitrate Urine Positive (Negative); Protein Urine 2+ mg/dL (Negative); RBC Urine >75 /hpf (0-2); Specific Grav Ur 1.015 (1.001-1.035); Urobilinogen Urine Negative mg/dL (<2.0); WBC Clumps Urine Present /HPF; WBC Urine >75 /hpf
[2021-01-30 23:20] VITALS: BP 107/64; PULSE 64; RESP 16; O2SAT 97
[2021-01-30 23:55] VITALS: BP 113/71; PULSE 64; RESP 14; O2SAT 100
[2021-01-31] VITALS (13 sets, daily range): BP systolic 93–125; BP diastolic 36–68; PULSE 60–99; RESP 15–18; TEMP 36.1–37; O2SAT 94–100; BMI 31.0
[2021-01-31] MEDS: SODIUM CHLORIDE 0.9% IV 1,000 ML 999 ML IV CONT (00:07)
--- NOTE | 2021-01-31 00:15 | PC.NURSE ---
Dr Gutierrez at bedside for disimpaction
--- NOTE | 2021-01-31 00:54 | PM.IMHP ---
H&P: HPI History of Present Illness Date/Time: 01/31/21 00:54 Chief Complaint: Oliguria Narrative: This is a 70-year-old female with past medical history significant for Parkinson's disease, peripheral neuropathy, hypertension, chronic pain, bed ridden, detention resident. Patient was brought to the hospital due to a staff concerns for the patient's decreased urine output and fevers, abdominal pain and altered mental status. Preliminary workup was significant for CT of abdomen and pelvis with fecal impaction, infiltrates at the lung bases, a Barber was placed in the emergency room and turbid urine was drained a urinalysis showed numerous wbc's, a CT of the head did not show any acute abnormality. At the time of my visit patient was complaining of pain in her abdomen and not feeling well. Patient was started on antibiotic. Decision has been made to admit for further evaluation and treatment Review of Systems Review of Systems: Decreased urine output, abdominal pain,altered mentation. Constitutional: Constitutional: Reports chills, Reports fatigue, Reports fever(s), Reports malaise, Reports poor appetite and Reports weakness Eyes: Eyes: Denies change in vision ENT: Denies dysphagia, Denies nasal congestion, Denies nasal discharge, Denies nasal obstruction and Denies odynophagia Cardiovascular: Cardiovascular: Denies claudication, Denies radiating jaw, neck or arm pain, Denies palpitations and Denies dyspnea on exertion Respiratory: Respiratory: Denies cough and Denies dyspnea Gastrointestinal: Gastrointestinal: Reports abdominal pain, Reports constipation, Denies nausea and Denies vomiting Genitourinary: Genitourinary: Reports dysuria Musculoskeletal: Comments: Bed ridden Integumentary/Breasts: Skin/Breast: Denies rash, Denies skin ulcer and Denies sores Neurologic: Reports confusion and Reports focal weakness Psychiatric: Psychiatric: Reports as per HPI Endocrine: Endocrine: Reports as per HPI Hematologic/Lymphatic: Hematologic/Lymphatic: Reports as per HPI Allergic/Immunologic: Allergic/Immunologic: Reports as per HPI PMF Past Medical History Medical History A-fib Paroxysmal Abnormal MRI, cervical spine CAD (coronary artery disease) Cardiac catheterization 06/15/2018 demonstrated 2 vessel disease with chronic total occlusion of RCA and high-grade stenosis of obtuse marginal 1 Cervical spondylitic cord compression Cervical spondylosis Cervicalgia CHF (congestive heart failure) Echocardiogram May 2019: Basal inferior lateral wall, mid inferior lateral wall are hypokinetic, left atrial enlargement mild, moderate mitral valve regurgitation, mild pulmonic regurgitation, left ventricular chamber mildly enlarged, left ventricular systolic function 55-60, grade 1 diastolic dysfunction Closed right ankle fracture Colitis Diverticulitis DVT (deep venous thrombosis) The 1st DVT was in 1975 it is unclear when she had her 2nd DVT but non within the last 6 years. Endometriosis Fracture of great toe GERD (gastroesophageal reflux disease) History of angina Hyperlipidemia Hypertension Internal hemorrhoid Irritable bowel syndrome Mixed Left wrist fracture And right wrist. No surgical procedure Lupus Migraines Myelomalacia of cervical cord Myocardial infarction x4, 1997, 1998, 2004, 2017 Nasal sinus polyp Osteoarthritis Peripheral neuropathy Rectal polyp UTI (urinary tract infection) VF (ventricular fibrillation) Surgical History Surgical History H/O cardiac catheterization She stated that she has multiple stents. History of heart artery stent Patient stated that she has multiple stents History of hysterectomy Due to endometriosis Hx of appendectomy 1978 Hx of cataract removal with insertion of prosthetic lens 2016 Hx of cholecystectomy 1978 Hx of fusion of cervical spine 2007 Hx of tonsil
--- NOTE | 2021-01-31 01:48 | ADMGEN ---
This patient, Jody Ingram, was admitted to [facility] Surg Room 312-01 at 0125. Patient/family oriented to hospital policies and general routines including ID bracelet, bed and alarms, visiting hours, pain management, procedures, bathroom and other care routines, personal items, smoking policy, room service/diet, and visiting hours. Information on how to activate the Rapid Response Team has been discussed. Patient/Family are encouraged to report perceived risks to care and to ask questions if they do not understand what they are told or what they should do.
--- NOTE | 2021-01-31 03:20 | ADMGEN ---
This patient, Jody Ingram, was admitted to [facility] Surg Room 312-01 at 0125. Patient/family oriented to hospital policies and general routines including ID bracelet, bed and alarms, visiting hours, pain management, procedures, bathroom and other care routines, personal items, smoking policy, room service/diet, and visiting hours. Information on how to activate the Rapid Response Team has been discussed. Patient/Family are encouraged to report perceived risks to care and to ask questions if they do not understand what they are told or what they should do.
[2021-01-31] MEDS: SODIUM CHLORIDE 0.9% IV 1,000 ML 125 ML IV CONT (06:40)
[2021-01-31 08:35] LABS: Glucose Point of Care 77 mg/dl (65-105)
[2021-01-31 10:18] LABS: Hematocrit 31.9 % (37.0-47.0); Mean Corpuscular HGB Conc 31.3 g/dl (32-36); Mean Corpuscular Hemoglobin 32.3 pg (26-34); Mean Corpuscular Volume 102.9 fl (80-100); Mean Platelet Volume 10.1 fl (7.4-10.4); Platelet Count Result 189 k/mm3 (150-375); Red Cell Distribution Width 14.6 % (11.5-14.5)
[2021-01-31] MEDS: polyethylene glycoL 3350 17 GM POWD.PACK PO ×2 (10:43→18:20)
[2021-01-31] MEDS: DOCUSATE SODIUM 100 MG CAPSULE PO ×2 (10:43→21:02)
[2021-01-31 10:55] LABS: Anion Gap 11 mmol/L (8-16); Blood Urea Nitrogen 66 mg/dL (7-17); Calcium 9.1 mg/dL (8.4-10.2); Carbon Dioxide 20 mmol/L (22-30); Chloride 108 mmol/L (98-107); Estimated CRCL calculation 34 ml/min; Estimated Glomerular Filt Rate 30; Glucose 83 mg/dL (65-110); Sodium 139 mmol/L (137-145)
[2021-01-31 12:12] LABS: Glucose Point of Care 79 mg/dl (65-105)
--- NOTE | 2021-01-31 15:37 | P.PNIM_ITS ---
Progress Note: A&P Assessment and Plan (1) Pneumonia: Code(s): J18.9 - Pneumonia, unspecified organism Status: Acute Assessment and Plan: Patchy ground-glass opacities in the lower lung suspicious for pneumonia noted on CT * Continue IV Levaquin * She is maintaining adequate oxygen saturations on room air * Check Legionella and pneumococcal urinary antigens * Sputum culture will be attempted for collection * Blood cultures pending * Supportive care to include bronchodilators, expectorants, antipyretics (2) UTI (urinary tract infection): Code(s): N39.0 - Urinary tract infection, site not specified Status: Acute Assessment and Plan: UA abnormal on presentation. She has not able to indicate urinary symptoms to me. * IV Levaquin for treatment of pneumonia will be continued * Urine cultures are pending. Await results and tailor antibiotics accordingly. * Barber catheter initiated on presentation. She will need voiding trial as soon as possible. (3) Fecal impaction in rectum: Code(s): K56.41 - Fecal impaction Status: Acute Assessment and Plan: CT shows fecal impaction of the distal colon and rectum with 10 cm stool ball present in the rectum * Dulcolax suppository, MiraLax b.i.d., and Colace * Soapsuds enema * She is on chronic narcotic pain medication, putting her at risk for constipation. Avoid narcotics as much as possible. (4) HO (acute kidney injury): Code(s): N17.9 - Acute kidney failure, unspecified Status: Acute Assessment and Plan: Baseline creatinine is 0.9-1.2. Creatinine was 2.4 on presentation. * Most likely prerenal etiology given improvement with IV fluids. Creatinine is 1.7 today. * Given history of CHF, will discontinue IV fluids as she has been adequately rehydrated and is tolerating p.o. intake. * Monitor renal function closely and avoid nephrotoxic agents. * Hold lisinopril and furosemide (5) CHF (congestive heart failure): Qualifiers: Heart failure chronicity: chronic Heart failure type: diastolic Qualified Code(s): I50.32 - Chronic diastolic (congestive) heart failure Code(s): I50.9 - Heart failure, unspecified Status: Chronic Assessment and Plan: She appears euvolemic on exam. * Home Lasix 40 mg daily on hold given HO. Resume when clinically appropriate * Mild interstitial edema noted on CXR although no correlating clinical symptoms. Discontinue IV fluids * Monitor intake and output. Weigh daily (6) Hypertension: Qualifiers: Hypertension type: essential hypertension Qualified Code(s): I10 - Essential (primary) hypertension Code(s): I10 - Essential (primary) hypertension Status: Chronic Assessment and Plan: Blood pressure reviewed and has been somewhat soft in the upper 90s systolic. BP improving, last BP 125/36. * Hold antihypertensives. * Monitor BP trends (7) Person under investigation for COVID-19: Code(s): Z20.822 - Contact with and (suspected) exposure to COVID-19 Status: Acute Assessment and Plan: COVID-19 test pending * Continue isolation precautions while awaiting results * She is not a candidate for COVID-19 specific treatment including dexamethasone or remdesivir as she has no oxygen requirements * She reports she completed COVID-19 vaccination (8) CAD (coronary artery disease): Code(s): I25.10 - Atherosclerotic heart disease of [place] coronary artery without angina
--- NOTE | 2021-01-31 15:37 | PM.IMPN ---
Progress Note: A&P Assessment and Plan (1) Pneumonia: Code(s): J18.9 - Pneumonia, unspecified organism Status: Acute Assessment and Plan: Patchy ground-glass opacities in the lower lung suspicious for pneumonia noted on CT Continue IV Levaquin She is maintaining adequate oxygen saturations on room air Check Legionella and pneumococcal urinary antigens Sputum culture will be attempted for collection Blood cultures pending Supportive care to include bronchodilators, expectorants, antipyretics (2) UTI (urinary tract infection): Code(s): N39.0 - Urinary tract infection, site not specified Status: Acute Assessment and Plan: UA abnormal on presentation. She has not able to indicate urinary symptoms to me. IV Levaquin for treatment of pneumonia will be continued Urine cultures are pending. Await results and tailor antibiotics accordingly. Barber catheter initiated on presentation. She will need voiding trial as soon as possible. (3) Fecal impaction in rectum: Code(s): K56.41 - Fecal impaction Status: Acute Assessment and Plan: CT shows fecal impaction of the distal colon and rectum with 10 cm stool ball present in the rectum Dulcolax suppository, MiraLax b.i.d., and Colace Soapsuds enema She is on chronic narcotic pain medication, putting her at risk for constipation. Avoid narcotics as much as possible. (4) HO (acute kidney injury): Code(s): N17.9 - Acute kidney failure, unspecified Status: Acute Assessment and Plan: Baseline creatinine is 0.9-1.2. Creatinine was 2.4 on presentation. Most likely prerenal etiology given improvement with IV fluids. Creatinine is 1.7 today. Given history of CHF, will discontinue IV fluids as she has been adequately rehydrated and is tolerating p.o. intake. Monitor renal function closely and avoid nephrotoxic agents. Hold lisinopril and furosemide (5) CHF (congestive heart failure): Qualifiers: Heart failure chronicity: chronic Heart failure type: diastolic Qualified Code(s): I50.32 - Chronic diastolic (congestive) heart failure Code(s): I50.9 - Heart failure, unspecified Status: Chronic Assessment and Plan: She appears euvolemic on exam. Home Lasix 40 mg daily on hold given HO. Resume when clinically appropriate Mild interstitial edema noted on CXR although no correlating clinical symptoms. Discontinue IV fluids Monitor intake and output. Weigh daily (6) Hypertension: Qualifiers: Hypertension type: essential hypertension Qualified Code(s): I10 - Essential (primary) hypertension Code(s): I10 - Essential (primary) hypertension Status: Chronic Assessment and Plan: Blood pressure reviewed and has been somewhat soft in the upper 90s systolic. BP improving, last BP 125/36. Hold antihypertensives. Monitor BP trends (7) Person under investigation for COVID-19: Code(s): Z20.822 - Contact with and (suspected) exposure to COVID-19 Status: Acute Assessment and Plan: COVID-19 test pending Continue isolation precautions while awaiting results She is not a candidate for COVID-19 specific treatment including dexamethasone or remdesivir as she has no oxygen requirements She reports she completed COVID-19 vaccination (8) CAD (coronary artery disease): Code(s): I25.10 - Atherosclerotic heart disease of [place] coronary artery without angina pectoris Status: Acute Assessment and Plan: No acute issues at this time. Continue Brilinta and aspirin Metoprolol on hold Subjective Date/time seen: 01/31/21 15:37 Interval history: Date of service: 01/31/2021 Jody Ingram is a 70 year old female with a history of atrial fibrillation, CAD, CHF, HTN, hyperlipidemia, lupus, and several other medical problems who is seen in follow-up for pneumonia and suspected UTI. She was
[2021-01-31 17:21] LABS: Glucose Point of Care 93 mg/dl (65-105)
[2021-01-31 17:35] LABS: SARS-CoV-2 RNA PCR Negative
[2021-01-31] MEDS: guaiFENesin 12 HR 600 MG TABCR PO (21:02)
[2021-01-31] MEDS: LORazepam INJ (*CRX) 2 MG/ML VIAL 0.5 MG IV PUSH (21:38)
[2021-02-01] VITALS (8 sets, daily range): BP systolic 97–138; BP diastolic 57–63; PULSE 79–103; RESP 20–22; TEMP 36.3–36.5; O2SAT 97
[2021-02-01 06:21] LABS: Basophils Percent Auto 0.4 % (0.2-1.2); Eosinophils Absolute Auto 0.1 K/mm3 (0-0.3); Eosinophils Percent Auto 0.5 % (0-4.4); Hematocrit 31.1 % (37.0-47.0); Hemoglobin 9.7 g/dL (12.0-15.0); Immature Granulocyte Absolute 0.11 K/mm3 (0.00-0.031); Immature Granulocyte Percent A 1.2 % (0-0.5); Lymphocytes Absolute Auto 1.83 K/mm3 (0.9-3.2); Lymphocytes Percent Auto 19.2 % (18.3-44.2); Mean Corpuscular HGB Conc 31.2 g/dl (32-36); Mean Corpuscular Hemoglobin 32.9 pg (26-34); Mean Corpuscular Volume 105.4 fl (80-100); Mean Platelet Volume 10.3 fl (7.4-10.4); Monocytes Absolute Auto 1.2 K/mm3 (0.1-0.6); Neutrophils Absolute Auto 6.2 K/mm3 (1.3-6.7); Neutrophils Percent Auto 65.7 % (45.5-73.1); Nucleated Red Blood Cells Perc 0.2 % (0.0-0.2); Platelet Count Result 193 k/mm3 (150-375); Red Blood Count 2.95 M/mm3 (4.2-5.4); Red Cell Distribution Width 14.6 % (11.5-14.5); White Blood Count 9.5 K/mm3 (4.5-10.0)
[2021-02-01 06:58] LABS: Alanine Aminotransferase 12 U/L (4-35); Albumin Level 3.7 g/dL (3.5-5.1); Alkaline Phosphatase 162 U/L (38-126); Anion Gap 14 mmol/L (8-16); Aspartate Amino Transferase 23 U/L (14-36); Bilirubin,Total 0.9 mg/dL (0.2-1.3); Blood Urea Nitrogen 42 mg/dL (7-17); Calcium 9.3 mg/dL (8.4-10.2); Carbon Dioxide 21 mmol/L (22-30); Chloride 110 mmol/L (98-107); Estimated CRCL calculation 47 ml/min; Estimated Glomerular Filt Rate 44; Glucose 93 mg/dL (65-110); Potassium 4.2 mmol/L (3.4-5.0); Sodium 145 mmol/L (137-145)
[2021-02-01 07:44] LABS: Glucose Point of Care 95 mg/dl (65-105)
--- NOTE | 2021-02-01 10:22 | PCPTNOTE ---
Attempted PT evaluation this date, pt refused. Will attempt at a later date/time.
--- NOTE | 2021-02-01 10:51 | PCOTNOTE ---
Attempted OT Evaluation, despite education on benefits with participating with therapy, patient reports does not want to participate at this time. Will follow and attempt at later time.
--- NOTE | 2021-02-01 11:20 | P.PNIM_ITS ---
Progress Note: A&P Assessment and Plan (1) UTI (urinary tract infection): Code(s): N39.0 - Urinary tract infection, site not specified Status: Acute Assessment and Plan: UA abnormal on presentation. * She was started on IV Levaquin given pneumonia as below. * Urine cultures with growth of >100k E coli, resistant to Levaquin * Will transition to IV ceftriaxone (2) Pneumonia: Code(s): J18.9 - Pneumonia, unspecified organism Status: Acute Assessment and Plan: Patchy ground-glass opacities in the lower lung suspicious for pneumonia noted on CT * Stop Levaquin. Transition to IV ceftriaxone. Will add azithromycin for coverage. * She is maintaining adequate oxygen saturations on room air * Legionella and pneumococcal urinary antigens pending * Sputum culture will be attempted for collection * Blood cultures pending; negative to date * Supportive care to include bronchodilators, expectorants, antipyretics (3) Fecal impaction in rectum: Code(s): K56.41 - Fecal impaction Status: Acute Assessment and Plan: CT shows fecal impaction of the distal colon and rectum with 10 cm stool ball present in the rectum * Dulcolax suppository, MiraLax b.i.d., and Colace * She was reportedly manually disimpacted in the ED on presentation. * She had several soft stools yesterday * She has refused repeat abdominal x-ray to assess impaction today. * She is on chronic narcotic pain medication, putting her at risk for constipation. She will need a long-term bowel regimen * Plan for repeat abdominal x-ray tomorrow if patient is agreeable (4) HO (acute kidney injury): Code(s): N17.9 - Acute kidney failure, unspecified Status: Acute Assessment and Plan: Baseline creatinine is 0.9-1.2. Creatinine was 2.4 on presentation. * Most likely prerenal etiology given improvement with IV fluids. Creatinine is 1.2 today. * Given history of CHF, IV fluids discontinued as she was adequately rehydrated and is tolerating p.o. intake. * Monitor renal function closely and avoid nephrotoxic agents. * Hold lisinopril and furosemide (5) CHF (congestive heart failure): Qualifiers: Heart failure chronicity: chronic Heart failure type: diastolic Qualified Code(s): I50.32 - Chronic diastolic (congestive) heart failure Code(s): I50.9 - Heart failure, unspecified Status: Chronic Assessment and Plan: She appears euvolemic on exam. * Home Lasix 40 mg daily on hold given HO. Resume when clinically appropriate * Mild interstitial edema noted on CXR although no correlating clinical symptoms. Avoid further IV fluids * Monitor intake and output. Weigh daily (6) Hypertension: Qualifiers: Hypertension type: essential hypertension Qualified Code(s): I10 - Essential (primary) hypertension Code(s): I10 - Essential (primary) hypertension Status: Chronic Assessment and Plan: Blood pressure reviewed and has been soft. Last BP was 97/63 this morning. * Antihypertensives are on hold * She has refused repeat BP checks * Monitor BP trends (7) CAD (coronary artery disease): Code(s): I25.10 - Atherosclerotic heart disease of [place] coronary artery without angina pectoris Status: Acute Assessment and Plan: No acute issues at this time. * Continue Brilinta and aspirin * Metoprolol on hold (8) COVID-19 ruled out by laboratory testing: Code(s): Z20.822 - Contact with a
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
--- NOTE | 2021-02-01 12:00 | PCSTNOTE ---
A Speech Therapy Communication Evaluation was attempted this morning however patient refused by stating this therapist was trying to kill her. Any attempt at drawing the patient out to talk about herself or the pain she was complaining about triggered a comment that involved the F word including, You don't XX care, or It's none of your XX business. The attempt to evaluate communication was terminated when it was determined that patient was not going to cooperate with evaluation tasks and my presence was increasing her agitation. Results were discussed with nurse and with Kaycee Hospitalist, who voiced understanding. No further attempts are recommended at this time
[2021-02-02] VITALS (9 sets, daily range): BP systolic 93–110; BP diastolic 60–63; PULSE 95–111; RESP 18–20; TEMP 36.4–36.8; O2SAT 97–99
[2021-02-02 06:22] LABS: Hematocrit 29.5 % (37.0-47.0); Hemoglobin 9.4 g/dL (12.0-15.0)
[2021-02-02 06:47] LABS: Anion Gap 11 mmol/L (8-16); Blood Urea Nitrogen 25 mg/dL (7-17); Calcium 9.2 mg/dL (8.4-10.2); Carbon Dioxide 21 mmol/L (22-30); Chloride 110 mmol/L (98-107); Estimated CRCL calculation 70 ml/min; Estimated Glomerular Filt Rate > 60; Glucose 111 mg/dL (65-110); Potassium 3.7 mmol/L (3.4-5.0); Sodium 142 mmol/L (137-145)
--- NOTE | 2021-02-02 07:58 | PCOTNOTE ---
Attempted to see patient for OT evaluation this AM and she refused any/all activity. Patient in bed trying to call her ride and is not oriented to place. She states that she has a headache and does not want to get up at this time. Will continue to attempt as able.
[2021-02-02] MEDS: ALPRAZolam (*CRX) 0.5 MG TABLET PO (08:21)
[2021-02-02] MEDS: CARBIDOPA/LEVODOPA 10/100 MG TABLET 1 TABLET PO ×3 (08:21→17:19)
[2021-02-02] MEDS: allopurinoL 100 MG TABLET PO (08:21)
[2021-02-02] MEDS: DOCUSATE SODIUM 100 MG CAPSULE PO ×2 (08:21→20:36)
[2021-02-02] MEDS: ATORVASTATIN 40 MG TABLET PO (08:21)
[2021-02-02] MEDS: PREGABALIN (*CRX) 75 MG CAPSULE PO ×2 (08:21→17:23)
[2021-02-02] MEDS: HYOSCYAMINE SULFATE 0.125 MG TABLET PO ×2 (08:21→17:19)
[2021-02-02] MEDS: guaiFENesin 12 HR 600 MG TABCR PO ×2 (08:22→20:36)
[2021-02-02] MEDS: AZITHROMYCIN 250 MG TABLET 500 MG PO (08:22)
[2021-02-02] MEDS: DULoxetine HCL 30 MG CAPSULE.DR 60 MG PO (08:23)
[2021-02-02] MEDS: ISOSORBIDE MONONITRATE 60 MG TAB.ER.24H PO (08:23)
[2021-02-02] MEDS: ASPIRIN 81 MG CHEWABLE TABLET PO (08:23)
[2021-02-02] MEDS: TICAGRELOR 90 MG TABLET PO ×2 (08:23→20:36)
[2021-02-02] MEDS: ENOXAPARIN 40 MG/0.4 ML SYRINGE SUB-Q (08:24)
--- NOTE | 2021-02-02 09:11 | PM.IMPN ---
Progress Note: A&P Assessment and Plan (1) UTI (urinary tract infection): Code(s): N39.0 - Urinary tract infection, site not specified Status: Acute (2) Pneumonia: Code(s): J18.9 - Pneumonia, unspecified organism Status: Acute (3) Fecal impaction in rectum: Code(s): K56.41 - Fecal impaction Status: Acute (4) HO (acute kidney injury): Code(s): N17.9 - Acute kidney failure, unspecified Status: Acute (5) CHF (congestive heart failure): Qualifiers: Heart failure chronicity: chronic Heart failure type: diastolic Qualified Code(s): I50.32 - Chronic diastolic (congestive) heart failure Code(s): I50.9 - Heart failure, unspecified Status: Chronic Assessment and Plan: She appears euvolemic on exam. Home Lasix 40 mg daily on hold given HO. Resume when clinically appropriate Mild interstitial edema noted on CXR although no correlating clinical symptoms. Avoid further IV fluids Monitor intake and output. Weigh daily (6) Hypertension: Qualifiers: Hypertension type: essential hypertension Qualified Code(s): I10 - Essential (primary) hypertension Code(s): I10 - Essential (primary) hypertension Status: Chronic Assessment and Plan: Blood pressure reviewed and has been soft. Last BP was 97/63 this morning. Antihypertensives are on hold She has refused repeat BP checks Monitor BP trends (7) CAD (coronary artery disease): Code(s): I25.10 - Atherosclerotic heart disease of [place] coronary artery without angina pectoris Status: Acute Assessment and Plan: No acute issues at this time. Continue Brilinta and aspirin Metoprolol on hold (8) COVID-19 ruled out by laboratory testing: Code(s): Z20.822 - Contact with and (suspected) exposure to COVID-19 Status: Acute Assessment and Plan: COVID-19 test negative on 01/31/2021. Discontinue isolation precautions. She reports she completed COVID-19 vaccination. (9) Aggressive behavior: Code(s): R46.89 - Other symptoms and signs involving appearance and behavior Status: Acute Additional Plan Macrocytic Anemia: b12 & folate normal; anemia studies pending for haptoglobin, retic, iron, etc; hgb about 12.5 in June, running between 9-11 here without overt bleeding Consitpation: fecal impaction on abd xray; 10cm stool ball in rectum on CT; may need to try enema UTI: Ecoli growing in urine, sensitive to CTX, continue today, no leukocytosis Concern for pneumonia: discuss symptoms, see urine antigen studies pending; some bibasilar opacities in lower lungs, but may represent atelectasis, Time Spent With Patient Time with patient: less than 15 minutes Subjective Date/time seen: 02/02/21 09:11 no acute complaints resting comfortably Review of Systems Review of Systems: All systems reviewed & are unremarkable except as noted in HPI and below Exam Const: General: no acute distress Neck: Neck: no JVD Resp: Effort & Inspection: normal respiratory effort Auscultation: clear to auscultation bilaterally Cardio: Rate: regular rate Rhythm: regular rhythm GI: Inspection: non-distended Objective Data Vital Signs Vital Signs: Vital Signs - 24 hr 02/01/21 12:00 02/01/21 16:00 02/01/21 20:00 Temperature Pulse Rate 101 H 98 100 Respiratory Rate Blood Pressure Pulse Oximetry 97 02/01/21 22:00 02/02/21 00:00 02/02/21 04:00 Temperature 97.4 F L Pulse Rate 103 H 104 H 107 H Respiratory Rate 22 H Blood Pressure 138/57 L Pulse Oximetry 97 02/02/21 06:00 Temperature 98.2 F Pulse Rate 108 H Respiratory Rate 20 Blood Pressure 93/60 L Pulse Oximetry 99 Intake/Output Intake/Output: Intake & Output 01/30/21 01/31/21 02/01/21 02/02/21 23:59 23:59 23:59 23:59 Intake Total 1000 2650 250 550 Output Total 0 2150 750 Balance 1000 600 -1900 -200 Meds/Results
[2021-02-02 10:14] LABS: Basophils Percent Auto 0.5 % (0.2-1.2); Eosinophils Percent Auto 0.5 % (0-4.4); Hematocrit 29.2 % (37.0-47.0); Hemoglobin 9.5 g/dL (12.0-15.0); Immature Granulocyte Absolute 0.09 K/mm3 (0.00-0.031); Lymphocytes Absolute Auto 1.76 K/mm3 (0.9-3.2); Lymphocytes Percent Auto 19.8 % (18.3-44.2); Mean Corpuscular HGB Conc 32.5 g/dl (32-36); Mean Corpuscular Hemoglobin 32.5 pg (26-34); Mean Platelet Volume 9.8 fl (7.4-10.4); Monocytes Absolute Auto 1.1 K/mm3 (0.1-0.6); Monocytes Percent Auto 11.8 % (2.6-8.5); Neutrophils Absolute Auto 5.9 K/mm3 (1.3-6.7); Neutrophils Percent Auto 66.4 % (45.5-73.1); Platelet Count Result 195 k/mm3 (150-375); Red Blood Count 2.92 M/mm3 (4.2-5.4); Red Cell Distribution Width 14.8 % (11.5-14.5); White Blood Count 8.9 K/mm3 (4.5-10.0)
[2021-02-02 10:27] LABS: Iron 62 ug/dL (37-170); Lactate Dehydrogenase 505 U/L (313-618)
[2021-02-02 10:36] LABS: Percent Iron Saturation 26 % (20-50)
[2021-02-02 10:37] LABS: Immature Reticulocyte Fraction 18.6 % (3.0-15.9); Reticulocyte Hemoglobin Conten 35.2 pg (28.2-35.7); Reticulocyte Percent 1.71 % (0.7-4.3); Reticulocytes Absolute 0.05 B/L (32.2-175.7)
--- NOTE | 2021-02-02 11:07 | PCNFU ---
Nutrition Follow-Up Complete: Increased protein needs as related to wounds as evidenced by left heel unstageable pressure ulcer. Goal: Adequate Intake of at least 75% of meals/supplements Patient is limited progress towards goal. We will continue current goal. Pt current nutrition is Heart Healthy with [place] BID. Last recorded weight is 94.8 kg, down from 95.3 kg on admit. Bowel Motility:+BM reported 01/31 Labs Reviewed:Glu 111,BUN 25, Hct 29.5,Hgb 9.4 Meds Noted:Brilinta, Lipitor, Mucinex, Lyrica, Xanax, Rocephin. Additional Notes: Nutrition follow up. Patient has been refusing meals. Aggressive/combative behavior has been noted. MINING TEACHER stated patient did drink juice for breakfast. Patient complaining of nausea today. Skin: unstable pressure ulcer on left heel. Protein Modular added for wound healing providing an additional 90 kcals and 2.5 gms protein. PO intake encouraged. Monitoring: Will monitor every 3 days.
[2021-02-02] MEDS: ACETAMINOPHEN 325 MG TABLET 650 MG PO ×2 (11:40→17:22)
--- NOTE | 2021-02-02 13:59 | PC.NURSE ---
Rafael Vera gives permission for Adis Manjarrez to receive information about Jody
[2021-02-02 18:35] LABS: Glucose Point of Care 110 mg/dl (65-105)
[2021-02-02 22:19] LABS: IFOB Positive Control Positive; Immunochemical Fecal Occult Bl Negative (N)
[2021-02-03] VITALS: PULSE 86
[2021-02-03 04:00] VITALS: PULSE 94
[2021-02-03 05:34] VITALS: BP 125/74; PULSE 87; RESP 18; TEMP 36.4; O2SAT 95
[2021-02-03 07:16] LABS: Basophils Percent Auto 0.4 % (0.2-1.2); Eosinophils Absolute Auto 0.2 K/mm3 (0-0.3); Eosinophils Percent Auto 1.9 % (0-4.4); Hematocrit 28.7 % (37.0-47.0); Hemoglobin 9.2 g/dL (12.0-15.0); Immature Granulocyte Absolute 0.07 K/mm3 (0.00-0.031); Immature Granulocyte Percent A 0.8 % (0-0.5); Lymphocytes Percent Auto 28.7 % (18.3-44.2); Mean Corpuscular HGB Conc 32.1 g/dl (32-36); Mean Corpuscular Hemoglobin 32.7 pg (26-34); Mean Corpuscular Volume 102.1 fl (80-100); Mean Platelet Volume 10.1 fl (7.4-10.4); Monocytes Absolute Auto 0.9 K/mm3 (0.1-0.6); Neutrophils Absolute Auto 5.3 K/mm3 (1.3-6.7); Neutrophils Percent Auto 58.2 % (45.5-73.1); Platelet Count Result 204 k/mm3 (150-375); Red Blood Count 2.81 M/mm3 (4.2-5.4); Red Cell Distribution Width 14.8 % (11.5-14.5); White Blood Count 9.1 K/mm3 (4.5-10.0)
[2021-02-03 07:32] LABS: Alanine Aminotransferase 9 U/L (4-35); Albumin Level 3.6 g/dL (3.5-5.1); Alkaline Phosphatase 147 U/L (38-126); Anion Gap 9 mmol/L (8-16); Aspartate Amino Transferase 24 U/L (14-36); Bilirubin,Total 0.7 mg/dL (0.2-1.3); Blood Urea Nitrogen 17 mg/dL (7-17); Carbon Dioxide 26 mmol/L (22-30); Chloride 108 mmol/L (98-107); Estimated CRCL calculation 69 ml/min; Estimated Glomerular Filt Rate > 60; Glucose 109 mg/dL (65-110); Magnesium 1.9 mg/dL (1.6-2.3); Phosphorus 3.1 mg/dL (2.5-4.5); Potassium 3.3 mmol/L (3.4-5.0); Sodium 143 mmol/L (137-145)
[2021-02-03] MEDS: CARBIDOPA/LEVODOPA 10/100 MG TABLET 1 TABLET PO ×3 (08:47→16:50)
[2021-02-03] MEDS: ENOXAPARIN 40 MG/0.4 ML SYRINGE SUB-Q (08:47)
[2021-02-03] MEDS: TICAGRELOR 90 MG TABLET PO ×2 (08:48→16:50)
[2021-02-03] MEDS: HYOSCYAMINE SULFATE 0.125 MG TABLET PO ×2 (08:48→16:50)
[2021-02-03] MEDS: DOCUSATE SODIUM 100 MG CAPSULE PO (08:48)
[2021-02-03] MEDS: DULoxetine HCL 30 MG CAPSULE.DR 60 MG PO (08:48)
[2021-02-03] MEDS: AZITHROMYCIN 250 MG TABLET 500 MG PO (08:48)
[2021-02-03] MEDS: polyethylene glycoL 3350 17 GM POWD.PACK PO ×2 (08:48→16:49)
[2021-02-03] MEDS: ISOSORBIDE MONONITRATE 60 MG TAB.ER.24H PO (08:49)
[2021-02-03] MEDS: guaiFENesin 12 HR 600 MG TABCR PO (08:49)
[2021-02-03] MEDS: ATORVASTATIN 40 MG TABLET PO (08:49)
[2021-02-03] MEDS: ASPIRIN 81 MG CHEWABLE TABLET PO (08:49)
[2021-02-03] MEDS: ERGOCALCIFEROL 50,000 UNIT CAPSULE 50000 UNITS PO (08:49)
[2021-02-03] MEDS: allopurinoL 100 MG TABLET PO (08:49)
[2021-02-03] MEDS: PREGABALIN (*CRX) 75 MG CAPSULE PO ×2 (09:05→16:57)
[2021-02-03 09:07] VITALS: BMI 10.0
[2021-02-03] MEDS: POTASSIUM CHLORIDE 20 MEQ PACKET (FOR LIQUID) 60 MEQ PO (09:37)
[2021-02-03] MEDS: ACETAMINOPHEN 325 MG TABLET 650 MG PO (12:40)
[2021-02-03 14:00] VITALS: BP 100/59; PULSE 104; RESP 18; TEMP 36.1; O2SAT 97
--- NOTE | 2021-02-03 16:16 | PM.DS ---
DS: Admitting Diagnosis Discharge Date 02/03/2021 Admitting Diagnosis Altered mental status DS: Discharge Diagnosis Discharge Diagnosis (1) Aggressive behavior: Code(s): R46.89 - Other symptoms and signs involving appearance and behavior Status: Acute (2) CAD (coronary artery disease): Qualifiers: Coronary Disease-Associated Artery/Lesion type: [place] artery [place] vs. transplanted heart: [place] heart Associated angina: without angina Qualified Code(s): I25.10 - Atherosclerotic heart disease of [place] coronary artery without angina pectoris Code(s): I25.10 - Atherosclerotic heart disease of [place] coronary artery without angina pectoris Status: Acute (3) UTI (urinary tract infection): Qualifiers: Urinary tract infection type: acute cystitis Hematuria presence: without hematuria Qualified Code(s): N30.00 - Acute cystitis without hematuria Code(s): N39.0 - Urinary tract infection, site not specified Status: Acute (4) Myelomalacia of cervical cord: Code(s): G95.89 - Other specified diseases of spinal cord Status: Acute (5) Cervical spondylosis: Code(s): M47.812 - Spondylosis without myelopathy or radiculopathy, cervical region Status: Acute (6) Anxiety: Code(s): F41.9 - Anxiety disorder, unspecified Status: Acute (7) HO (acute kidney injury): Code(s): N17.9 - Acute kidney failure, unspecified Status: Resolved (8) Acute respiratory failure with hypoxia: Code(s): J96.01 - Acute respiratory failure with hypoxia Status: Resolved (9) Hyperlipidemia: Qualifiers: Hyperlipidemia type: unspecified Qualified Code(s): E78.5 - Hyperlipidemia, unspecified Code(s): E78.5 - Hyperlipidemia, unspecified Status: Chronic (10) Migraines: Qualifiers: Migraine type: unspecified Status migrainosus presence: without status migrainosus Intractability: not intractable Qualified Code(s): G43.909 - Migraine, unspecified, not intractable, without status migrainosus Code(s): G43.909 - Migraine, unspecified, not intractable, without status migrainosus Status: Acute (11) Hypertension: Qualifiers: Hypertension type: essential hypertension Qualified Code(s): I10 - Essential (primary) hypertension Code(s): I10 - Essential (primary) hypertension Status: Chronic (12) A-fib: Qualifiers: Atrial fibrillation type: paroxysmal Qualified Code(s): I48.0 - Paroxysmal atrial fibrillation Code(s): I48.91 - Unspecified atrial fibrillation Status: Chronic (13) CHF (congestive heart failure): Qualifiers: Heart failure type: diastolic Heart failure chronicity: chronic Qualified Code(s): I50.32 - Chronic diastolic (congestive) heart failure Code(s): I50.9 - Heart failure, unspecified Status: Chronic (14) Fracture of phalanx of multiple toes of right foot: Code(s): S92.911A - Unspecified fracture of right toe(s), initial encounter for closed fracture Status: Acute (15) CAD (coronary artery disease): Qualifiers: Coronary Disease-Associated Artery/Lesion type: [place] artery [place] vs. transplanted heart: [place] heart Associated angina: with stable angina Qualified Code(s): I25.118 - Atherosclerotic heart disease of [place] coronary artery with other forms of angina pectoris Code(s): I25.10 - Atherosclerotic heart disease of [place] coronary artery without angina pectoris Status: Chronic (16) Fecal impaction: Code(s): K56.41 - Fecal impaction Status: Resolved (17) Constipation: Qualifiers: Constipation type: drug induced constipation Qualified Code(s): K59.03 - Drug induced constipation Code(s): K59.00 - Constipation, unspecified Status: Acute (18) Community acquired pneumonia: Qualifiers: Laterality: unspecified
[2021-02-06 19:18] LABS: Pneumococcal Antigen Urine Not Detected (Not Detected)
[2021-02-07 14:18] LABS: Haptoglobin 214 mg/dL (43-212)
[2021-02-07 20:46] LABS: Legionella pneumophila Ag Ur Not Detected (Not Detected)
== END 2021-02-03 18:30 | DRG 193 ==
LOC: ANHED 21:49 → ANH3MEDSUR 01-31 00:55
PROVIDERS: Physician Assistant; Admitting Provider Internal Medicine; Emergency Provider General Practice; PCP Family Medicine; Visit Provider Internal Medicine
DX: J18.9 Pneumonia, unspecified organism (principal); J96.01 Acute respiratory failure with hypoxia; N39.0 Urinary tract infection, site not specified; G95.89 Other specified diseases of spinal cord; N17.9 Acute kidney failure, unspecified; I50.32 Chronic diastolic (congestive) heart failure; B96.20 Unspecified Escherichia coli [E. coli] as the cause of diseases classified elsewhere; R41.82 Altered mental status, unspecified; T44.3X5A Adverse effect of other parasympatholytics [anticholinergics and antimuscarinics] and spasmolytics, initial encounter; I25.10 Atherosclerotic heart disease of native coronary artery without angina pectoris; G20 Parkinson's disease; Z20.822 Contact with and (suspected) exposure to COVID-19; M47.812 Spondylosis without myelopathy or radiculopathy, cervical region; F41.9 Anxiety disorder, unspecified; E78.5 Hyperlipidemia, unspecified; G43.909 Migraine, unspecified, not intractable, without status migrainosus; I48.0 Paroxysmal atrial fibrillation; I11.0 Hypertensive heart disease with heart failure; S92.911A Unspecified fracture of right toe(s), initial encounter for closed fracture; K59.03 Drug induced constipation; T40.605A Adverse effect of unspecified narcotics, initial encounter; R33.8 Other retention of urine; K21.9 Gastro-esophageal reflux disease without esophagitis; K58.2 Mixed irritable bowel syndrome; R46.89 Other symptoms and signs involving appearance and behavior; N32.89 Other specified disorders of bladder; D64.9 Anemia, unspecified; X58.XXXA Exposure to other specified factors, initial encounter; M19.90 Unspecified osteoarthritis, unspecified site; G62.9 Polyneuropathy, unspecified; F17.210 Nicotine dependence, cigarettes, uncomplicated; Z95.5 Presence of coronary angioplasty implant and graft; Z86.718 Personal history of other venous thrombosis and embolism; I25.2 Old myocardial infarction; Z90.710 Acquired absence of both cervix and uterus; Z90.49 Acquired absence of other specified parts of digestive tract; Z98.1 Arthrodesis status
CPT/HCPCS: 36415; 36600; 70450; 71045; 74018; 74176; 80048; 80053; 81001; 82140; 82274; 82607; 82728; 82746; 82805; 82948; 83010; 83540; 83550; 83605; 83615; 83735; 83880; 84100; 84484; 85014; 85018; 85025; 85027; 85046; 85610; 85730; 87040; 87077; 87086; 87088; 87186; 87449; 87899; 93005; 96361; 96365; 96374; 97161; 97165; 99285; A9270; C9803; G0378; J0131; J0696; J1650; J1956; J2060; J7030; J7120; U0003; U0005